=== PATIENT | female | born 1950 | race Caucasian/White ===

== ENCOUNTER 2024-01-05 06:33 | Outpatient (CLI) | payer MEDICARE, SELFPAY ==
--- NOTE | ~2024-01-05 | CT_ITS ---
EXAMINATION: CT wrist RT wo con DATE: 01/05/2024 07:00 INDICATION: Right wrist injury. TECHNIQUE: Computed tomography (CT) of the right wrist was performed without intravenous contrast. Au tomated exposure control and iterative reconstruction technique were employed. The dose-length produc t was 285.48 mGy-cm. COMPARISON: None FINDINGS: Bone alignment is normal. No fracture. There is severe osteoarthritis of lunate-capitate doc int, mild osteoarthritis of lunate-hamate joint, moderate osteoarthritis of triscaphe joint, and april re osteoarthritis of first carpometacarpal joint. There are loose bodies dorsal to the carpus. IMPRESSION: 1. Polyarticular osteoarthritis. 2. Loose bodies dorsal to the carpus. Reviewed, dictated and finalized at location A.
--- NOTE | ~2024-01-05 | CT_ITS ---
CT pelvis wo con Ordering provider: Zhou Garcia, DO History: . FALL INTITAL ENCOUNTER/ABN XR . Comparison: None. Technique: CT pelvis without oral and IV contrast. . Automated exposure control and iterative recons truction technique were employed. The dose-length product was 779.23 mGy-cm. Findings: BONES: No pelvic fracture or hip dislocation. Sclerotic lesion in the right iliac bone most likely be nign. Follow-up advised. Age appropriate degenerative changes of the visualized lower lumbar spine. T he hip joint spaces are well maintained. Bilateral sacroiliitis. SUPERFICIAL SOFT TISSUES: Normal. Linear density seen in the right buttock area may be foreign body. PELVIC ORGANS: The bladder is underfilled with thickened wall. VISUALIZED BOWEL AND MESENTERY: Normal. No free air or free fluid. No lymphadenopathy. Mild diverticu losis. Normal appendix RETROPERITONEUM: Moderate atheromatous disease. IMPRESSION: No acute osseous abnormalities. No acute pelvic abnormality. Reviewed, dictated and finalized at location A.
== END 2024-01-05 06:34 | disposition home or self-care (01) ==
PROVIDERS: PCP Student in an Organized Health Care Education/Training Program; Visit Provider Student in an Organized Health Care Education/Training Program
DX: R93.89 Abnormal findings on diagnostic imaging of other specified body structures (principal); W19.XXXA Unspecified fall, initial encounter; M24.031 Loose body in right wrist; M15.9 Polyosteoarthritis, unspecified
CPT/HCPCS: 72192; 73200

== ENCOUNTER 2024-03-01 16:38 | Outpatient (CLI) | payer MEDICARE, SELFPAY ==
--- NOTE | ~2024-03-01 | XR_ITS ---
XR knee RT 3V Ordering provider: Zhou Garcia, DO History: . acute knee pain . Comparison: None. FINDINGS: BONES: No acute fracture or dislocation. 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 Clinical evaluation for trauma advised. JOINT SPACES: Normal. Marginal osteophytes in the knee and patella. 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 SOFT TISSUES: Vascular atherosclerotic changes. Fluid seen in the suprapatellar bursa. IMPRESSION: No definite acute osseous abnormality right knee. Reviewed, dictated and finalized at location A.
== END 2024-03-01 16:39 | disposition home or self-care (01) ==
PROVIDERS: PCP Student in an Organized Health Care Education/Training Program; Visit Provider Student in an Organized Health Care Education/Training Program
DX: M25.561 Pain in right knee (principal)
CPT/HCPCS: 73562

== ENCOUNTER 2024-06-10 05:58 | Emergency (ER) | payer MEDICARE, SELFPAY ==
[2024-06-10] VITALS (17 sets, daily range): BP systolic 126–162; BP diastolic 70–83; PULSE 64–90; RESP 13–20; TEMP 36.8; O2SAT 92–98
--- NOTE | ~2024-06-10 | XR_ITS ---
Portable chest x-ray Comparison: None Clinical History: Chest pain, tachycardia Findings: Lungs are clear, without focal consolidation or pleural effusion. Cardiomediastinal silho uette is mildly prominent, status post aortic valve replacement with pacemaker device. Bones and soft tissues are unremarkable. Impression: Clear lungs. Status post aortic valve replacement with pacemaker device. Reviewed, dictated and finalized at location . NT COUNSEL Impression: Clear lungs. Status post aortic valve replacement with pacemaker device.
--- NOTE | 2024-06-10 06:08 | ECG_ITS ---
Test Date: 2024-06-10 06:11:19 Measurements Intervals [place] Rate: 81 P: 73 AR: 188 QRS: -64 QRSD: 194 T: 114 QT: 428 QTc: 499 Interpretive Statements ELECTRONIC VENTRICULAR PACEMAKER ABNORMAL RHYTHM ECG No previous ECG available for comparison Electronically Signed On 06-10-2024 18:06:06 [employer]EWABLE ENERGY ENGINEER by Leonardo Foster M.D.
[2024-06-10 06:27] LABS: Basophils Absolute Auto 0.1 K/mm3 (0.0-0.1); Basophils Percent Auto 0.6 % (0.2-1.2); Eosinophils Absolute Auto 0.2 K/mm3 (0-0.3); Eosinophils Percent Auto 2.3 % (0-4.4); Hematocrit 43.2 % (37.0-47.0); Hemoglobin 14.3 g/dL (12.0-15.0); Immature Granulocyte Absolute 0.04 K/mm3 (0.00-0.031); Immature Granulocyte Percent A 0.4 % (0-0.5); Lymphocytes Absolute Auto 3.42 K/mm3 (0.9-3.2); Lymphocytes Percent Auto 34.5 % (18.3-44.2); Mean Corpuscular HGB Conc 33.1 g/dl (32-36); Mean Corpuscular Hemoglobin 32.1 pg (26-34); Mean Corpuscular Volume 96.9 fl (80-100); Monocytes Absolute Auto 0.8 K/mm3 (0.1-0.6); Neutrophils Absolute Auto 5.4 K/mm3 (1.3-6.7); Neutrophils Percent Auto 54.2 % (45.5-73.1); Platelet Count Result 258 k/mm3 (150-375); Red Blood Count 4.46 M/mm3 (4.2-5.4); Red Cell Distribution Width 13.4 % (11.5-14.5); White Blood Count 9.9 K/mm3 (4.5-10.0)
[2024-06-10 06:35] LABS: Alanine Aminotransferase 25 U/L (6-35); Albumin Level 4.4 g/dL (3.5-5.1); Alkaline Phosphatase 117 U/L (38-126); Anion Gap 9 mmol/L (4-12); Aspartate Amino Transferase 30 U/L (14-36); Blood Urea Nitrogen 18 mg/dL (7-17); Calcium 10.8 mg/dL (8.4-10.2); Carbon Dioxide 27 mmol/L (22-30); Chloride 104 mmol/L (98-107); Estimated Glomerular Filt Rate 51; Glucose 127 mg/dL (65-110); Lipase 273 U/L (23-300); Potassium 3.8 mmol/L (3.4-5.0); Sodium 140 mmol/L (137-145)
[2024-06-10 06:44] LABS: INR 0.8
[2024-06-10 06:45] LABS: Partial Thromboplastin Time 26.4 Seconds (22.3-36.8)
[2024-06-10 06:47] LABS: Troponin I 0.017 ng/mL (0.000-0.034)
[2024-06-10 06:49] LABS: Magnesium 2.3 mg/dL (1.6-2.3)
--- NOTE | 2024-06-10 06:52 | ED_ITS ---
HPI - General Adult General Chief complaint: Recheck/Abnormal Lab/Rx <Tone Oconnor MD - Last Filed: 06/10/24 07:05> Stated complaint: feels like heart is racing <Tone Oconnor MD - Last Filed: 06/10/24 07:05> Time Seen by Provider: 06/10/24 06:13 <Tone Oconnor MD - Last Filed: 06/10/24 07:05> History of Present Illness HPI narrative: Patient is a 73-year-old female who presents to the emergency department this morning concerned that her blood pressure was low. Patient states that her blood pressure is normally 130s to 140 systolic and today it was reading around 113-114 mmHg. Patient also states that shortly prior to arrival she had an episode where she felt dizzy and felt as though her heart was racing. Patient states that this episode has subsided and she now has no symptoms. Currently denying any chest pain, any shortness of breath, denies any nausea vomiting or abdominal pain. Admits that she has a mild headache and states that she does have a history of COPD. No additional symptoms or concerns at this time. <Tone Oconnor MD - Last Filed: 06/10/24 07:05> Related Data Allergies/adverse reactions: Allergies Allergy/AdvReac Type Severity Reaction Status Date / Time Penicillins Allergy Intermediate Unknown Verified 06/10/24 06:02 venom-wasp Allergy Intermediate Unknown Verified 06/10/24 06:02 bee venom protein (honey Allergy Mild Unknown Verified 06/10/24 06:02 bee) (bees) latex Allergy Unknown Verified 06/10/24 06:02 <Tone Oconnor MD - Last Filed: 06/10/24 07:05> Review of Systems 2 Review of Systems: All systems are reviewed and are negative unless stated otherwise in the HPI. <Tone Oconnor MD - Last Filed: 06/10/24 07:05> Exam 2 Narrative: General: Alert, awake, afebrile, in no acute distress. HEENT: PERRL, no rhinorrhea, no post nasal drip, oropharynx clear. Neck: Trachea midline, no JVD, no lymphadenopathy. Cardiovascular: Regular rate and rhythm, no murmurs, rubs or gallops, no peripheral edema. Respiratory: Clear to auscultation bilaterally, no tachypnea, no wheezing, no rhonchi, no rubs, no respiratory distress. Abdomen: Soft, nontender, nondistended, no rebound, no guarding, no peritoneal signs. Musculoskeletal: No joint swelling or deformity, normal muscle tone. Skin: No rashes or petechia, no signs of infection. Psychiatric: Alert and oriented, normal behavior and judgment for situation. Neurological: Alert and oriented to person, place, and time. Follows all commands. No focal deficits, speech is clear and fluent. <Tone Oconnor MD - Last Filed: 06/10/24 07:05> Course Reevaluation(s) Reevaluation #1: 73 old female presents to the emergency department for evaluation for heart palpitations. Patient care was signed out to me by the overnight physician with anticipated disposition being discharged to home pending a does troponin. Re-evaluation patient continues to deny any heart palpitations or chest pain. Patient's repeat troponin was negative. Patient was comfortable plan for discharge home. <Addi Mclaughlin MD - Last Filed: 06/10/24 17:52> Vital Signs Vital signs: Vital Signs Temperature 98.2 F 06/10/24 06:06 Pulse Rate 90 06/10/24 06:06 Respiratory Rate 20 06/10/24 06:06 Blood Pressure 162/83 H 06/10/24 06:06 Pulse Oximetry 98 06/10/24 06:06 Oxygen Delivery Room Air 06/10/24 06:06 Temperature 98.2 F 06/10/24 06:06 Pulse Rate 68 06/10/24 10:31 Respiratory Rate 16 06/10/24 10:31 Blood Pressure 154/75 H 06/10/24 10:31 Pulse Oximetry 96 06/10/24 08:31 Oxygen Delivery Room Air 06/10/24 06:06 <Tone Oconnor MD - Last Filed: 06/10/24 07:05> Vital Signs Temperature 98.2 F 06/10/24 06:06 Pulse Rate 90 06/10/24 06:06 Respiratory Rate 20 06/10/24 06:06 Blood Pressure 162/83 H 06/10/24 06:06 Pulse Oximetry 98 06/10/24 06:06 Oxygen Delivery Room Air 06/10/24 06:06 Temperature 98.2 F 06/10/24 06:06 Pulse Rate 68 06/10/24 10:31 Respiratory Rate 16 06/10/24 10:31 Blood Pressure 154/75 H 06/10/24 10:31 Pulse Oximetry 96 06/10/24 08:31 Oxygen Delivery Room Air 06/10/24 06:06 <Addi Mclaughlin MD - Last Filed: 06/10/24 17:52> Medical Decision Making MDM Narrative Medical decision making narrative: The patient was evaluated by myself in the emergency department. History is obtained from patient who is an independent historian and physical exam was performed. External medical records were reviewed at this time. IV was established and pertinent tests were ordered. Patient was administered a g of Tylenol for headache. EKG was obtained which revealed a paced rhythm at a rate of 81 beats per minute, good capture, negative Sgarbossa. EKG was independently interpreted by me and is currently pending official cardiology read. Laboratory results obtained revealing no acute process. Imaging studies obtained included CXR which was independently interpreted by me revealing no acute cardiopulmonary process, which is pending final radiology interpretation. Differential diagnosis considerations include dehydration, electrolyte derangements, acute coronary syndrome, infectious process such as pneumonia. Comorbidities impacting this visit include none. I have evaluated and discussed social determinants of health with the patient that could potentially impact subsequent diagnosis and treatment plans. On repeat assessment of the patient, reevaluation revealed that the patient is doing well and is in no acute distress. Patient symptoms have improved since she arrived to our emergency department. Repeat vital signs were all reviewed and noted to be stable. Differential diagnosis and treatment plan were discussed with the patient at bedside. Patient agrees with discussion and after shared medical decision making agrees with discharge. All questions were answered to the patient's satisfaction. Patient will follow up with her PCP in 3-5 days. Patient was provided with strict return precautions and instructed to return to the emergency department if any new or worsening symptoms develop. The patient was discharged in stable condition. <Tone Oconnor MD - Last Filed: 06/10/24 07:05> Vital Signs Vital Signs: Vital Signs Temperature 98.2 F 06/10/24 06:06 Pulse Rate 90 06/10/24 06:06 Respiratory Rate 20 06/10/24 06:06 Blood Pressure 162/83 H 06/10/24 06:06 Pulse Oximetry 98 06/10/24 06:06 Oxygen Delivery Room Air 06/10/24 06:06 Temperature 98.2 F 06/10/24 06:06 Pulse Rate 68 06/10/24 10:31 Respiratory Rate 16 06/10/24 10:31 Blood Pressure 154/75 H 06/10/24 10:31 Pulse Oximetry 96 06/10/24 08:31 Oxygen Delivery Room Air 06/10/24 06:06 <Tone Oconnor MD - Last Filed: 06/10/24 07:05> Vital Signs Temperature 98.2 F 06/10/24 06:06 Pulse Rate 90 06/10/24 06:06 Respiratory Rate 20 06/10/24 06:06 Blood Pressure 162/83 H 06/10/24 06:06 Pulse Oximetry 98 06/10/24 06:06 Oxygen Delivery Room Air 06/10/24 06:06 Temperature 98.2 F 06/10/24 06:06 Pulse Rate 68 06/10/24 10:31 Respiratory Rate 16 06/10/24 10:31 Blood Pressure 154/75 H 06/10/24 10:31 Pulse Oximetry 96 06/10/24 08:31 Oxygen Delivery Room Air 06/10/24 06:06 <Addi Mclaughlin MD - Last Filed: 06/10/24 17:52> Lab Data Result diagrams: 06/10/24 06:17 06/10/24 06:18 <Tone Oconnor MD - Last Filed: 06/10/24 07:05> Labs: Lab Results 06/10/24 06/10/24 06/10/24 Range/Units 06:17 06:18 09:46 WBC 9.9 (4.5-10.0) K/mm3 RBC 4.46 (4.2-5.4) M/mm3 Hgb 14.3 (12.0-15.0) g/dL Hct 43.2 (37.0-47.0) % MCV 96.9 (80-100) fl MCH 32.1 (26-34) pg MCHC 33.1 (32-36) g/dl RDW 13.4 (11.5-14.5) % Plt Count 258 (150-375) k/mm3 MPV 9.0 (7.4-10.4) fl Immature Gran % (Auto) 0.4 (0-0.5) % Neut % (Auto) 54.2 (45.5-73.1) % Lymph % (Auto) 34.5 (18.3-44.2) % Beadle % (Auto) 8.0 (2.6-8.5) % Eos % (Auto) 2.3 (0-4.4) % Baso % (Auto) 0.6 (0.2-1.2) % Lymph # (Auto) 3.42 H (0.9-3.2) K/mm3 Beadle # (Auto) 0.8 H (0.1-0.6) K/mm3 Eos # (Auto) 0.2 (0-0.3) K/mm3 Baso # (Auto) 0.1 (0.0-0.1) K/mm3 Abs Immat Gran (auto) 0.04 H (0.00-0.031) K/mm3 Absolute Neuts (auto) 5.4 (1.3-6.7) K/mm3 Absolute Nucleated RBC 0.000 (0.0-0.012) K/mm3 Nucleated RBC % 0.0 (0.0-0.2) % PT 12.0 (11.1-14.7) Seconds INR 0.8 APTT 26.4 (22.3-36.8) Seconds Sodium 140 (137-145) mmol/L Potassium 3.8 (3.4-5.0) mmol/L Chloride 104 (98-107) mmol/L Carbon Dioxide 27 (22-30) mmol/L Anion Gap 9 (4-12) mmol/L BUN 18 H (7-17) mg/dL Creatinine 1.05 H (0.7-1.0) mg/dL Estim Creat Clear Calc Not Reportable Estimated GFR 51 L (59 - ) Glucose 127 H (65-110) mg/dL Calcium 10.8 H (8.4-10.2) mg/dL Magnesium 2.3 (1.6-2.3) mg/dL Total Bilirubin 1.0 (0.2-1.3) mg/dL AST 30 (14-36) U/L ALT 25 (6-35) U/L Alkaline Phosphatase 117 (38-126) U/L Troponin I 0.017 0.016 (0.000-0.034) ng/mL Total Protein 8.0 (6.3-8.2) g/dL Albumin 4.4 (3.5-5.1) g/dL Lipase 273 (23-300) U/L Influenza A (RT-PCR) Negative (Negative) Influenza B (RT-PCR) Negative (Negative) RSV (RT-PCR) Negative (Negative) SARS-CoV-2 RNA (RT-PCR) Negative (Negative) <Tone Oconnor MD - Last Filed: 06/10/24 07:05> Lab Results 06/10/24 06/10/24 06/10/24 Range/Units 06:17 06:18 09:46 WBC 9.9 (4.5-10.0) K/mm3 RBC 4.46 (4.2-5.4) M/mm3 Hgb 14.3 (12.0-15.0) g/dL Hct 43.2 (37.0-47.0) % MCV 96.9 (80-100) fl MCH 32.1 (26-34) pg MCHC 33.1 (32-36) g/dl RDW 13.4 (11.5-14.5) % Plt Count 258 (150-375) k/mm3 MPV 9.0 (7.4-10.4) fl Immature Gran % (Auto) 0.4 (0-0.5) % Neut % (Auto) 54.2 (45.5-73.1) % Lymph % (Auto) 34.5 (18.3-44.2) % Beadle % (Auto) 8.0 (2.6-8.5) % Eos % (Auto) 2.3 (0-4.4) % Baso % (Auto) 0.6 (0.2-1.2) % Lymph # (Auto) 3.42 H (0.9-3.2) K/mm3 B[place]le # (Auto) 0.8 H (0.1-0.6) K/mm3 Eos # (Auto) 0.2 (0-0.3) K/mm3 Baso # (Auto) 0.1 (0.0-0.1) K/mm3 Abs Immat Gran (auto) 0.04 H (0.00-0.031) K/mm3 Absolute Neuts (auto) 5.4 (1.3-6.7) K/mm3 Absolute Nucleated RBC 0.000 (0.0-0.012) K/mm3 Nucleated RBC % 0.0 (0.0-0.2) % PT 12.0 (11.1-14.7) Seconds INR 0.8 APTT 26.4 (22.3-36.8) Seconds Sodium 140 (137-145) mmol/L Potassium 3.8 (3.4-5.0) mmol/L Chloride 104 (98-107) mmol/L Carbon Dioxide 27 (22-30) mmol/L Anion Gap 9 (4-12) mmol/L BUN 18 H (7-17) mg/dL Creatinine 1.05 H (0.7-1.0) mg/dL Estim Creat Clear Calc Not Reportable Estimated GFR 51 L (59 - ) Glucose 127 H (65-110) mg/dL Calcium 10.8 H (8.4-10.2) mg/dL Magnesium 2.3 (1.6-2.3) mg/dL Total Bilirubin 1.0 (0.2-1.3) mg/dL AST 30 (14-36) U/L ALT 25 (6-35) U/L Alkaline Phosphatase 117 (38-126) U/L Troponin I 0.017 0.016 (0.000-0.034) ng/mL Total Protein 8.0 (6.3-8.2) g/dL Albumin 4.4 (3.5-5.1) g/dL Lipase 273 (23-300) U/L Influenza A (RT-PCR) Negative (Negative) Influenza B (RT-PCR) Negative (Negative) RSV (RT-PCR) Negative (Negative) SARS-CoV-2 RNA (RT-PCR) Negative (Negative) <Addi Mclaughlin MD - Last Filed: 06/10/24 17:52> Discharge Plan Discharge Clinical Impression: Near syncope <Tone Oconnor MD - Last Filed: 06/10/24 07:05> Patient Disposition: Home, Self-Care <Tone Oconnor MD - Last Filed: 06/10/24 07:05> Condition: Improved <Tone Oconnor MD - Last Filed: 06/10/24 07:05> Instructions: Antibiotic Form, Near Syncope (ED) <Tone Oconnor MD - Last Filed: 06/10/24 07:05> Additional Instructions: Please follow-up with your family doctor within the next 3-5 days. Return to the emergency department if any new or worsening symptoms develop. <Tone Oconnor MD - Last Filed: 06/10/24 07:05> Patient Language: Estonian <Tone Oconnor MD - Last Filed: 06/10/24 07:05> Follow-up/Referrals: Radha,DO Zhou [Primary Care Provider] - 3 Days <Tone Oconnor MD - Last Filed: 06/10/24 07:05>
[2024-06-10 07:04] LABS: Influenza A QL RT-PCR Negative (Negative); Influenza B QL RT-PCR Negative (Negative); RSV RNA, RT-PCR Negative (Negative); SARS-CoV-2 RNA PCR Negative (Negative)
[2024-06-10] MEDS: ACETAMINOPHEN 500 MG TABLET 1000 MG PO (07:20)
[2024-06-10 10:15] LABS: Troponin I 0.016 ng/mL (0.000-0.034)
--- OUTSIDE RECORDS SUMMARY | 2024-06-13 11:23 | XMS_ITS | Encounter Summary ---
Author Organization [facility] Address [facility] [facility] [place] [address] [place] [address] Care Team Providers Care Employee Benefits Specialist Name Role Phone Radha Zhou Lopez DO Primary Care Provider + Shiela Reyes RN Unavailable [phone] Encounter Details Date Type Department Care Team (Late st Contact Info) Description 12/06/2019 Prep for Procedure [facility] [place], [place] [id number] Eliseo Shi MD 3 [facility] [address] [place] [phone] Social History Tobacco Use Types Packs/Day Years Used Date Smoking Tobacco: Every Day Cigarettes Smokeless Tobacco: Never Alcohol Use Standard Drinks/Week Comments No 0 (1 standard drink = 0.6 oz pur e alcohol) AUDIT-C Answer Date Recorded Frequency of Alcohol Consumption Never 04/19/2018 Average Number of Drinks Not on file 018 Frequency of Binge Drinking Not on file 03/23 PHQ-2 Answer Date Recorded PHQ-2 Score 4 05/30/2019 Comments No Sex and Gender Information Value Date Recorded Sex Assigned at Not on file Legal Sex Female 5:03 PM DOLL WIG HACKLER Gender Identity Not on file Sexual Orientation Not on file documented as of this encounter Plan of Treatment Upcoming Encounters Date Type Department Care Team (Late st Contact Info) Description 07/18/2024 9:20 AM DOLL WIG HACKLER Office Visit [facility] [address] [phone] Zhou Garcia DO [address] [place] [address] documented as of this encounter Visit Diagnoses Diagnosis Vomiting- Primary Vomiting alone documented in this encounter Additional Health Concerns Infection Onset Date Last Indicated Resolved Time COVID-19 Rule Out 12/21/2021 12/21/2021 12/21/2021 2:46 PM CDT COVID-19 Rule Out 12/21/2021 12/21/2021 12/22/2021 1:34 PM CDT COVID-19 Rule Out 02/06/2023 02/06/2023 02/06/2023 9:22 AM CDT COVID-19 Rule Out 02/06/2023 01/17/2023 02/06/2023 9:25 AM CDT COVID-19 Rule Out 07/04/2023 07/04/2023 07/04/2023 9:34 AM DOLL WIG HACKLER COVID-19 Rule Out 07/04/2023 07/04/2023 07/06/2023 12:49 AM DOLL WIG HACKLER COVID-19 Rule Out 10/04/2023 10/04/2023 10/04/2023 9:56 AM CDT documented as of this encounter Care Teams Employee Benefits Specialist Relationship Specialty Start Date End Date Zhou Garcia DO [address] [place] [address] PCP - General FAMILY PRACTICE 04/18/18 Shiela Reyes, RN [facility] [place] [address] Motor Vehicle Assembler (Ambulatory) REGISTERED NURSE 05/11/20 documented as of this encounter
--- OUTSIDE RECORDS SUMMARY | 2024-06-13 11:23 | XMS_ITS | Clinical Summary ---
Author Organization [facility] [address] Address [address] [place] [address] Care Team Providers Care Naturopathic Oncology Provider Name Role Phone Zhou Garcia DO Primary Care Provide r Allergies Active Allergy Reactions Criticality Noted Date Comments Latex Unknown 04/19/2018 Sores Penicillins Hives,Rash Medium 04/19/2018 Penicillin allergy history form completed. Moderate risk Potassium Chloride Rash Medium 04/19/2018 [place] and rash with IV. Thinks she had a problem with oral but can't recall Venom-Wasp Swelling Medium 05/08/2020 Medications metFORMIN XR (GLUCOPHAGE XR) 500 mg 24 hr tablet Take 2 tablets (1,000 mg total) by mouth nightly 05/29/19 20 Active albuterol HFA (PROVENTIL HFA,VENTOLIN HFA,PROAIR HFA) 90 mcg/actuation inhalerIndications :Chronic Obstructive Pulmonary Disease Inhale 2 puffs every 6 (six) hours as needed 08/18/19 21 Active ascorbic acid-vitamin E-biotin 7.5-7.5-1,250 mg-unit-mcg tablet,chewable Take 1 tablet/chew tab by mouth nightly Crush medications for 2 weeks after surgery 10/09/19 22 Active benazepriL (LOTENSIN) 40 mg tabletIndications: hypertension Take 1 tablet (40 mg total) by mouth nightly Crush medications for 2 weeks after surgery 10/09/19 22 Active multivitamin tabletIndications: Vitamin Deficiency Prevention Take 1 tablet by mouth nightly Crush medications for 2 weeks after surgery 10/09/19 22 Active simvastatin (ZOCOR) 20 mg tablet Take 1 tablet (20 mg total) by mouth nightly Crush medications for 2 weeks after surgery 10/09/19 Active amLODIPine (NORVASC) 5 mg tabletIndications: hypertension Take 2 tablets (10 mg total) by mouth nightly Crush medications for 2 weeks after surgery 2 10/09/19 Active promethazine (PHENERGAN) 25 mg suppository Insert 1 suppository (25 mg total) into the rectum every 6 (six) hours as needed for nausea or vomiting 12 each 2 10/09/19 Active Additional Information Patient not taking.Reported on 05/16/2023 ondansetron ODT (ZOFRAN-ODT) 4 mg disintegrating tabletIndications: Prevention of Post-Operative Nausea and Vomiting Take 1 tablet (4 mg total) by mouth every 6 (six) hours as needed for nausea or vomiting (1st line) 20 tablet 10/09/19 Active Additional Information Patient not taking.Reported on 05/16/2023 acetaminophen (TYLENOL) 500 mg tabletIndications: Pain Take 1 tablet (500 mg total) by mouth every 6 (six) hours as needed for pain Crush medications for 2 weeks after surgery 30 tablet 10/09/19 Active Additional Information Patient not taking.Reported on 05/16/2023 polyethylene glycol (MIRALAX) 17 gram packetIndications: constipation Take 1 packet (17 g total) by mouth daily 10 packet 10/09/19 Active triamterene-hydroC HLOROthiazide (triamterene-hydro CHLOROthiazide) 37.5-25 mg per tablet/capsule Take 1 tablet/capsule by mouth nightly Crush medications for 2 weeks after surgery 10/09/19 Active vitamin E (AQUASOL E) 200 unit capsule Take 1 capsule (200 Units total) by mouth nightly Restart in 2 weeks after surgery 10/23/19 Active oxyCODONE (ROXICODONE) 5 mg immediate release tabletIndications: Pain Take 1 tablet (5 mg total) by mouth every 4 (four) hours as needed for pain 10 tablet 10/09/19 Active Additional Information Patient not taking.Reported on 05/16/2023 aspirin 81 mg enteric coated tablet Take 1 tablet (81 mg total) by mouth daily Active furosemide (LASIX) 20 mg tabletIndications: Edema,hypertension Take 1 tablet (20 mg total) by mouth nightly Crush medications for 2 weeks after surgery 10/09/19 22 022 Discontin ued(Stop Taking at Discharge ) Active Problems Problem Noted Date Diagnosed Date H/O prosthetic aortic valve replacement 01/28/20 22 Achalasia 08/03/2021 Overview (08/03/2021): Added automatically from request for surgery [id number] Tobacco dependence syndrome 08/07/2020 Pacemaker lead malfunction 06/26/2020 Overview (07/19/2021): Added automatically from request for surgery [id number] Added automatically from request for surgery [id number] Esophageal dysphagia 06/26/2020 Overview (07/03/2020): Added automatically from request for surgery [id number] Heart block 06/17/2020 S/P placement of cardiac pacemaker 05/25/2020 Atrioventricular block, complete (CMS/HCC) 05/08 Acute congestive heart failure (CMS/HCC) 020 Chronic obstructive pulmonary disease (CMS/HCC) 05/08/2020 Hypercalcemia 05/08/2020 Presence of cardiac pacemaker 05/08/2020 Overview (03/30/2022): Biotronik Edora Dual Pacemaker. Dx; AV Block complete. DOI 05/08/2020-Dr. Silvestre/Judy. Biotronik remote monitoring. 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 09/2019 Nonrheumatic aortic valve stenosis 06/20/2019 Rosacea 06/09/2019 Type 2 diabetes mellitus wit hout complication, without long-term current use of insulin (CMS/HCC) 04/23/2019 Chronic renal failure syndrome 04/23/2019 Hyperlipidemia 04/23/2019 Esophageal dysphagia 01/06/2019 Overview (07/19/2021): Added automatically from request for surgery [id number] Heart murmur 01/06/2019 Tobacco use disorder 01/06/2019 Medical non-compliance 11/27/2018 Hypertension 05/03/2018 Transient ischemic attack 05/03/2018 Encounter for other preprocedural examination Encounters Date Type Department Care Team Description 05/14/2024 Orders Only [facility] [address] [place] [phone] Murphy Kim MD Atrioventricular block, complete (CMS/HCC) (HCC) (Primary Dx); Presence of cardiac pacemaker 04/30/2024 7:30 AM BUSINESS UNIT MANAGER Ancillary Procedure [facility] [address] [place] [phone] Atrioventricular block, complete (CMS/HCC) (HCC) from Last 3 Months Immunizations Name Administration Dates Next Due Influenza, Unspecified 04/21/2020 Surgical History Surgery Date Site/Laterality Comments CARDIAC CATHETERIZATION SKIN CANCER EXCISION Right cheek BREAST LUMPECTOMY Left X 2 ORAL SURGERY TOE SURGERY CARDIAC PACEMAKER PLACEMENT Left UPPER GASTROINTESTINAL ENDOSCOPY 08/03/2020 HEART SURGERY 06/22/2020 - 07/19/2020 valve Medical History Medical History Date Comments TIA (transient ischemic attack) COPD (chronic obstructive pulmonary disease) (HC C) Cirrhosis (HCC) Dysphagia Aortic stenosis GERD (gastroesophageal reflux disease) Type 2 diabetes mellitus (HCC) Hypertension Hyperlipidemia Diverticulosis AV block CKD (chronic kidney disease) Arthritis Sleep apnea 2019 does not use cpa p Skin cancer of face cheek Motion sickness Family History Medical History Relation Name Comments Heart disease Brother Heart disease Father Heart disease Mother Anesthesia problems Neg Hx Relation Name Status Comments Brother Father Mother Social History Tobacco Use Types Packs/Day Years Used Date Smoking Tobacco: Every Day Cigarettes 1 57.1 Started: 1968 Smokeless Tobacco: Never Tobacco Cessation:Ready to Q uit: Not Asked; Counseling Given: Not Answered Alcohol Use Standard Drinks/Week Comments Not Currently 0 (1 standard drink = 0.6 oz pur e alcohol) Social Connection and Isolat ion Panel [NHANES] Answer Date Recorded In a typical week, how many times do you talk on the phone with family, friends, or neighbors? More than three times a week 07/02/2020 How often do you get togethe r with friends or relatives? More than three times a week 07/02/2020 How often do you attend chur ch or yarsanism services? Never 07/02/2020 Do you belong to any clubs o r organizations such as denominational groups, unions, fraternal or athletic groups, or school groups? No 07/02/2020 How often do you attend meet ings of the clubs or organizations you belong to? Never 07/02/2020 Are you , , di vorced, , never , or living with a partner? 07/02/2020 AUDIT-C Answer Date Recorded Q1: How often do you have a drink containing alc ohol? Never 10/07/2021 Average Number of Drinks Not on file 022 Q3: How often do you have si x or more drinks on one occasion? Never 10/07/2021 Overall Financial Resource Strain (CARDIA) Answe r Date Recorded How hard is it for you to pa y for the very basics like food, housing, medical care, and heating? Not very hard 07/02/2020 PHQ-2 Answer Date Recorded PHQ-2 Total Score (If total score is 3 or more points, staff should administer the PHQ-9) 2 07/28/2020 Hunger Vital Sign Answer Date Recorded Within the past 12 months, y ou worried that your food would run out before you got the money to buy more. Never true 07/02/19 21 Within the past 12 months, t he food you bought just didn't last and you didn't have money to get more. Never true 07/02/2020 PRAPARE - Transportation Answer Date Re corded In the past 12 months, has l ack of transportation kept you from medical appointments or from getting medications? No 06/22 In the past 12 months, has l ack of transportation kept you from meetings, work, or from getting things needed for daily living? No 07/02/2020 Housing Stability Vital Sign Answer Jacoby e Recorded In the last 12 months, was t here a time when you were not able to pay the mortgage or rent on time? No 07/02/2020 In the last 12 months, how many places have you lived? 1 07/02/2020 In the last 12 months, was t here a time when you did not have a steady place to sleep or slept in a halfway (including now)? No 07/02/2020 Comments No Sex and Gender Information Value Date Recorded Sex Assigned at Not on file Legal Sex Female 4:15 AM BUSINESS UNIT MANAGER Gender Identity Not on file Sexual Orientation Not on file Obstetrics History Last Filed Vital Signs Vital Sign Reading Time Taken Comments Blood Pressure 130/80 05/16/2023 1:46 PM BUSINESS UNIT MANAGER Pulse 66 05/16/2023 1:46 PM BUSINESS UNIT MANAGER Temperature 36.5 ??C (97.7 ??F) 10/08/2021 12:05 PM C DT Respiratory Rate 18 10/08/2021 12:05 PM CDT Oxygen Saturation 97% 05/16/2023 1:46 PM BUSINESS UNIT MANAGER Inhaled Oxygen Concentration - - Weight 97.5 kg (215 lb) 05/16/2023 1:46 PM BUSINESS UNIT MANAGER Height 167.6 cm (5' 6 ) 05/16/2023 1:46 PM BUSINESS UNIT MANAGER Body Mass Index 34.7 05/16/2023 1:46 PM BUSINESS UNIT MANAGER Plan of Treatment Health Maintenance Due Date Last Done Comments Albumin Creatinine Ratio, Urine 1950 Colon Cancer Screening-Colonoscopy 1950 Hepatitis C Screening 1950 Dilated Eye Exam 1949 Foot Exam 1950 Hepatitis B Screening 09/24/1968 Well Visit 65+ 2014 Depression Screening 07/28/2021 07/28/2020 Hemoglobin A1C 03/23/2022 09/20/2021 eGFR 09/20/2022 09/20/2021, 06/22, 07/06/2020, Additional history exists Fall Risk Assessment 10/08/2022 10/08/2021 Breast Cancer Screening-Mammogram 07/05/2023 023, 07/05/2022 Covid-19 Vaccine (2023-06 5 season) 2024 05/27/2021, 09/09/2020, 08/12/2020 Influenza Vaccine (#1) 2024 , 03/25/2021, 04/21/2020, Additional history exists Osteoporosis Screening-Bone Density Scan 07/05/2024 07/05/2022 Lipid Panel 03/19/2025 03/19/2024, 02/0 10/2023, 05/16/2023, Additional history exists DTaP/Tdap/Td Vaccine (3 - Td or Tdap) 05/08/2029 05/08/2019, 06/25/2015, 07/07/2004 Pneumococcal vaccine 65+ Completed 022, 06/25/2015, 04/19/2012 Zoster Vaccine Completed 04/25/2022, 01/04/2022 Medical Devices Implanted Type Area Public Relations Intern Device Identifier Shelf Expiration Date Model / Serial / Lot Pacemaker- [id number] Implanted:2020 (Quantity not on file) Pacemaker N/A: Heart [employer] Biotronik Inc [id number] Promri Solia S 60cm Lead Pacing Steroid Eluting - [id number] - [id number] Implanted:Qty: 1 on 05/08/2020 by Jase Silvestre MD at [facility] Left: Chest Biotronik Inc 02/18/2022 [id number] / [id number] / Biotronik Inc [id number] Solia S 53cm Steroid Elute Bipolar Active Fixation Endocardial - [id number] - [id number] Implanted:Qty: 1 on 05/08/2020 by Jase Silvestre MD at [facility] Left: Chest Biotronik Inc 03/21/2022 [id number] / [id number] / Bi[employer]ronik Inc [id number] Edora Promri 31m62r4.5mm Dual Chamber Rate Adaptive Unipolar Bipolar - [id number] - [id number] Implanted:Qty: 1 on 05/08/2020 by Jase Silvestre MD at [facility] Left: Chest Biotronik Inc 07/19/2021 [id number] / [id number] / [employer] [id number] Inspiris Resilia Leaflet Sewing Ring 23mm Valve Aortic Bovine - [id number] - [id number] Implanted:Qty: 1 on 07/01/2020 by Jesse Segura MD at [facility] N/A: Heart [employer] 01/15/2024 [id number] / [id number] / Procedures Procedure Name Priority Date/Time Associated Diagnosis Comments POCT LIPID PANEL Routine 05/16/2023 2:41 PM BUSINESS UNIT MANAGER Lipid screening EGFR Routine 09/20/2021 4:52 PM CDT Preoperative testing POCT HEMOGLOBIN A1C Routine 09/20/2021 4 :23 PM CDT from Last 3 Months or Most Recently Relevant to Health Maintenance Results * POCT lipid panel (05/16/2023 2:41 PM BUSINESS UNIT MANAGER) Cholesterol, POC 158 mg/dL HDL, POC 49 mg/dL Triglycerides, POC 262 mg/dL LDL Cholesterol POC 57 mg/dL Chol/HDL Ratio, POC 1.2 Non-HDL Cholesterol, POC 109 mg/dL Cholesterol Total, POC 158 mg/dL Capillary blood 05/16/2023 2 :41 PM BUSINESS UNIT MANAGER us Murphy Kim MD POINT OF CARE TEST ORDER YESENIA Final Result * (ABNORMAL) eGFR (09/20/2021 4:52 PM CDT) eGFR 31(L) 90 - 130 mL/min/1. 73 m2 [facility] Comment: Interpretive Data Reference Interval Normal ?>/= 90 mL/min/1.73m2 Mildly decreased* ? 60 - 89 mL/min/1.73m2 Mildly to moderately decreased ?45 - 59 mL/min/1.73m2 Moderately to severely decreased ??30 - 44 mL/min/1.73m2 Severely decreased ?15 - 29 mL/min/1.73m2 Kidney Failure ?< 15 ??mL/min/1.73m2 *Relative to young adult level Estimated glomerular filtration rate is determined by the 2020 CKD-EPI equation recommended by the National Kidney Foundation (A Unifying Approach to GFR Estimation: Recommendations of the NKF-ASK Task Force on Reassessing the Inclusion of Race in Diagnosing Kidney Disease, JASN 202). The CKD-EPI equation should not be used for patients with unstable renal function and has not been validated in children and those over 70. Current interpretive data was last reviewed 2021. Blood 09/20/2021 4:52 PM CDT 09/20/2021 5:36 PM CDT Odalys Thomas NP LAB BLOOD ORDERABLES F inal Result Performing Organization Address [facility] de Phone Number [facility] [employer] [place] [address] * (ABNORMAL) POCT hemoglobin A1c (09/20/2021 4:23 PM CDT) Hgb A1C, POC 6.7(H) 4.0 - 5.6 % [facility] Est Average Gluc POC 146 mg/dL [facility] Comment: The ADA recommends reporting an estimated Average Glucose (eAG) with all Hemoglobin A1c results using the equation derived from a study of 507 normal and diabetic adults. ??Minority populations were underrepresented and children were not included. ?? (Diabetes Care 31:4010-1667, 2008). ??The eAG is not equivalent to a fasting glucose. Blood 09/20/2021 4:23 PM CDT 09/20/2021 4:23 PM CDT Murphy Ellsworth MD PhD POINT OF CARE TEST ORD ERABLES Final Result Performing Organization Address [facility] de Phone Number [facility] [place] [place] [address] from Last 3 Months or Most Recently Relevant to Health Maintenance Insurance [employer] [facility] Address: [address] [address] [place] [address] [employer] [facility] MDCR HMO REF [facility] Address: [address] [address] [place] [address] [facility] Address: [address] [address] [place] [address] MEDICARE [employer] [facility] MED[facility] Address: [address] [address] [place] [address] Advance Directives For more information, please contact: [phone] * Full Code (Latest Code Status on File) Date Activated Date Inactivated Comments 10/07/2021 5:50 PM 10/08/2021 6:47 PM * Full Code Date Activated Date Inactivated Comments 07/01/2020 2:59 PM 07/07/2020 9:55 PM * Full Code Date Activated Date Inactivated Comments 05/08/2020 3:55 AM 05/09/2020 8:05 PM Care Teams Naturopathic Oncology Provider Relationship Specialty Start Date End Date Zhou Garcia DO [address] [place] [id number] PCP - General Family Medicine 07/12/18
--- OUTSIDE RECORDS SUMMARY | 2024-06-13 11:23 | XMS_ITS | Patient Health Summary ---
Author Organization [facility] Address [address] [place] [address] Care Team Providers Care Foundry Process Engineer Name Role Phone Zhou Garcia DO Primary Care Provider + Note from [facility],non-owned Affiliates and Associated Physician Practices is amultiple site organization consisting of ambulatory clinics and hospital sitesin [place], [place], [place] and [place]. This disclosure is being madepursuant to the Care Everywhere program and may not contain all information available regarding this patient. Last updated 18.[facility] Allergies * Latex(Itching,Unknown) * Penicillins(Urticaria,Rash) -Medium Criticality * Wasp Venom Protein(Swelling) -Medium Criticality Medications * Be aware that medications may not be up to date on this document. Alwaysverify current medications with the patient. * albuterol HFA (Proventil; Ventolin; Proair) 108 (90 Base) MCG/ACT inhaler (Started 08/13/2022) * amLODIPine (Norvasc) 10 MG tablet(Started 06/03/2022) Take 1 (one) tablet by mouth once daily * aspirin EC (Ecotrin) 81 MG tablet Take 1 (one) tablet by mouth once daily * benazepril (Lotensin) 40 MG tablet(Started 07/18/2022) 1 tablet Orally Once a day for 30 day(s) * Biotin w/ Vitamins C & E (Hair Skin & Nails Gummies) 1250-7.5-7.5 MCG-MG-UNT CHEW(Started 10/08/2021) Take by mouth at bedtime * Blood Glucose Monitoring Suppl (ONE TOUCH ULTRA 2) w/Device KIT(Started 11/05/2021) Use to check blood glucose daily for Diabetes. * furosemide (Lasix) 40 MG tablet(Started 07/18/2022) Take 1 (one) tablet by mouth once daily * Lancets (ONETOUCH DELICA PLUS 33G EXTRA FINE LANCET)(Started 11/05/2021) USE 1 TO CHECK GLUCOSE ONCE DAILY * metFORMIN ER 24hr (Glucophage XR) 500 MG tablet(Started 08/01/2022) TAKE 2 TABLETS BY MOUTH ONCE DAILY WITH BREAKFAST * simvastatin (Zocor) 40 MG tablet(Started 01/20/2022) TAKE 1 TABLET BY MOUTH NIGHTLY AT BEDTIME * vitamin E (Tocopheryl) 200 UNIT capsule(Started 10/22/2021) Take 1 (one) capsule by mouth at bedtime * Multiple Vitamins-Minerals (CENTRUM SILVER 50+WOMEN PO) Take by mouth once daily * Probiotic Product (PROBIOTIC GUMMIES PO) Take by mouth once daily * Specialty Vitamins Products (BRAIN PO) Take 300 mg by mouth once daily * ibuprofen (Motrin) 600 MG tablet(Started 09/21/2022) Take 1 (one) tablet by mouth every 6 hours as needed for Pain * oxyCODONE, immediate release, (Roxicodone) 5 MG tablet(Started 09/21/2022) Take 1 (one) tablet by mouth every 4 hours as needed for Pain * ondansetron, disintegrating, (Zofran ODT) 4 MG tablet(Started 09/21/2022) Take 1 (one) tablet by mouth every 6 hours as needed for Nausea/Vomiting Allow tablet to dissolve on the tongue * senna (Senokot) 8.6 MG tablet(Started 09/21/2022) Take 2 (two) tablets by mouth once daily * nystatin (Mycostatin) 392133 UNIT/GM powder(Started 10/06/2022) Apply to affected area 2 times daily * fluconazole (Diflucan) 150 MG tablet(Started 10/06/2022) Take 1 tablet now and repeat in 72 hours 1 refill by 10/06/2023 Active Problems Problem Noted Date Diagnosed Date Osteoporosis 08/25/2022 Osteoporosis 08/25/2022 Morbid (severe) obesity due to excess calories 0 08/03/2022 Endometrial carcinoma 08/01/2022 Benign hypertension with stage 3b chronic kidney disease 12/22/2021 Stage 3 chronic kidney disease 12/14/2021 GERD (gastroesophageal reflux disease) Presbyesophagus 04/20/2021 Alcoholic cirrhosis of liver without ascites Type 2 diabetes mellitus with diabetic polyneuro terry 04/20/2021 Atrioventricular block, complete 08/07/2020 Tobacco dependence syndrome 05/25/2020 Acute congestive heart failure 05/08/2020 Atrioventricular block, complete 05/08/2020 Chronic obstructive pulmonary disease 05/08/2020 Adenoma of colon 02/23/2020 Chronic renal failure syndrome 04/23/2019 Hyperlipidemia 04/23/2019 Dysphagia 01/06/2019 Essential (primary) hypertension 05/03/2018 Social History Tobacco Use Types Packs/Day Years Used Date Smoking Tobacco: Every Day Cigarettes Alcohol Use Standard Drinks/Week Comments Not Currently 0 (1 standard drink = 0.6 oz pur e alcohol) Sex and Gender Information Value Date Recorded Sex Assigned at Not on file Gender Identity Not on file Sexual Orientation Not on file Last Filed Vital Signs Vital Sign Reading Time Taken Comments Blood Pressure 152/90 09/21/2022 3:49 PM CDT Pulse 77 09/21/2022 3:49 PM CDT Temperature 36.3 ??C (97.4 ??F) 09/21/2022 12:20 PM C DT Respiratory Rate 16 09/21/2022 3:49 PM CDT Oxygen Saturation 95% 09/21/2022 3:49 PM CDT Inhaled Oxygen Concentration - - Weight 98.4 kg (217 lb) 09/21/2022 6:03 AM CDT Height 165.1 cm (5' 5 ) 09/21/2022 6:03 AM CDT Body Mass Index 36.11 09/21/2022 6:03 AM CDT Procedures * CARDIAC RHYTHM STRIP ORDER(Performed 2022) * GLUCOSE - POINT OF CARE(Performed 09/21/2022) * PATHOLOGY TISSUE EXAM (STL)(Performed 09/21/2022) Performed for Diagnosis unknown * ENDOTRACHEAL TUBE NOTE(Performed 09/21/2022) * CYTOLOGY NON-RATE AND COST ANALYST PANEL (STL)(Performed 09/21/2022) Performed for Diagnosis unknown * ROBOTIC ASSISTED HYSTERECTOMY TOTAL(Performed 09/21/2022) Performed for Diagnosis unknown * BLOOD TYPE VERIFICATION(Performed 09/21/2022) * TYPE + SCREEN PANEL(Performed 09/21/2022) * COMPREHENSIVE METABOLIC PANEL(Performed 09/21/2022) Performed for Preop examination * GLUCOSE - POINT OF CARE(Performed 09/21/2022) * LAB RESULTS ORDER(Performed 09/14/2022) Results * CARDIAC RHYTHM STRIP ORDER (2022 4:17 PM CDT) Narrative 2022 4:17 PM CDT Ordered by an unspecified provider. Scanned Document CARDIAC SERVICES ORD ERABLES * (ABNORMAL) GLUCOSE - POINT OF CARE (09/21/2022 9:54 AM CDT) Only the most recent of2 resultswithin the time period is included. Pathologist [facility] Glucose WB/POC 235(H) 70 - 106 mg/dL 09/21/2022 10:01 AM CDT [facility] Specimen Type Cap Fingerstick 2022 10:01 AM CDT [facility] Blood BLOOD SPECIMEN / Unknown 09/21/2022 9:54 AM CDT 09/21/2022 10:00 AM CDT Joni Fair MD LAB - POINT OF CARE ORDERABLES Performing Organization Address City/State/[facility] Co de Phone Number [facility] [address] [place] [address] * PATHOLOGY TISSUE EXAM (STL) (09/21/2022 8:27 AM CDT) Pathologist [facility] Case Report Surgical Pathology Report ? Case: [id number] ? Authorizing Provider: ??Joni Fair MD ? Collected: ? 09/21/2022 08:27 AM ? Ordering Location: ? [facility] ? Received: ?09/21/2022 10:33 AM ? Pathologist: ? Anabelle Fajardo MD ? Specimens: ?? A) - Bath Lymph Node, LEFT External Iliac Bath lymph node ? B) - Bath Lymph Node, RIGHT external ILIAC Bath lymph node ? C) - Uterus w BSO, UTERUS, CERVIX, BOTH TUBES, BOTH OVARIES ? 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 Operative procedure: hysterectomy, bilateral salpingo-oophorectomy , sentinel lymph node dissection. 09/26/2022 10:10 AM T [facility] Gross Description The specimen A is received in formalin in one container labeled with the patient's name, date of and sentinel lymph node left external iliac+ . It consists of two fragments of fibrofatty tissue measuring 2.3 x 1.5 x 0.6 cm and 2.5 x 1.0 x 0.8 cm. This is dissected to show three lymph nodes measuring 0.7 x 0.5 x 0.4 cm, 1.0 x 0.4 x 0.4 cm and 1.6 x 0.6 x 0.4 cm. The lymph node is sectioned and entirely submitted in cassette A1- A2 as follows: A1-2 lymph nodes, bisected (1 lymph node inked green), A2-1 lymph node, bisected. The specimen B is received in formalin in one container labeled with the patient's name, date of and sentinel lymph node, right external iliac+ . It consists of one fragment of fibrofatty tissue measuring 4.7 x 1.5 x 0.7 cm. This is dissected to show one large lymph node 4.3 x 0.5 x 0.3. The specimen is sectioned and entirely submitted in cassettes B1-B3. The specimen is received in formalin in one container labeled with the patient's name, date of and uterus with BSO (uterus, cervix, both+ bilateral) . It consists of a uterus with cervix, bilateral fallopian tubes and ovaries. The uterus with cervix measures 7.2 x 3.5 x 3.5 cm and weighs 93.69 g. The serosa of the uterus is purple-baird with minimal adhesions. The cervix measures 2.8 cm in diameter with the external os measuring 0.5 cm in diameter and pale-baird herringbone cervical mucosa. The endometrial cavity measures 3.5 x 3.5 cm with a pedunculated 3.6 x 3.0 x 2.0 cm pale-baird variegated mass with focal hemorrhagic and cystic areas arising from the fundus/anterior uterine wall. In addition, there is a 1.6 x 0.6 cm white-baird lesion at the anterior endometrium extending to the fundus. The uterine wall shows two firm yellow-baird mass measuring 1.8 x 2.0 x 1.5 cm (anterior wall. subserosal) and 0.4 x 0.2 x 0.4 (posterior wall) cm. The cervix is sectioned to show pale-baird cut surface with no distinctive lesions. The left fallopian tube with fimbria measures 5.3 cm in length x 0.4 to 1.2 cm in diameter with a few paratubal cysts. The left ovary measures 4.0 x 1.2 x 1.0 cm with multiple cysts measuring 0.2 to 1.0 cm in greatest dimension. The left adnexal tissue is hemorrhagic with a pale-baird cyst measuring 0.9 x 0.8 x 0.6 cm. The right fallopian tube with fimbria measures 4.0 cm in length x 0.5 to 0.7 cm in diameter. The ovary is yellow-baird and cerebriform and measures 2.3 x 2.0 x 0.6 cm. Weaver Hand sections are submitted as follows: C1, C2-anterior cervix, anterior CONCEPCIÓN, C3, C4-posterior cervix, posterior CONCEPCIÓN, V8-B80-dhfnwp pedunculated mass (C8, C9-mass to include the endometrium, bisected: C 12-mass to include the endometrium, bisected), J58-nfurjlwy endometrium (with white baird lesion), J20-yrdnphuz wall, subserosal mass, A75-xnktmcsyn wall myometrial mass, W11-Ughxzwybx tube, left, Q49-tlajq, left, Y15-pxjytw, left, T43-ythqpxwmk tube, right, W83-kwicd, right. After initial microscopic examination, the remaining endometrium is submitted as follows: C24-27- anterior endometrium entirely submitted, C28-C29 - posterior endometrium entirely submitted (5/5\ ML). AJ 09/26/2022 10:10 AM [facility] Microscopic Description Microscopic examination substantiates the above diagnosis. Multiple H&E levels and a pankeratin immunostain (controls adequate) were evaluated on parts A and B, per sentinel lymph node protocol, showing no evidence of metastatic carcinoma. 09/26/2022 10:10 AM [facility] Disclaimer All histochemical and/or immunohistochemical results are interpreted with controls that demonstrate appropriate staining reactions before reporting results. Note on use of immunocytochemistry reagents: This test was developed and its performance characteristic determined by [facility], Department of Laboratory Medicine. It has not been cleared or approved by the U.S. Food and Drug Administration (FDA). The FDA has determined that such clearance or approval is not necessary. The test is used for clinical purpose. It should not be regarded as investigational or for research. This laboratory is certified to perform high complexity testing. The performance characteristics of the IHC/PATRICIO assays have been validated on formalin-fixed paraffin embedded tissues only. The assays have not been validated on decalcified tissues. Results should be interpreted with caution. 09/26/2022 10:10 AM CDT [facility] Embedded Images 09/26/2022 10:10 AM CDT [facility] Pathology/Cytology SPECIMEN FROM SENTINEL LYMPH NODE / Unknown 09/21/2022 8:27 AM CDT 09/21/2022 10:33 AM CDT Comment:Pre-op diagnosis: Diagnosis unknown [R69] Miscellaneous samples (specimen) SPECIMEN FROM SENTINEL LYMPH NODE / Unknown 09/21/2022 8:46 AM CDT 09/21/2022 10:33 AM CDT Comment:Pre-op diagnosis: Diagnosis unknown [R69] Miscellaneous samples (specimen) HYSTERECTOMY AND BILATERAL SALPINGO-OOPHORECTO MY SPECIMEN / Unknown 09/21/2022 8:50 AM CDT 09/21/2022 10:33 AM CDT Comment:Pre-op diagnosis: Diagnosis unknown [R69] Joni Fair MD LAB - PATHOLOGY/CYTO LOGY ORDERABLES Performing Organization Address [facility]/State/[facility] Co de Phone Number [facility] [address] [place], [place] [id number] * ETT LINE PERFORMABLE (09/21/2022 8:17 AM CDT) Narrative Flaca Rice APRN-CRNA - 09/21/2022 8:17 AM CDT Flaca Rice APRN-CRNA ? 09/21/2022 ??8:19 AM Endotracheal Tube Placement: ? Patient Location: OR. Intubation Event Date/Time: ??09/21/2022 7:41 AM Procedure: intubation (21221). Procedure Section: ?? Sedation: under general anesthesia. Indications for Airway Management: ??anesthesia Procedure pretreatments used? ??No Induction: modified rapid sequence Patient Position: ??sniffing Mask Ventilation: not attempted. Blade Type: Video Blade Size: 3 Laryngoscopy View: grade 1 (full cords) Intubation Adjuncts: video laryngoscope and stylet Placement: oral Tube type: cuff - inflated Tube Size (MM): 7 Depth of Insertion (CM): 22 Measured From: teeth Cuff volume (mL): ??6 Cuff Inflated With: air Number of Attempts: 1. Placement Verified By: direct visualization, bilateral breath sounds, chest auscultation and CO2 monitor Dentition unchanged? ??Yes Difficult Airway? ??No (pt verbalized concern about neck pain with extension after intubation due to osteoarthritis . Glidescope used for patient concern and not airway difficulty.). Procedure Start Time: 09/21/2022 7:41 AM. Staff Section ? Anesthesia Provider: Flaca Rice APRN-MARYANNE, Performed the procedure Murphy Potts MD GENERAL ANESTHESIA ORDERABLES * CYTOLOGY NON-RATE AND COST ANALYST PANEL (STL) (09/21/2022 8:15 AM CDT) Case Report Cytology Non Sash Clamp Operator Report ? Case: [id number] ? Authorizing Provider: ??Joni Fair MD ? Collected: ? 09/21/2022 08:15 AM ? Ordering Location: ? [facility] ? Received: ?09/21/2022 10:37 AM ? Pathologist: ? Murphy Ruiz MD ? Specimen: ?Pelvic Washings ? 09/22/2022 10:15 AM CDT [facility] Final Diagnosis Pelvic wash - Reactive mesothelial cells and blood. - No evidence of malignancy. 09/22/2022 10:15 AM T [facility] Microscopic Description Microscopic confirms the diagnosis. 09/22/2022 10:15 AM T [facility] Disclaimer All histochemical and/or immunohistochemical results are interpreted with controls that demonstrate appropriate staining reactions before reporting results. Note on use of immunocytochemistry reagents: This test was developed and its performance characteristic determined by [facility], Department of Laboratory Medicine. It has not been cleared or approved by the U.S. Food and Drug Administration (FDA). The FDA has determined that such clearance or approval is not necessary. The test is used for clinical purpose. It should not be regarded as investigational or for research. This laboratory is certified to perform high complexity testing. The performance characteristics of the IHC/PATRICIO assays have been validated on formalin-fixed paraffin embedded tissues only. The assays have not been validated on decalcified tissues. Results should be interpreted with caution. 09/22/2022 10:15 AM CDT [facility] Embedded Images 09/22/2022 10:15 AM CDT [facility] Pathology/Cytolo gy SPECIMEN OBTAINED BY PERITONEAL LAVAGE / Unknown 09/21/2022 8:15 AM CDT 09/21/2022 10:37 AM CDT Comment:Pre-op diagnosis: Diagnosis unknown [R69] Joni Fair MD LAB - PATHOLOGY/CYTO LOGY ORDERABLES [facility] [address] [place], [place] [id number] * BLOOD TYPE VERIFICATION (09/21/2022 6:15 AM CDT) ABO Rh A POS 09/21/2022 6:5 4 AM CDT [facility] Blood Bank BLOOD SPECIMEN / Unknown Venipuncture / Unknown 09/21/2022 6:15 AM CDT 09/21/2022 6:26 AM CDT Murphy Potts MD LAB - BLOOD BANK O OMAR Performing Organization Address [facility] de Phone Number [facility] [address] [place] [address] * TYPE + SCREEN PANEL (09/21/2022 6:11 AM CDT) ABO Rh A POS 09/21/2022 6:44 AM CDT [facility] Comment:No history; collect retype. Antibody Screen NEG 6:44 AM CDT [facility] Blood Bank BLOOD SPECIMEN / Unknown Venipuncture / Unknown 09/21/2022 6:11 AM CDT 09/21/2022 6:13 AM CDT Murphy Potts MD LAB - BLOOD BANK O OMAR Performing Organization Address [facility] de Phone Number [facility] [address] [place] [place] [address] * (ABNORMAL) COMPREHENSIVE METABOLIC PANEL (09/21/2022 6:11 AM CDT) Pathologist [facility] Glucose 135(H) 70 - 105 mg/dL 09/21/2022 6:55 AM CDT [facility] Sodium 142 136 - 145 mmol/L 09/21/2022 6:55 AM CDT [facility] Potassium 3.8 3.5 - 5.1 mmol/L 09/21/2022 6:55 AM CDT [facility] Chloride 108(H) 98 - 107 mmol/L 09/21/2022 6:55 AM CDT [facility] CO2 23 23 - 31 mmol/L 09/21/2022 6:55 AM CDT [facility] Calcium 10.5(H) 8.4 - 10.4 mg/dL 09/21/2022 6:55 AM T [facility] Anion Gap 11 8 - 18 mmol/L 09/21/2022 6:55 AM CDT [facility] BUN 22(H) 9.8 - 20.1 mg/dL 09/21/2022 6:55 AM CDT [facility] Creatinine 1.34(H) 0.57 - 1.11 mg/dL 09/21/2022 6:55 AM T [facility] Alkaline Phosphatase 111 40 - 150 U/L 09/21/2022 6:55 AM CDT [facility] ALT 21 0 - 61 U/L 09/21/2022 6:55 AM CDT [facility] AST 20 5 - 34 U/L 09/21/2022 6:55 AM T [facility] Protein Total 7.3 6.4 - 8.3 gm/dL 09/21/2022 6:55 AM CDT [facility] Albumin 4.3 3.2 - 4.6 gm/dL 09/21/2022 6:55 AM T [facility] Bilirubin Total 0.7 0.2 - 1.2 mg/dL 09/21/2022 6:55 AM [facility] eGFR by CKD-EPI 42(L) >=90 mL/min/1.7 3 m2 09/21/2022 6:55 AM [facility] Blood BLOOD SPECIMEN / Unknown Venipuncture / Unknown 09/21/2022 6:11 AM CDT 09/21/2022 6:28 AM CDT Joni Fair MD LAB - CHEMISTRY [facility]ASMEEN [facility] Organization Address City/State/ZIP Co de Phone Number [facility] [address] [place] [address] * LAB RESULTS ORDER (09/14/2022) 09/14/2022 Narrative 09/14/2022 Ordered by an unspecified provider. Scanned Document LAB - THERAPEUTIC DR TREVIÑO MONITORING ORDERABLES Care Teams Foundry Process Engineer Relationship Specialty Start Date End Date Zhou Garcia DO [address] [place] [id number] PCP - General 08/05/22
--- OUTSIDE RECORDS SUMMARY | 2024-06-13 11:23 | XMS_ITS | Referral Summary ---
Author Organization [facility] Address [address] [place] [address] Care Team Providers Care Hat Steamer Name Role Phone Zhou Garcia Primary Care Provider + Source Comments [facility],non-owned Affiliates and Associated Physician Practices is amultiple site organization consisting of ambulatory clinics and hospital sitesin [place], [place], [place] and [place]. This disclosure is being madepursuant to the Care Everywhere program and may not contain all information available regarding this patient. Last updated 18.[facility] Vascular Therapies Allergies Active Allergy Reactions Criticality Noted Date Comments Latex Itching,Unknown 04/19/2018 Sores Sores Penicillins Urticaria,Rash Medium 04/19/2018 Penicillin allergy history form completed. Moderate risk Wasp Venom Protein Swelling Medium 05/08/2020 Medications * Be aware that medications may not be up to date on this document. Alwaysverify current medications with the patient. Medication Sig Dispensed Refills Start Date End Date Status albuterol HFA (Proventil; Ventolin; Proair) 108 (90 Base) MCG/ACT inhaler 08/13/2022 Active amLODIPine (Norvasc) 10 MG tablet Take 1 (one) tablet by mouth once daily 06/03/2022 Active aspirin EC (Ecotrin) 81 MG tablet Take 1 (one) tablet by mouth once daily Active benazepril (Lotensin) 40 MG tablet 1 tablet Orally Once a day for 30 day(s) 07/18/2022 Active Biotin w/ Vitamins C & E (Hair Skin & Nails Gummies) 1250-7.5-7.5 MCG-MG-UNT CHEW Take by mouth at bedtime 10/08/2021 Active Blood Glucose Monitoring Suppl (ONE TOUCH ULTRA 2) w/Device KIT Use to check blood glucose daily for Diabetes. 11/05/2021 Active furosemide (Lasix) 40 MG tablet Take 1 (one) tablet by mouth once daily 07/18/2022 Active Lancets (ONETOUCH DELICA PLUS 33G EXTRA FINE LANCET) USE 1 TO CHECK GLUCOSE ONCE DAILY 11/05/2021 Active metFORMIN ER 24hr (Glucophage XR) 500 MG tablet TAKE 2 TABLETS BY MOUTH ONCE DAILY WITH BREAKFAST 08/01/2022 Active simvastatin (Zocor) 40 MG tablet TAKE 1 TABLET BY MOUTH NIGHTLY AT BEDTIME 01/20/2022 Active vitamin E (Tocopheryl) 200 UNIT capsule Take 1 (one) capsule by mouth at bedtime 10/22/2021 Active Multiple Vitamins-Minerals (CENTRUM SILVER 50+WOMEN PO) Take by mouth once daily Active Probiotic Product (PROBIOTIC GUMMIES PO) Take by mouth once daily Active Specialty Vitamins Products (BRAIN PO) Take 300 mg by mouth once daily Active ibuprofen (Motrin) 600 MG tablet Take 1 (one) tablet by mouth every 6 hours as needed for Pain 40 tablet 09/21/2022 Active oxyCODONE, immediate release, (Roxicodone) 5 MG tabletIndications:En dometrial carcinoma (HCC) Take 1 (one) tablet by mouth every 4 hours as needed for Pain 15 tablet 09/21/2022 Active ondansetron, disintegrating, (Zofran ODT) 4 MG tablet Take 1 (one) tablet by mouth every 6 hours as needed for Nausea/Vomiting Allow tablet to dissolve on the tongue 10 tablet 09/21/2022 Active senna (Senokot) 8.6 MG tablet Take 2 (two) tablets by mouth once daily 30 tablet 09/21/2022 Active nystatin (Mycostatin) 557982 UNIT/GM powder Apply to affected area 2 times daily 60 g 10/06/2022 Active fluconazole (Diflucan) 150 MG tablet Take 1 tablet now and repeat in 72 hours 2 tablet 1 10/06/2022 Active Active Problems Problem Noted Date Diagnosed Date [...] failure syndrome 04/23/2019 Hyperlipidemia 04/23/2019 Dysphagia 01/06/2019 Overview (08/25/2022): Added automatically from request for surgery [id number] Added automatically from request for surgery [id number] Added automatically from request for surgery [id number] Essential (primary) hypertension 05/03/2018 Social History Tobacco [...] Mass Index 36.11 09/21/2022 6:03 AM CDT Plan of Treatment Not on file Procedures Procedure Name Priority Date/Time Associated Diagnosis Comments COMPREHENSIVE METABOLIC PANEL Pre-Op 09/21/2022 6:11 AM CDT Preop examination from Last 3 Months or Most Recently Relevant to Health Maintenance Results * (ABNORMAL) COMPREHENSIVE METABOLIC PANEL (09/21/2022 6:11 AM CDT) Glucose 135(H) 70 - 105 mg/dL 09/21/2022 6:55 AM CDT [facility] Sodium 142 136 - 145 mmol/L 09/21/2022 6:55 AM CDT [facility] Potassium 3.8 3.5 - 5.1 mmol/L 09/21/2022 6:55 AM CDT [facility] Chloride 108(H) 98 - 107 mmol/L 09/21/2022 6:55 AM CDT [facility] CO2 23 23 - 31 mmol/L 09/21/2022 6:55 AM CDT [facility] Calcium 10.5(H) 8.4 - 10.4 mg/dL 09/21/2022 6:55 AM CDT [facility] Anion Gap 11 8 - 18 mmol/L 09/21/2022 6:55 AM CDT [facility] BUN 22(H) 9.8 - 20.1 mg/dL 09/21/2022 6:55 AM CDT [facility] Creatinine 1.34(H) 0.57 - 1.11 mg/dL 09/21/2022 6:55 AM CDT [facility] Alkaline Phosphatase 111 40 - 150 U/L 09/21/2022 6:55 AM CDT [facility] ALT 21 0 - 61 U/L 09/21/2022 6:55 AM CDT [facility] AST 20 5 - 34 U/L 09/21/2022 6:55 AM CDT [facility] Protein Total 7.3 6.4 - 8.3 gm/dL 09/21/2022 6:55 AM CDT [facility] Albumin 4.3 3.2 - 4.6 gm/dL 09/21/2022 6:55 AM CDT [facility] Bilirubin Total 0.7 0.2 - 1.2 mg/dL 09/21/2022 6:55 AM CDT [facility] eGFR by CKD-EPI 42(L) >=90 mL/min/1.7 3 m2 09/21/2022 6:55 AM CDT [facility] Blood BLOOD SPECIMEN / Unknown Venipuncture / Unknown 09/21/2022 6:11 AM CDT 09/21/2022 6:28 AM CDT Joni Fair MD LAB - CHEMISTRY [facility] Performing Organization Address City/State/[facility] Co de Phone Number [facility] [address] [place] [address] from Last 3 Months or Most Recently Relevant to Health Maintenance Care Teams Hat Steamer Relationship Specialty Start Date End Date Zhou Garcia DO [facility] [place] [address] PCP - General 08/05/22
--- OUTSIDE RECORDS SUMMARY | 2024-06-13 11:23 | XMS_ITS | Encounter Summary ---
Author Organization [facility] Address [address] [facility] 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 Hard 08/10/2022 PHQ-2 Answer Date Recorded Patient Health Questionnaire-2 Score 2 05/23/2023 Hunger Vital Sign Answer Date Recorded Within the past 12 months, y ou worried that your food would run out before you got the money to buy more. Never true 08/11/19 23 Within the past 12 months, t he food you bought just didn't last and you didn't have money to get more. Never true 08/10/2022 PRAPARE - Transportation Answer Date Re corded In the past 12 months, has l ack of transportation kept you from medical appointments or from getting medications? No 07/21 In the past 12 months, has l ack of transportation kept you from meetings, work, or from getting things needed for daily living? No 08/10/2022 Housing Stability Vital Sign Answer Jacoby e Recorded In the last 12 months, was t here a time when you were not able to pay the mortgage or rent on time? No 08/10/2022 In the last 12 months, how many places have you lived? 1 08/10/2022 In the last 12 months, was t here a time when you did not have a steady place to sleep or slept in a snf (including now)? 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 Family & Internal Medicine [address] [phone] Zhou Garcia DO [address] [place] [address] documented as of this encounter Goals Goal Patient Goal Type Associated Problems Recent Progress Patient-Stated? Author Establish Regular Follow-Ups with PCP General On track(2024 2:46 PM NETWORK CABLE INSTALLER) Shiela Moser, JAREK Note: 04/24/24: Scheduled to see PCP on 05/20/24. Encouraged to call before that time if needed. 03/14/24: Confirmed appointment with PCP on 03/19/24 at 10:40 am. Reduce Blood Pressure General On track(2024 2:46 PM NETWORK CABLE INSTALLER) Shiela Moser, RN Note: Patient will monitor B/P several times per week if able and report to physician or CC if B/P consistently >140/90 Patient will maintain a low sodium diet . Patient will call provider with any CP, SOB, visual disturbances, headaches, lightheadedness, dizziness. Patient to take all medications as prescribed. Establish Plan for Symptom Monitoring- COPD General On track(2024 2:45 PM NETWORK CABLE INSTALLER) Shiela Moser RN Note: Patient will recognize symptoms of COPD exacerbation and report to the physician. If severe, patient will seek emergent treatment at [facility] or ER. Notify your provider if you have any of the following symptoms: More breathless than usual Using quick relief inhaler more often than usual Less energy than usual Increased coughing, thicker phlegm/mucus Increased swelling in ankles Poor sleep due to waking up at night with symptoms Medication is not helping Appetite is poor Follow up with your provider as scheduled Take your medications as prescribed Do not stop any of your medications without notifying provider. Establish Plan for Symptom Monitoring- DM General On track(2024 2:45 PM NETWORK CABLE INSTALLER) Shiela Moser RN Note: Patient will manage diabetes and report any symptoms of hypo/hyperglycemia to provider. Patient to follow diabetic medication regimen. Patient will maintain a carb consistent diet and avoid concentrated sweets. Patient will monitor blood sugar readings at least twice a day and call provider with consistent readings <80 and >200. If symptoms of excessive hunger, blurred vision, shakiness, light headedness, anxiety present, check blood sugar if able or treat the hypoglycemia. If glucose is less than 70, take 15 grams of glucose that is half a cup of juice or milk or regular soda or 3 glucose tablets and recheck in 15 minutes. Patient will take medications as prescribed. Patient will follow up with provider as scheduled. Establish Plan for Regular Lab Work Lifestyle On track(2024 2:46 PM NETWORK CABLE INSTALLER) Shiela Moser, JAREK Note: 04/24/24: Due for calcium urine 24 hour. She will have done at [facility]. Sent message to [place] to get lab ordered faxed to [facility] [place] out patient lab. Per patient's request. 04/09/24: Lab work completed on 03/19/24. documented as of this encounter Visit Diagnoses Not on filedocumented in this encounter Additional Health Concerns Assessment Noted Time PHQ-9 Depression Total Score: 16 023 11:55 AM CDT documented as of this encounter Care Teams Aquatic Habitat Biologist Relationship Specialty Start Date End Date Zhou Garcia DO [address] [place] [id number] PCP - General FAMILY PRACTICE 04/18/18 Shiela Reyes, RN [address] [place] [address] Disc Ruler Operator (Ambulatory) REGISTERED NURSE 05/11/20 documented as of this encounter
--- OUTSIDE RECORDS SUMMARY | 2024-06-13 11:23 | XMS_ITS | Clinical Summary ---
Author Organization [facility] Address [facility] [place] [address] [place] [address] Care Team Providers Care Controls Designer Name Role Phone Zhou Garcia Jessica JJ Primary Care Provider + Shiela Reyes RN Unavailable [phone] Allergies Active Allergy Reactions Criticality Noted Date Comments Amlodipine Other (see comment),Unknown 07/12/2022 Bee Venom Swelling 12/21/2020 Dapagliflozin Other (see comment) 09/29/2023 Fatigue, depression, GI upset Latex Other (see comment),Unknown 04/19/2018 Sores Milk (Cow) Vomiting Low 05/08/2020 Penicillins Rash Low 04/19/2018 Potassium Chloride Other (see comment),Unknown 04/19/2018 [place] and rash [place] and rash with IV. 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 Active Multiple Vitamins-Minerals (CENTRUM SILVER 50+WOMEN OR) Active Vitamin E 200 UNITS capsule Take 1 capsule (200 Units total) by mouth. 022 Active albuterol sulfate HFA 108 (90 Base) MCG/ACT inhalerIndication s:Pulmonary emphysema, unspecified emphysema type ([facility]) Inhale 2 puffs into the lungs every 6 (six) hours as needed for Wheezing or Shortness of breath. 18 g 2 023 Active Additional Information Patient not taking.Reported on 05/20/2024 COMPRESSION STOCKINGS Active clobetasol (TEMOVATE) 0.05 % creamIndications: Prurigo nodularis Apply topically nightly. Apply with adhesive bandage nightly. 45 g 024 Active Blood Glucose Monitoring Suppl (ONE TOUCH ULTRA 2) w/Device KitIndications:Ty pe 2 diabetes mellitus with stage 2 chronic kidney disease, without long-term current use of insulin ([facility]) Use to monitor blood 3 times per day 1 kit Active Additional Information Patient not taking.Reported on 05/20/2024 OneTouch Delica Lancets 33G MiscIndications:T ype 2 diabetes mellitus with stage 2 chronic kidney disease, without long-term current use of insulin ([facility]) Use to monitor blood sugar 3 times per day 100 each 3 024 Active Additional Information Patient not taking.Reported on 05/20/2024 Glucose Blood test stripIndications: Type 2 diabetes mellitus with stage 2 chronic kidney disease, without long-term current use of insulin ([facility]) Use 1 strip to test blood sugar 3 times per day 300 strip 3 Active Additional Information Patient not taking.Reported on 05/20/2024 umeclidinium-rohini nterol (ANORO ELLIPTA) 62.5-25 MCG/ACT inhalerIndication s:Chronic obstructive pulmonary disease, unspecified COPD type ([facility]) Inhale 1 puff into the lungs daily. 60 each 2 024 Active Additional Information Patient not taking.Reported on 05/20/2024 furosemide (LASIX) 20 MG tabletIndications :Essential (primary) hypertension Take 1 tablet (20 mg total) by mouth daily. 90 tablet 1 024 Active Additional Information Patient not taking.Reported on 05/20/2024 simvastatin (ZOCOR) 40 MG tabletIndications :Hyperlipidemia, unspecified hyperlipidemia type take 1 tablet by mouth nightly at bedtime 90 tablet 024 Active nystatin (MYCOSTATIN) powderIndications :Fungal rash of torso Apply topically 3 (three) times daily. 60 g 3 024 Active benazepril (LOTENSIN) 40 MG tabletIndications :Essential hypertension Take 1 tablet (40 mg total) by mouth daily. 30 tablet 2 024 Active metFORMIN ER (GLUCOPHAGE-XR) 500 MG 24 hr tabletIndications :Type 2 diabetes mellitus without complication, without long-term current use of insulin ([facility]) TAKE 2 TABLETS BY MOUTH ONCE DAILY WITH BREAKFAST 180 tablet Active doxycycline hyclate (VIBRA-TABS) 100 MG tablet 024 Active tacrolimus (PROTOPIC) 0.03 % ointmentIndicatio ns:Prurigo nodularis Apply topically 2 (two) times daily. Do not use for more than 4 weeks, apply to area on lower back 30 g 024 Active NIFEdipine ER (ADALAT CC) 60 MG 24 hr tabletIndications :Essential hypertension Take 1 tablet (60 mg total) by mouth daily. 30 tablet 2 024 Active desonide (DESOWEN) 0.05 % Ointment ointmentIndicatio ns:Prurigo nodularis Apply topically 2 (two) times daily. Apply for no more than 4 weeks continuously 60 g 025 Active ciprofloxacin-dex amethasone (CIPRODEX) otic suspensionIndicat ions:Otitis media INSTILL 4 DROPS INTO LEFT EAR TWICE DAILY FOR 10 DAYS 8 mL 024 2023 Discontinued(T herapy completed) HYDROcodone-aceta minophen (NORCO) 5-325 MG tabletIndications :Acute Pain < 7 Day Supply Take 1 tablet by mouth every 6 (six) hours as needed for Pain. Indications: Acute Pain < 7 Day Supply 28 tablet 024 2023 Discontinued(T herapy completed) metFORMIN ER (GLUCOPHAGE-XR) 500 MG 24 hr tabletIndications :Type 2 diabetes mellitus without complication, without long-term current use of insulin ([facility]) Take 2 tablets (1,000 mg total) by mouth daily with breakfast. 180 tablet 024 2023 Discontinued amLODIPine (NORVASC) 10 MG tabletIndications :Hypertension Take 1 tablet (10 mg total) by mouth daily. 90 tablet 024 2023 Discontinued(S elder effects) Active Problems Problem Noted Date Diagnosed Date Secondary hyperparathyroidism ([facility]) 05/20/2024 Closed fracture of right wri st with routine healing, subsequent encounter 01/05/2024 Fungal rash of torso 12/14/2023 Current moderate episode of major depressive disorder without prior episode ([facility]) 07/04/2023 Type 2 diabetes mellitus wit h diabetic peripheral angiopathy without gangrene, without long-term current use of insulin ([facility]) 07/04/2023 Chronic heart failure with p reserved ejection fraction ([facility]) 07/04/2023 Onychomycosis of toenail 04/24/2023 Endometrial hyperplasia with atypia 08/03/2022 H/O prosthetic aortic valve replacement 01/28/20 Stage 3 chronic kidney disea se, unspecified whether stage 3a or 3b CKD ([facility]) 12/14/2021 Care Management 11/03/2021 Achalasia 08/03/2021 Overview (10/14/2021): Added automatically from request for surgery [id number] Superficial foreign body of toe 04/22/2021 Alcoholic cirrhosis of liver without ascites ([facility]) 04/20/2021 Bradycardia 04/20/2021 Elevated LFTs 04/20/2021 Elevated troponin 04/20/2021 Hereditary and idiopathic neuropathy, unspecifie d 04/20/2021 Leukocytosis 04/20/2021 Noncompliance 04/20/2021 Presbyesophagus 04/20/2021 Primary hypersomnia 04/20/2021 Pulmonary hypertension ([facility]) 021 Sleep apnea 04/20/2021 Strain of cervical portion of trapezius muscle 1 06/20/2020 Strain, lumbosacral, chronic or old 04/20/2021 Suspected 2019 novel coronavirus infection 04/20 GERD (gastroesophageal reflux disease) Nonrheumatic aortic (valve) stenosis 04/20/2021 Type 2 diabetes mellitus wit h microalbuminuria, without long-term current use of insulin ([facility]) 04/20/2021 Nonrheumatic aortic (valve) stenosis 08/07/2020 Pacemaker lead malfunction 06/26/2020 Overview (07/15/2020): Added automatically from request for surgery [id number] Heart block 06/17/2020 Tobacco dependence syndrome 05/25/2020 S/P placement of cardiac pacemaker 05/25/2020 Atrioventricular block, complete ([facility] HHS/HC C) 05/08/2020 Chronic obstructive pulmonary disease ([facility] H HS/[facility]) 05/08/2020 Hypercalcemia 05/08/2020 Presence of cardiac pacemaker 05/08/2020 Gastro-esophageal reflux disease with esophagiti s 02/23/2020 Adenoma of colon 02/23/2020 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 09/2019 Severe aortic stenosis 09/24/2019 Overview (07/15/2020): Added automatically from request for surgery [id number] Added automatically from request for surgery [id number] Rosacea 06/09/2019 Type 2 diabetes mellitus wit hout complication, without long-term current use of insulin ([facility]) 04/23/2019 Hyperlipidemia 04/23/2019 Dysphagia 01/06/2019 Overview (04/20/2021): Added automatically from request for surgery [id number] Heart murmur 01/06/2019 Tobacco use disorder 01/06/2019 Esophageal dysphagia 01/06/2019 Overview (10/14/2021): Added automatically from request for surgery [id number] Medical non-compliance 11/27/2018 Essential (primary) hypertension 05/03/2018 TIA (transient ischemic attack) 05/03/2018 Resolved Problems Problem Noted Date Diagnosed Date Resolved Date Secondary hyperaldosteronism ([facility]) 07/04/2023 09/29/2023 Thrombocytopenia, unspecified 07/04/2023 07/04/2023 Osteoporosis 08/25/2022 01/05/2024 Morbid (severe) obesity due to excess calories ([facility]) 08/03/2022 07/04/2023 Endometrial carcinoma ([facility]) 08/01/2022 07/04/2023 Benign hypertension with sta ge 3b chronic kidney disease ([facility]) 12/22/2021 024 Colon cancer screening 04/20/202104/26 Irregular heart beat 01/06/2019 021 Encounters Date Type Department Care Team Description 06/05/2024 Patient Outreach [facility] Internal [address] [phone] Shiela Reyes RN Care Management 05/28/2024 Scan [employer] jobs SRVCS Scanned, [facility] 05/23/2024 Telephone [facility] [address] [phone] Zhou Garcia, Prior Authorization (Tacrolimus 0.03% ointment) 05/20/2024 3:00 PM DETACHER Office Visit [facility] [address] [phone] Zhou Garcia P, DO Lab Results (Follow-up on 24-hour urine test) 05/20/2024 Travel 05/09/2024 Scan [employer] jobs SRVCS Scanned, [facility] Lab (SCAN) 05/08/2024 Patient Outreach [facility] [address] [phone] Fernando Cesar CPhT Medication (Simvastatin Medication Adherence Review) 04/30/2024 Patient Outreach [facility] [address] [address] Arsenio, Fernando R, automotive brake technician Medication (Benazepril Medication Adherence review) 04/26/2024 Patient Outreach [facility] [id number] [place] [address] Gwen Palomino, HAM CLERK 04/24/[address] [phone] Zhou Garcia, DO Follow Up Call 04/24/2024 Patient Outreach [address] [phone] Shiela Reyes, RN Care Management 04/09/2024 Patient Outreach [address] [address] Shiela Reyes, RN Care Management 04/09/[address] [phone] Zhou Garcia, DO Results 04/04/2024 Patient Outreach [address] [address] Shiela Reyes, RN Care Management 03/30/2024 Scan [employer] INFO SRVCS Scanned, [facility] 03/19/2024 10:40 AM CDT Office Visit [address] [phone] Zhou Garcia, DO Osteoporosis (The patients to discuss osteoporosis.); Xray/ultrasound Order (The patient wants to discuss XR. ) 03/19/2024 - 03/19/2024 11:59 PM CDT [facility] [address] [place] [address] Zhou Garcia, DO Discharge Disposition: Home or Self Care (Routine Discharge) 03/19/[address] [phone] Zhou Garcia DO Radiology Results 03/19/2024 Travel 03/18/2024 Telephone [facility] Family & Internal Medicine - [address] [phone] Zhou Garcia DO Referral from Last 3 Months Immunizations Name Administration Dates Next Due Fluad influenza vaccine, Rinku drivalent (aIIV4), Inactivated, adjuvanted, preservative free, 0.5 mL,IM use 01/03/2024 Fluzone 6 Months+ Quad (0.5 mL Prefilled Syringe) 04/05/2019 Fluzone High Dose - >Age 65 (Prefilled Syringe) 03/24/2022,03/25/2021,01/31/2020,2016 Influenza (Generic) 04/21/2020, 7,01/18/2016,2011 Influenza Adult (Generic) 02/15/2023,08/2020,03/08/2018,2016 MODERNA COVID-19 (12+) MRNA, LNP-S, PF, 100 MCG/ 0.5 ML DOSE 09/09/2020,08/12/2020 MODERNA COVID-19 (SPEECH THERAPY ASSISTANT RANDAL JOSSELYN), MRNA, LNP-S, PF, 50 MCG/ 0.25 ML DOSE 05/27/2021 PFIZER COVID-19 (12+) MRNA, LNP-S, PF, PALLAVI-SUCROSE, 30 MCG/0.3 ML (COMIRNATY) 03/19/2024 Pneumococcal (Pneumovax 23) 10/14/2021, 2 Pneumococcal (Prevnar 13) 06/25/2015 RSV VACCINE, UNSPECIFIED 01/03/2024 Shingrix 04/25/2022,01/04/2022 Td 07/07/2004 Tdap (Boostrix) 05/08/2019 Tdap (Generic) 06/25/2015 Family History Medical History Relation Comments Heart Brother Hypertension Brother Lung Disease Brother Heart Father Hypertension Father Cancer Maternal Grandfather Dementia Maternal Grandmother Sickle Cell Trait Other Cancer Paternal Grandfather Dementia Paternal Grandmother Relation Status Comments Brother Father Maternal Grandfather Maternal Grandmother Other Alive Paternal Grandfather Paternal Grandmother Social History Tobacco Use Types Packs/Day Years Used Date Smoking Tobacco: Every Day Cigarettes 1 55 Passive Smoke Exposure: Current Smokeless Tobacco: Never Tobacco Cessation:Ready to Q uit: Yes; Counseling Given: Yes Comments:provider to personnel counselor Alcohol Use Standard Drinks/Week Comments No [...] place to sleep or slept in a [place] facility (including now)? No 08/10/2022 Comments No Sex and Gender Information Value Date Recorded Sex Assigned at Not on file Legal Sex Female 5:03 PM DETACHER Gender Identity Not on file Sexual Orientation Not on file Last Filed Vital Signs Vital Sign Reading Time Taken Comments Blood Pressure 136/78 05/20/2024 3:25 PM DETACHER Pulse 67 05/20/2024 3:25 PM DETACHER Temperature 36.7 ??C (98 ??F) 05/20/2024 3:25 PM DETACHER Respiratory Rate 16 05/20/2024 3:25 PM DETACHER Oxygen Saturation 97% 05/20/2024 3:25 PM DETACHER Inhaled Oxygen Concentration - - Weight 94.1 kg (207 lb 6.4 oz) 05/20/2024 3:25 P M DETACHER Height 166.4 cm (5' 5.5 ) 05/20/2024 3:25 PM DETACHER Body Mass Index 33.99 05/20/2024 3:25 PM DETACHER Plan of Treatment Upcoming Encounters Date Type Department Care Team (Late st Contact Info) Description 07/18/2024 9:20 AM DETACHER Office Visit [facility] Family & Internal Medicine [phone] [place] [address] Zhou Garcia, [address] [place] [address] Health Maintenance Due Date Last Done Comments Annual Medicare Wellness Visit 09/24/2021 2020 Diabetes: Retinopathy Eye Exam 03/28/2023 03/28/2022 Mammogram Screening 07/05/2023 07/05/2022 COVID-19 Vaccine ( season) 2024 03/19/2024, 05/18/2023, 05/27/2021, Additional history exists PHQ-2 (Physician [place]) 05/23/2024 05/23/2023 Kidney Health Evaluation 06/27/2024 06/27/2023 Hemoglobin A1C 09/17/2024 03/19/2024, 02/1 07/2023, 01/17/2023, Additional history exists Colorectal Cancer Screening Colonoscopy (10 Years) 01/27/2025 01/28/2020 Lipid Panel 03/19/2025 03/19/2024, 02/0 10/2023, 05/16/2023, Additional history exists DTaP, Tdap and Td Vaccines (3 - Td or Tdap) 05/08/2029 05/08/2019, 06/25/2015, 07/07/2004 Pneumococcal Vaccine: 65+ Years Completed 10/14/2021, 06/25/2015, 04/19/2012 Hepatitis C Completed 11/08/2021 Zoster Vaccines Completed 04/25/2022, 01/04/2022 Dexa Scan (General) Completed 07/05/2022 Influenza Adult Completed 01/03/2024, 01/21, 03/24/2022, Additional history exists RSV Immunization or 60+ Years Completed 01/03/2024 Meningococcal B Vaccine Aged Out No l onger eligible based on patient's age to complete this topic Meningococcal Vaccine Aged Out No navid darryl eligible based on patient's age to complete this topic RSV Immunizations Under 20 Months Aged Out No longer eligible based on patient's age to complete this topic Goals Goal Patient Goal Type Associated Problems Recent Progress Patient-Stated? Author Establish Regular Follow-Ups with PCP General On track(2024 2:46 PM DETACHER) Shiela Moser RN Note: 04/24/24: Scheduled to see PCP on 05/20/24. Encouraged to call before that time if needed. 03/14/24: Confirmed appointment with PCP on 03/19/24 at 10:40 am. Reduce Blood Pressure General On track(2024 2:46 PM DETACHER) Shiela Moser RN Note: Patient will monitor B/P several times per week if able and report to physician or CC if B/P consistently >140/90 Patient will maintain a low sodium diet . Patient will call provider with any CP, SOB, visual disturbances, headaches, lightheadedness, dizziness. Patient to take all medications as prescribed. Establish Plan for Symptom Monitoring- COPD General On track(2024 2:45 PM DETACHER) Shiela Moser RN Note: Patient will recognize [...] Monitoring- DM General On track(2024 2:45 PM DETACHER) Shiela Moser, RN Note: Patient will manage diabetes and [...] Lab Work Lifestyle On track(2024 2:46 PM DETACHER) Shiela Moser, JAREK Note: 04/24/24: Due for calcium urine 24 hour. She will have done at [facility]. [place] message to [place] to get lab ordered faxed to [facility] patient lab. Per patient's request. 04/09/24: Lab work completed on 03/19/24. Procedures Procedure Name Priority Date/Time Associated Diagnosis Comments OUTSIDE LAB (SCAN ORDER) 05/09/2024 CBC W/DIFF AUTOMATED Routine 03/19/2024 12:30 PM CDT Type 2 diabetes mellitus with other circulatory complication, without long-term current use of insulin ([facility] HHS/HCC) Hypertension associated with type 2 diabetes mellitus ([facility] HHS/HCC) Hyperlipidemia associated with type 2 diabetes mellitus ([facility]/HCC) COMPREHENSIVE METABOLIC PANEL Routine 03/19/2024 12:30 PM CDT Type 2 diabetes mellitus with other circulatory complication, without long-term current use of insulin ([facility] H[facility]/HCC) Hypertension associated with type 2 diabetes mellitus ([facility] H[facility]/HCC) Hyperlipidemia associated with type 2 diabetes mellitus ([facility]/HCC) TSH W/REFLEX Routine 03/19/2024 12:30 PM CDT Type 2 diabetes mellitus with other circulatory complication, without long-term current use of insulin ([facility] HHS/HCC) Hypertension associated with type 2 diabetes mellitus ([facility]/HCC) Hyperlipidemia associated with type 2 diabetes mellitus ([facility] HHS/HCC) LIPID PANEL Routine 03/19/2024 12:30 PM CDT Type 2 diabetes mellitus with other circulatory complication, without long-term current use of insulin ([facility] HHS/HCC) Hypertension associated with type 2 diabetes mellitus ([facility]/HCC) Hyperlipidemia associated with type 2 diabetes mellitus ([facility] HHS/HCC) PTH - INTACT Routine 03/19/2024 12:30 PM CDT Serum calcium elevated VITAMIN D, 25 OH Routine 03/19/2024 12:3 0 PM CDT Serum calcium elevated COLLECTION VENOUS BLOOD VENIPUNCTURE Routine 03/19/2024 11:35 AM CDT Type 2 diabetes mellitus with other circulatory complication, without long-term current use of insulin ([facility]HCC) Hypertension associated with type 2 diabetes mellitus ([facility] H[facility]/HCC) Hyperlipidemia associated with type 2 diabetes mellitus ([facility] HHS/HCC) URINE BACTERIA CULTURE Routine 03/19/2024 11:18 AM CDT Urinary incontinence, unspecified type COLLECT.CAPILLARY (FNGR,HEEL,EAR) Routine 03/19/2024 10:59 AM CDT Type 2 diabetes mellitus with other circulatory complication, without long-term current use of insulin ([facility] HHS/HCC) URINALYSIS AUTO DIP Routine 03/19/2024 Urinary incontinence, unspecified type HEMOGLOBIN, GLYCOSYLATED Routine 03/19/2024 Type 2 diabetes mellitus with other circulatory complication, without long-term current use of insulin ([facility] HHS/HCC) BONE DENSITY/DEXA Routine 07/05/2022 12: 00 AM DETACHER Tobacco use disorder Unspecified menopausal and perimenopausal disorder MG SCREENING W EMILY LARISSA DIGI Routine 07/05/2022 12:00 AM DETACHER Encounter for screening mammogram for malignant neoplasm of breast DIABETIC RETINOPATHY EXAM (NEGATIVE)(SCAN ORDER) Routine 03/28/2022 HEPATITIS C ANTIBODY Routine 11/08/2021 2:01 PM CDT Need for hepatitis C screening test COLONOSCOPY GENERIC (SCAN ORDER) 01/28/2020 from Last 3 Months or Most Recently Relevant to Health Maintenance Results * OUTSIDE LAB (SCAN ORDER) (05/09/2024) 05/09/2024 [facility] Scanned SCANNING Final Resu lt * TSH W/REFLEX (03/19/2024 12:30 PM CDT) TSH 1.243 0.358 - 3.740 uIU/ML 03/20/2024 11:22 AM CDT [facility] 03/19/2024 12:3 0 PM CDT Zhou Garcia DO LABORATORY Final Re sult [facility] [address] [place] [address], * (ABNORMAL) PTH - INTACT (03/19/2024 12:30 PM CDT) PTH 131.3(H) 18.4 - 80.1 PG/ML 03/19/2024 9:19 PM CDT [facility] Comment: ASSAY PERFORMED BY CHEMILUMINESCENCE METHODOLOGY USING [employer]EM[employer] CENTAUR XPT REAGENT. PATIENT RESULTS DETERMINED BY ASSAYS USING DIFFERENT MANUFACTURERS FOR METHODS MAY NOT BE COMPARABLE. 03/19/2024 12:3 0 PM CDT Zhou Garcia DO LABORATORY Final Re sult [facility] [address] [place] [address], [id number] * (ABNORMAL) COMPREHENSIVE METABOLIC PANEL (03/19/2024 12:30 PM CDT) [facility] SODIUM S/P/B 142 136 - 145 MMOL/L 03/20/2024 11:22 AM CDT [facility] POTASSIUM S/P/B 3.7 3.5 - 5.1 MMOL/L 03/20/2024 11:22 AM CDT [facility] CHLORIDE S/P/B 106 98 - 107 MMOL/L 03/20/2024 11:22 AM CDT [facility] CO2 29.3 21 - 32 MMOL/L 03/20/2024 11:31 AM CDT [facility] GLUCOSE 84 70 - 99 MG/DL 03/20/2024 11:22 AM CDT [facility] BUN 19(H) 7 - 18 MG/DL 03/20/2024 11:22 AM CDT [facility] CREATININE S/P/B 1.15(H) 0.55 - 1.02 MG/DL 03/20/2024 11:22 AM CDT [facility] CALCIUM S/P/B 10.4 8.4 - 10.5 MG/DL 03/20/2024 11:22 AM CDT [facility] BILIRUBIN TOTAL S/P/B 0.6 0.2 - 1.0 MG/DL 03/20/2024 11:22 AM CDT [facility] ALKALINE PHOSPHATASE S/P/B 107 55 - 142 U/L 03/20/2024 11:22 AM CDT [facility] AST 17 15 - 37 U/L 03/20/2024 11:22 AM CDT [facility] [place] [place] ALT 23 14 - 59 U/L 03/20/2024 11:22 AM CDT [facility] TOTAL PROTEIN S/P/B 7.3 6.4 - 8.2 G/DL 03/20/2024 11:22 AM CDT [facility] ALBUMIN S/P/B 4.1 3.4 - 5.0 G/DL 03/20/2024 11:22 AM CDT [facility] ANION GAP 6.7 5 - 15 MMOL/L 03/20/2024 11:31 AM CDT [facility] Comment:REFERENCE RANGE NOT ESTABLISHED OSMOLALITY (CALC) 295 MOSM/KG 024 11:22 AM T [facility] Comment:REFERENCE RANGE NOT ESTABLISHED GFR ESTIMATE 50(L) >90 ML/MIN/1. 73 M2 03/20/2024 11:22 AM T [facility] GFR NOTES GFR REFERENCE S: 03/20/2024 11:22 AM CDT [facility] Comment: THE ESTIMATED GFR IS CALCULATED USING THE 2020 CKD-EPI EQUATION. THE FOLLOWING CATEGORIES FOR GRADING RENAL FUNCTION ARE RECOMMENDED BY THE INTERNATIONAL SOCIETY OF NEPHROLOGY (KDIGO 2012 CLINICAL PRACTICE GUIDELINE). G1,NORMAL OR HIGH: >89 ml/min/1.73 m2 G2,MILDLY DECREASED: 60-89 ml/min/1.73 m2 G3A,MILDLY TO MODERATELY DECREASED: 45-59 ml/min/1.73 m2 G3B,MODERATELY TO SEVERELY DECREASED: 30-44 ml/min/1.73 m2 G4,SEVERELY DECREASED: 15-29 ml/min/1.73 m2 G5,KIDNEY FAILURE: <15 ml/min/1.73 m2 03/19/2024 12:3 0 PM CDT us Zhou Garcia DO LABORATORY Final Re sult [facility] [address] [place] [address], [place] [phone] * LIPID PANEL (03/19/2024 12:30 PM CDT) CHOLESTEROL 141 <200 MG/DL 03/20/2024 11:22 AM CDT [facility] TRIGLYCERIDES 140 <150 MG/DL 03/20/2024 11:22 AM CDT [facility] HDL 51 >40 MG/DL 03/20/2024 11:22 AM CDT [facility] LDL-C 62 <100 MG/DL 03/20/2024 11:22 AM CDT [facility] VLDL CALCULATION 28 5 - 28 MG/DL 03/20/2024 11:22 AM CDT [facility] CHOL/HDL RATIO 2.8 0.0 - 4.0 03/20/2024 11:22 AM CDT [facility] LDL/HDL 1.2 0.41 - 2.13 03/20/2024 11:22 AM CDT [facility] NON HDL CHOLESTEROL 90 <140 MG/DL 03/20/2024 11:22 AM CDT [facility] 03/19/2024 12:3 0 PM CDT Zhou Garcia DO LABORATORY Final Re sult [facility] [address] [place] [address], [place] [phone] * (ABNORMAL) CBC W/DIFF AUTOMATED (03/19/2024 12:30 PM CDT) Pathologist [facility] WBC 8.61 4.00 - 10.80 x10'3/uL 03/19/2024 7:26 PM CDT [facility] RBC 4.39 4.10 - 5.40 x10'6/uL 03/19/2024 7:26 [facility] HGB 13.9 12.0 - 16.0 G/DL 03/19/2024 7: PM CDT [facility] HCT 42.2 36.0 - 47.0 % 03/19/2024 7: PM CDT [facility] MCV 96.1 78.0 - 100.0 FL 03/19/2024 7: PM CDT [facility] MCH 31.7(H) 27.0 - 31.0 PG 03/19/2024 7: PM CDT [facility] MCHC 32.9(L) 33.0 - 36.0 G/DL 03/19/2024 7: PM CDT [facility] RDW 13.1 11.5 - 14.5 % 03/19/2024 7: PM CDT [facility] PLT 254 150 - 350 x10'3/uL 03/19/2024 7: PM CDT [facility] MPV 10.2 7.4 - 10.4 FL 03/19/2024 7: PM CDT [facility] DIFFERENTIAL TYPE AUTOMATED DIFFERENTIAL 03/19/2024 7: PM CDT [facility] NEUTROPHILS % 61.8 % 03/19/2024 7: PM T [facility] LYMPHOCYTES % 27.4 % 03/19/2024 7: PM CDT [facility] MONOCYTES % 7.8 % 03/19/2024 7: PM CDT [facility] EOSINOPHILS % 2.1 % 03/19/2024 7: PM CDT [facility] BASOPHILS % 0.6 % 03/19/2024 7: PM CDT [facility] IMMATURE GRANS % 0.3 % 03/19/2024 7: PM T [facility] ABS. NEUTROPHILS 5.32 1.60 - 8.30 x10'3/uL 03/19/2024 7:26 PM CDT [facility] ABS. LYMPHOCYTES 2.36 0.80 - 4.70 x10'3/uL 03/19/2024 7:26 PM CDT [facility] ABS. MONOCYTES 0.67 0.00 - 1.50 x10'3/uL 03/19/2024 7:26 PM CDT [facility] ABS. EOSINOPHILS 0.18 0.00 - 0.40 x10'3/uL 03/19/2024 7:26 PM CDT [facility] ABS. BASOPHILS 0.05 0.00 - 0.20 x10'3/uL 03/19/2024 7:26 PM CDT [facility] ABS. IMMATURE GRANULOCYTES 0.03 0.00 - 0.03 x10'3/uL 03/19/2024 7:26 PM CDT [facility] 03/19/2024 12:3 0 PM CDT Zhou Garcia DO LABORATORY Final Re sult [facility] [address] [place] [address], * VITAMIN D 25 OH ([facility] ONLY) (03/19/2024 12:30 PM CDT) Pathologist [facility] VITAMIN D 25 HYDROXY TOTAL S/P/B 36.4 30 - 100 NG/ML 03/20/2024 11:22 AM CDT [facility] Comment: ? DEFICIENT ??<20 ?INSUFFICIENT 20-30 ?SUFFICIENT 30-100 03/19/2024 12:3 0 PM CDT Zhou Garcia DO LABORATORY Final Re sult Performing Organization Address [facility] Co de Phone Number [facility] [address] [facility] [place] [address], * URINE BACTERIA CULTURE (03/19/2024 11:18 AM CDT) CULTURE RESULT [facility] [place] Comment: ??CULTURE, URINE, ROUTINE ?Micro Number: ?[id number] ??Test Status: ? Final ??Specimen Source: ?? Urine ??Specimen Quality: ??Adequate ??Result: ?No Growth URINE SPECIMEN OBTAINED BY CLEAN CATCH PROCEDURE / Unknown 03/19/2024 11:18 AM CDT 03/20/2024 12:44 AM CDT Narrative Resulting Agency Comment Performing Organization Information: ?Site ID: ?Name: [facility] ?Address: [address] [place] [id number] ?Director: Efren Barrera Zhou Garcia DO MICROBIOLOGY - GENERAL O RDERABLES Final Result Performing Organization Address [facility] de Phone Number [facility] [address], [place] * HEMOGLOBIN, GLYCOSYLATED (03/19/2024) HGB A1C 6.9 % [facility] 03/19/2024 Zhou Garcia DO LABORATORY Final Re sult Performing Organization Address [facility]/ZIP Co de Phone Number [facility] [address] [place] [address], [place] * (ABNORMAL) URINALYSIS AUTO DIP (03/19/2024) COLOR (U) YELLOW YELLOW [facility] TRANSPARENCY CLEAR CLEAR [facility] GLUCOSE (U) NEGATIVE NEGATIVE MG/DL [facility] BILIRUBIN (U) NEGATIVE NEGATIVE [facility] KETONES MG/DL (U) NEGATIVE NEGATIVE MG/DL [facility] SPECIFIC GRAVITY (U) 1.015 1.001 - 1.035 [facility] BLOOD (U) NEGATIVE NEGATIVE [facility] U PH 7.0 5.0 - 9.0 [facility] PROTEIN (U) NEGATIVE NEGATIVE mg/dL [facility] UROBILINOGEN 0.2 0.2 - 1.0 EU/dL = mg/dL [facility] NITRITES NEGATIVE NEGATIVE MG/DL [facility] LEUKOCYTES (U) 1+ (SMALL)(A) NEGATIVE [facility] URINE SPECIMEN OBTAINED BY CLEAN CATCH PROCEDURE / Unknown 03/19/2024 us Zhou Garcia DO URINE ORDERABLES Final R esult Performing Organization Address City/State/[facility] Co de Phone Number [facility] [address] [place] [address], [place] * MG SCREENING W EMILY LARISSA DIGI (07/05/2022 12:00 AM DETACHER) Anatomical Region Laterality Modality Breast Bilateral Mammography 07/05/2022 us Zhou P Lucokstaefeld DO MAMMO Final Re sult * BONE DENSITY/DEXA (07/05/2022 12:00 AM DETACHER) Anatomical Region Laterality Modality Bone Bone Density 07/05/2022 us Zhou P Luchtefeld DO DEXA Final Re sult * DIABETIC RETINOPATHY EXAM (NEGATIVE)(SCAN) (03/28/2022) us [facility] Scanned SCANNING Final Resu lt [facility] ONBASE * HEPATITIS C AB ([facility] ONLY) (11/08/2021 2:01 PM CDT) HEPATITIS C AB NON-REACTI VE NON-REACT CHARLES 11/09/2021 6:30 PM CDT [facility] Comment: ANTIBODIES TO HCV NOT DETECTED. DOES NOT EXCLUDE THE POSSIBILITY OF EXPOSURE TO HCV. 11/08/2021 2:01 PM CDT Zhou Garcia DO LABORATORY Final Re sult Performing Organization Address City/[facility]/ZIP Co de Phone Number [facility] [address] [place] [address], [phone] * COLONOSCOPY GENERIC (01/28/2020) 01/28/2020 [facility] Scanned SCANNING Final Resu lt from Last 3 Months or Most Recently Relevant to Health Maintenance Insurance Care Teams Controls Designer Relationship Specialty Start Date End Date Zhou Garcia DO [address] [place] [address] PCP - General FAMILY PRACTICE 04/18/18 Shiela Reyes, RN [address] [place] [address] Roving Carrier (Ambulatory) REGISTERED NURSE 05/11/20
--- OUTSIDE RECORDS SUMMARY | 2024-06-13 11:23 | XMS_ITS | Encounter Summary ---
Author Organization [facility] Address [facility] [place] [address] [place] [address] Care Team Providers Care Dairy Equipment Installer Name Role Phone Zhou Garcia DO Primary Care Provider + Shiela Reyes RN Unavailable [phone] Reason for Visit * Reason Onset Date Comments Referral 03/18/2024 Encounter Details Date Type Department Care Team (Late st Contact Info) Description 03/18/2024 Telephone [facility] Medical [facility] Family & Internal Medicine [facility] [address] [place] [address] Zhou Garcia DO [address] [place] [address] Referral Social History Tobacco Use Types Packs/Day Years Used Date Smoking Tobacco: Every Day Cigarettes 1 55 Passive Smoke Exposure: Current Smokeless Tobacco: Never 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 No 08/10/2022 Comments No Sex and Gender Information Value Date Recorded Sex Assigned at Not on file Legal Sex Female 5:03 PM CHUCK SPLITTER Gender Identity Not on file Sexual Orientation Not on file documented as of this encounter Progress Notes * Zhou Garcia DO - 03/18/2024 2:17 PM CDT That's fine. * Nikole Tomlin - 03/18/2024 1:15 PM CDT Johanna at [facility] called and said that pt only wants to continue with PT at this time, so she will need order for that. She has not been seen at [facility] and doesn't want to be seen at this time. Pt has appt with Dr. Crawford tomorrow and will discuss further. documented in this encounter Plan of Treatment Upcoming Encounters Date Type Department Care Team (Late st Contact Info) Description 07/18/2024 9:20 AM CHUCK SPLITTER Office Visit [facility] Medical Group Family & Internal Medicine - [address] [address] Zhou Garcia DO [address] [place] [address] documented as of this encounter Goals Goal Patient Goal Type Associated Problems Recent Progress Patient-Stated? Author Establish Regular Follow-Ups with PCP General On track(2024 2:46 PM CHUCK SPLITTER) Shiela Moser RN Note: 04/24/24: Scheduled to see PCP on 05/20/24. Encouraged to call before that time if needed. 03/14/24: Confirmed appointment with PCP on 03/19/24 at 10:40 am. Reduce Blood Pressure General On track(2024 2:46 PM CHUCK SPLITTER) Shiela Moser RN Note: Patient will monitor B/P several times per week if able and report to physician or CC if B/P consistently >140/90 Patient will maintain a low sodium diet . Patient will call provider with any CP, SOB, visual disturbances, headaches, lightheadedness, dizziness. Patient to take all medications as prescribed. Establish Plan for Symptom Monitoring- COPD General On track(2024 2:45 PM CHUCK SPLITTER) Shiela Moser RN Note: Patient will recognize [...] Monitoring- DM General On track(2024 2:45 PM CHUCK SPLITTER) Shiela Moser RN Note: Patient will manage [...] Lab Work Lifestyle On track(2024 2:46 PM CHUCK SPLITTER) No Shiela Reyes RN Note: 04/24/24: Due for calcium urine 24 hour. She will have done at [place]. Sent message to [place] to get lab ordered faxed to [place] out patient lab. Per patient's request. 04/09/24: Lab work completed on 03/19/24. documented as of this encounter Visit Diagnoses Not on filedocumented in this encounter Additional Health Concerns Assessment Noted Time PHQ-9 Depression Total Score: 16 023 11:55 AM CDT documented as of this encounter Care Teams Dairy Equipment Installer Relationship Specialty Start Date End Date Zhou Garcia DO [address] [place] [address] PCP - General FAMILY PRACTICE 04/18/18 [place] [address] [place] [address] Adventure Education Teacher (Ambulatory) REGISTERED NURSE 05/11/20 documented as of this encounter
--- OUTSIDE RECORDS SUMMARY | 2024-06-13 11:23 | XMS_ITS | Clinical Summary ---
Author Organization [facility] Address [address] [address] Phone Care Team Providers Care Pipefitter Helper Name Role Phone Radha Zhou Jessica JJ Primary Care Provider + Allergies Active Allergy Reactions Criticality Noted Date Comments Aminoglycosides Swelling 09/01/2022 Bacitracin Swelling 09/01/2022 Fish Allergy Other (see Comments) 09/01/2022 severe Medications tamsulosin (FLOMAX) 0.4 MG Capsule Take 0.4 mg by mouth daily. Active levothyroxine (SYNTHROID) 88 MCG Tablet Take 88 mcg by mouth daily. Active divalproex (DEPAKOTE) 500 MG Tablet Delayed Response Take 500 mg by mouth 3 times daily. Active cyclobenzaprine (FLEXERIL) 10 MG Tablet Take 10 mg by mouth 3 times daily as needed. Active venlafaxine (EFFEXOR-XR) 150 MG CAPSULE SR 24 HR Take 150 mg by mouth daily. Active aspirin EC 81 MG Tablet Delayed Response Take 81 mg by mouth daily. Active naproxen (NAPROSYN) 500 MG Tablet Take 500 mg by mouth 2 times daily (with meals). Active venlafaxine (EFFEXOR) 75 MG Tablet Take 75 mg by mouth 3 times daily. Active simvastatin (ZOCOR) 5 MG Tablet Take 5 mg by mouth every evening. Active busPIRone (BUSPAR) 5 MG Tablet Take 5 mg by mouth 3 times daily. Active Encounters Date Type Department Care Team Description 05/10/2024 Patient Outreach [facility] [address] [place] [phone] Navigator, [employer] [place] Social Concerns (Pt contacted [place] to discuss information previously provided to her ,.) from Last 3 Months Family History Medical History Relation Name Comments Heart Disease Father Breast Cancer Mother Heart Disease Mother Mental Disorder, Other Other Relation Name Status Comments Father Mother Other Social History Tobacco Use Types Packs/Day Years Used Date Smoking Tobacco: Former Cigarettes 1994 Passive Smoke Exposure: Past Smokeless Tobacco: Never Tobacco Cessation:Counseling Given: Not Answered Alcohol Use Standard Drinks/Week Comments Not Currently 0 (1 standard drink = 0.6 oz pur e alcohol) Comments Unknown Sex and Gender Information Value Date Recorded Sex Assigned at Not on file Legal Sex Female 2:32 PM DOCK OR PIER LABORER Gender Identity Not on file Sexual Orientation Not on file Plan of Treatment Health Maintenance Due Date Last Done Comments DEXA Bone Density 1950 Hepatitis C Virus (HCV) Screening 1950 TdaP Immunization 1950 Mammogram 1989 Colonoscopy 1994 Colorectal Cancer Screening 1994 Cologuard 09/24/1999 Immunochemical Fecal Occult Blood 09/24/1999 Pneumococcal Immunization (5 0+ years) (1 of 1 - PCV) 09/24/1999 Zoster Immunization (1 of 2) 09/24/1999 Influenza Immunization (#1) 2024 SARS-COV-2 Immunization ( - 2023- season) 2024 Respiratory Syncytial Virus (RSV) Immunization (Adult) (1 - 1-dose 75+ series) 2024 Hepatitis B Immunization Aged Out No longer eligible based on patient's age to complete this topic Meningococcal Immunization (ACWY) Aged Out No longer eligible based on patient's age to complete this topic Rotavirus Immunization Aged Out No lo nger eligible based on patient's age to complete this topic Insurance [facility]IC[email or web address] Care Teams Pipefitter Helper Relationship Specialty Start Date End Date Zhou Garcia DO [address] [place] [id number] PCP - General Family Medicine 07/06/20
--- OUTSIDE RECORDS SUMMARY | 2024-06-13 11:23 | XMS_ITS | Data Portability ---
Author Organization [facility], Main Office Address [address] [place] [address] Care Team Providers Care Measurement Department Chief Clerk Name Role Phone THOMPSON MATHEW Primary Care Provider PRIYANKATHOMPSON Referring Provider Assessment Encounter Date Assessment Date Assessment LastModified by Organization Details LastModified Time 07/27/2023 07/27/2023 This note is dictated and transcribed by [email or web address]. Manager [employer] variances may occur. Despite proofreading, typographical errors may occur. Occasional wrong-word or '[id number]' substitutions may have occurred due to the inherent limitations of voice recording. Read the chart carefully and recognize, using context, where substitutions have occurred. mahi Not available 07/31/2023 11:06:05 Plan of Treatment Reminders Order Date Submit Date Provider Last Modified By Organization Details Last Modified Time Details Appointments None recorded. Lab None recorded. Referral None recorded. Procedures None recorded. Surgeries None recorded. Imaging None recorded. Medication Orders ketoconazol e 2 % topical cream 2022 1205 023 [facility] [address] [place], [address], 3 13:31:42 Patient TargetsNo targets recorded. Patient Instructions Encounter Date Encounter Id Patient Instructions Last Modified By Organization Details Last Modified Time 07/27/2023 [id number] diabetic foot care education mahi Not available 07/31/2023 11:06:17 diabetic neuropathy: care instructions mahi Not available 07/31/2023 11:06:17 Reason for Referral None Reported. Problems Name Problem SNOMED Code Status Onset Date Resolution Date Notes Provider Name and Address Organization Details Recorded Time Superficial foreign body in toe Active 2020 Not Available [facility] 03/02/202 3 00:05:36 Onychomycosis of toenails 131512712 Active 2022 Artem Patel DPM [address], [address] [facility], [place], [address] , [facility] 13:31:16 Diabetes mellitus 82700840 Active 2022 Artem Patel DPM [address], [place] [address], [place], [address] , [facility] [employer] [facility] [employer] [facility] 3 15:37:44 Hammer toe 690165854 Active 2022 Artem Patel DPM [address], [address], [place], [place], [address] [place] [address] , [facility] [employer] [facility] [employer] [facility] 15:38:13 Problem Notes None recorded. Procedures Surgical History Date Name Laterality Status Provider Name and Address Organization Details Recorded Time 04/25/20 23 Nail Debridement completed Artem Patel DPM [address], [address], [place], [address], [facility] [employer] [employer] [facility] 04/25/2023 15:37:30 Pacemaker completed Not Available [facility] 0 07/21/2022 00:04:57 open heart surgery completed Not Available [facility] 07/21/2022 00:04:57 aortic valvotomy completed Not Available [facility] 07/21/2022 00:04:57 Imaging Results None recorded. Procedure Notes None recorded. Medical Equipment None Reported. Allergies Allergen ID Allergen Name Allergen Category Reaction Reaction Severity Criticality Documentation Date Start Date Code Code System Note Provider Name and Address Organization Details Recorded Time 02577 Product containin g penicilli n and antibioti c (product) medicatio n Not available Not available Not available 07/21/2022 99219 05 SNOMED Not Available [facility] 3 00:06:30 67771 latex environme nt,medica tion Not available Not available Not available 07/21/2022 19362 91 RxNorm Not Available [facility] 00:06:30 Medications Name Sig Start Date Stop Date Status Note LastModified by Organization Details LastModified Time furosemide 40 mg tablet TAKE 1 TABLET BY MOUTH ONCE DAILY 07/26 completed Not Available Not Available Not Available fluconazole 100 mg tablet 07/26 completed Not Available Not Available Not Available fluticasone 250 mcg-salmete rol 50 mcg/dose blistr powdr for inhalation INHALE 1 DOSE BY MOUTH TWICE DAILY 07/26 completed Not Available Not Available Not Available doxycycline hyclate 100 mg capsule TAKE ONE CAPSULE BY MOUTH 60 MINUTES PRIOR TO DENTAL PROCEDURE active Not Available Not Available No t Available clindamycin HCl 300 mg capsule 07/26 completed Not Available Not Available Not Available nystatin 100,000 unit/gram topical ointment APPLY OINTMENT TOPICALLY TO AFFECTED AREA TWICE DAILY FOR 7 DAYS active Not Available Not Available No t Available fluconazole 150 mg tablet TAKE ONE TABLET BY MOUTH NOW AND REPEAT IN 72 HOURS. 07/26 completed Not Available Not Available Not Available fluorouraci l 5 % topical cream APPLY A THIN LAYER TO FOREHEAD AND NOSE TWICE DAILY FOR 2 WEEKS. LAYER WITH AQUAPHOR OR VASELINE FOR DISCOMFOR T. active Not Available Not Available No t Available permethrin 5 % topical cream APPLY TOPICALLY HEAD TO TOE BEFORE BEDTIME FOR ONE DOSE. LEAVE ON FOR 8-14 HOURS, THEN RINSE OFF 07/26 completed Not Available Not Available Not Available metronidazo le 500 mg tablet 07/26 completed Not Available Not Available Not Available amlodipine 5 mg tablet 07/26 completed Not Available Not Available Not Available sulfamethox azole 800 mg-trimetho prim 160 mg tablet 07/26 completed Not Available Not Available Not Available omeprazole 40 mg capsule,del ayed release 07/26 completed Not Available Not Available Not Available simvastatin 40 mg tablet TAKE 1 TABLET BY MOUTH NIGHTLY AT BEDTIME active Not Available Not Available No t Available oxycodone-a cetaminophe n 5 mg-325 mg tablet 07/26 completed Not Available Not Available Not Available amoxicillin 875 mg tablet 07/26 completed Not Available Not Available Not Available amlodipine 10 mg tablet TAKE 1 TABLET BY MOUTH ONCE DAILY active Not Available Not Available No t Available pantoprazol e 40 mg tablet,joanne yed release 07/26 completed Not Available Not Available Not Available sertraline 25 mg tablet TAKE ONE-HALF TABLET BY MOUTH ONCE DAILY FOR ONE WEEK, THEN INCREASE TO ONE TABLET DAILY THEREAFTE R 07/26 completed Not Available Not Available Not Available triamterene 37.5 mg-hydrochl orothiazide 25 mg tablet 07/26 completed Not Available Not Available Not Available hydrochloro thiazide 25 mg tablet 07/26 completed Not Available Not Available Not Available mupirocin 2 % topical ointment APPLY A SMALL AMOUNT OF OINTMENT TOPICALLY TO THE AFFECTED AREA THREE TIMES DAILY FOR 7 DAYS active Not Available Not Available No t Available furosemide 20 mg tablet TAKE 1 TABLET BY MOUTH ONCE DAILY active Not Available Not Available No t Available ibuprofen 600 mg tablet TAKE 1 TABLET BY MOUTH EVERY 6 HOURS NEEDED FOR PAIN 07/26 completed Not Available Not Available Not Available benazepril 40 mg tablet TAKE 1 TABLET BY MOUTH ONCE DAILY active Not Available Not Available No t Available methylpredn isolone 4 mg tablets in a dose pack TAKE BY MOUTH DIRECTED ON INSIDE OF PACKAGE 07/26 completed Not Available Not Available Not Available albuterol sulfate HFA 90 mcg/actuati on aerosol inhaler INHALE 2 PUFFS BY MOUTH EVERY 6 HOURS NEEDED FOR WHEEZING FOR SHORTNESS OF BREATH active Not Available Not Available No t Available ketoconazol e 2 % topical cream APPLY CREAM TO THE AFFECTED AREA(S) OF TOENAILS TOPICALLY ONCE DAILY active Not Available Not Available No t Available ondansetron 4 mg disintegrat ing tablet DISSOLVE 1 TABLET IN MOUTH EVERY 6 HOURS NEEDED FOR NAUSEA OR VOMITING. ALLOW TABLET TO DISSOLVE ON THE TONGUE. 07/26 completed Not Available Not Available Not Available fluticasone propionate 50 mcg/actuati on nasal spray,suspe nsion USE 2 SPRAY(S) IN EACH NOSTRIL ONCE DAILY active Not Available Not Available No t Available metformin ER 500 mg tablet,exte nded release 24 hr TAKE 2 TABLETS BY MOUTH ONCE DAILY WITH BREAKFAST active Not Available Not Available No t Available oxycodone 5 mg tablet TAKE 1 TABLET BY MOUTH EVERY 4 HOURS NEEDED FOR PAIN 07/26 completed Not Available Not Available Not Available ciprofloxac in 0.3 %-dexametha sone 0.1 % ear drops,suspe nsion INSTILL 4 DROPS INTO EACH EAR TWICE DAILY FOR 10 DAYS active Not Available Not Available No t Available Nyamyc 100,000 unit/gram topical powder APPLY POWDER TOPICALLY TO AFFECTED AREA TWICE DAILY active Not Available Not Available No t Available Advair HFA 230 mcg-21 mcg/actuati on aerosol inhaler INHALE 2 PUFFS BY MOUTH TWICE DAILY active Not Available Not Available No t Available levocetiriz ine 5 mg tablet TAKE 1 TABLET BY MOUTH ONCE DAILY 07/26 completed Not Available Not Available Not Available Farxiga 5 mg tablet TAKE 1 TABLET BY MOUTH ONCE DAILY active Not Available Not Available No t Available Anoro Ellipta 62.5 mcg-25 mcg/actuati on powder for inhalation 07/26 completed Not Available Not Available Not Available Vitals Date Recorded Body height Heart rate Systolic blood pressure Diastolic blood pressure Provider Name and Address Organization Details Last Updated DateTime 04/22/2021 167.64 cm 101 /min 158 mm[Hg] 103 mm[Hg] Not Available [facility] 07/21/2022 00:05:15 Date Recorded Heart rate Respiratory rate Oxygen saturation Oxygen saturation in Arterial blood by Pulse oximetry Systolic blood pressure Diastolic blood pressure Provider Name and Address Organization Details Last Updated DateTime 3 86 /min 14 /min 98 % 98 % 154 mm[Hg] 85 mm[Hg] Arielle Prado [employer] 3 12:47:25 Date Recorded Heart rate Respiratory rate Oxygen saturation Oxygen saturation in Arterial blood by Pulse oximetry Systolic blood pressure Diastolic blood pressure Provider Name and Address Organization Details Last Updated DateTime 4 69 /min 14 /min 98 % 98 % 168 mm[Hg] 87 mm[Hg] Arielle Johan [employer] 4 16:12:58 Social History Question Answer Notes LastModified by Organizat ion Details LastModified Time Tobacco Smoking Status Former Smoker Not Available [facility] 07/21/2022 00:04:47 What Is Your Level Of Alcohol Consumption? None [id number] Information not available 07/21/2022 What Is Your Level Of Caffeine Consumption? Occasional [id number] Information not available 07/21/2022 What Was The Date Of Your Most Recent Tobacco Screening? 04/22/2021 [id number] Information not available 07/21/2022 Do You Use Any Illicit Or Recreational Drugs? No [id number] Information not available 07/21/2022 Has Tobacco Cessation Counseling Been Provided? No [id number] Information not available 07/21/2022 Do You Or Have You Ever Used Any Other Forms Of Tobacco Or Nicotine? No [id number] Information not available 07/21/2022 Sex: Unknown Functional Status None recorded. Mental Status None recorded. Family History Relationship Description Onset Age of this Age Resolved Age Notes LastModified by Organization Details LastModified Time Sister Diabetes mellitus [id number] Not available 07/21/2022 00:04:58 Mother Arthritis [id number] Not available 07/21/2022 00:04:58 Mother Pulmonary embolism [id number] [id number] Not available 07/21/2022 00:04:58 Father Arthritis [id number] Not available 07/21/2022 00:04:58 Father Heart disease [id number] [id number] Not available 07/21/2022 00:04:58 Unspecified Relation Family history of malignant neoplasm [id number] Not available 07/21/2022 00:04:58 Maternal Grandfather Family history of malignant neoplasm MIGRATION.329 [id number] Not available 07/21/2022 00:04:58 Maternal Grandmother Osteoporosis MIGRATION.0 30 [id number] Not available 07/21/2022 00:04:58 Medical History Condition Response CANCER: SPECIFY Y ARTHRITIS Y HEADACHES/MIGRAINES Y OBESITY Y DIZZINESS Y DIABETES, TYPE Y OSTEOPOROSIS Y DEPRESSION (INCLUDING POST ) Y BACK / NECK PROBLEMS Y HIGH CHOLESTEROL / HYPERLIPIDEMIA Y Gynecological HistoryNo gynecological history recorded. Obstetrics History GPAL:G 0 P 0 0 0 0 Past Encounters Encounter ID Performer Location Encounter Start Date Encounter Closed Date Diagnosis/Indication Diagnosis SNOMED-CT Code Diagnosis ICD10 Code Diagnosis Note [id number] [facility] [place] [address] [address] 04/22/2021 00:00:00 04/26/2021 09:00:11 [id number] Artem Patel DPM [facility] [place] [address] [facility], [address] [address] 04/25/2023 12:40:40 04/26/2023 16:37:21 Onychomycosis of toenails 687310274 B35.1 Nails debrided without incidentRx ketoconazo lefollow-u p 3 months Diabetes mellitus 742341 09 E11.9 Patient educated on neuropathy , diabetes, diabetic diet, and daily foot exams. Patient is to check feet daily for new wounds, blisters, redness to prevent infection and ulceration s to the feet. Patient will return to clinic in 3 months for diabetic foot workup. Hammer toe 191470651 M20 .41 educated on conditionT reatment options reviewedPa tient defers surgery will continue conservati ve therapy with offloading to prevent wounds infectionE ducated on shoe gearFollow -up as needed [id number] Artem Patel DPM [facility] [place] [address] [facility], [address] [place] [address] 07/27/2023 16:01:10 07/31/2023 17:35:17 Diabetes mellitus 96951015 E11.9 Patient educated on neuropathy , diabetes, diabetic diet, and daily foot exams. Patient is to check feet daily for new wounds, blisters, redness to prevent infection and ulceration s to the feet. Patient will return to clinic in 3 months for diabetic foot workup. Onychomyco sis of toenails 111654819 B35.1 Nails debrided without incidentRx ketoconazo le Continue at homefollow -up 3 months Health Concerns Section Related Observation LastModified by Organization Detai ls LastModified Time None Recorded Concern Status LastModified by Organization Details LastModified Time None Recorded Advance Directives Directive None Recorded Payers Encounter Date Sequence Insurance Name Policy Number Policy Shen Covered Member ID Shen Member ID Guarantor Name 04/25/2023 1 [facility] (MEDICARE REPLACEMENT/AD VANTAGE - HMO) [id number] Lissy Hernández [id number] Lissy Hernández 04/25/2023 2 [facility] (MEDICAID REPLACEMENT - HMO) [id number] Lissy Hernández [id number] Lissy Hernández 07/27/2023 1 [facility] (MEDICARE REPLACEMENT/AD VANTAGE - HMO) [id number] Lissy Hernández [id number] Lissy Hernández 07/27/2023 2 [facility] (MEDICAID REPLACEMENT - HMO) [id number] Lissy Hernández [id number] Lissy Hernández Notes Date Note Type Note Provider Name and Address Organization Details Recorded Time 04/25/2023 text/html . Patient is a 72-year-old female who presents the office with complaints of thickened painful toenails. Patient denies any treatment for this condition. Patient states she has had previous toenail removal of the right great toenail and still has some scarring of the nail plate secondary to that procedure. Patient denies any other complaints. [facility]el DPM [address] [facility] [address], [place], [address], [employer] 04/25/2023 15:38:43 07/27/2023 text/html . Patient is a 72-year-old female who returns the office for follow-up on diabetic foot care. Patient denies any new complaints. Patient denies any open wounds or infection. Patient denies any pain with walking. Artem Patel DPM [address], [facility] [address], [place], [address], [employer] 07/31/2023 11:06:42 OBGyn Episode No OBEpisode recorded.
--- OUTSIDE RECORDS SUMMARY | 2024-06-13 11:23 | XMS_ITS | Clinical Summary ---
Author Organization [facility] Address [address] [facility] [place] [address] Care Team Providers Care Baker Pie Name Role Phone Zhou Garcia Primary Care Provider + Source Comments [facility],non-owned Affiliates and Associated Physician Practices is amultiple site organization consisting of ambulatory clinics and hospital sitesin [place], [place], [place] and [place]. This disclosure is being madepursuant to the Care Everywhere program and may not contain all information available regarding this patient. Last updated 18.[facility] Allergies Active Allergy Reactions Criticality Noted Date [...] daily 30 tablet 09/21/2022 Active nystatin (Mycostatin) 579543 UNIT/GM powder Apply to affected area 2 [...] (08/25/2022): Added automatically from request for surgery [id number] Added automatically from request for surgery [id number] Added automatically from request for surgery [id number] Essential (primary) hypertension 05/03/2018 Family History Medical History Relation Name Comments Cancer - Breast Cousin Cancer - Prostate Maternal Grandfather DVT - Deep Vein Thrombosis Mother Relation Name Status Comments Cousin Alive Maternal Grandfather Mother Social History Tobacco Use Types Packs/Day [...] 09/21/2022 6:03 AM CDT Plan of Treatment Health Maintenance Due Date Last Done Comments COLOGUARD (AGES 45-75) - COLON CA SCREENING 1949 COLON MONITORING 1949 COLONOSCOPY - COLON CA SCREENING 1949 CT COLONOGRAPHY - COLON CA SCREENING 1950 Colorectal Cancer Screening 1949 FIT - COLON CA SCREENING 1949 FLEX SIG - COLON CA SCREENING 1949 HEPATITIS C SCREENING 09/19/1967 DTAP/TDAP/TD VACCINES (1 - Tdap) 1968 PNEUMOCOCCAL VACCINE 50+ (1 of 2 - PCV) 1968 ZOSTER VACCINE (1 of 2) 09/24/1999 HEPATITIS B VACCINE (1 of 3 - Risk 3-dose series) 2009 Respiratory Syncytial Virus (RSV) Vaccine Pt: or over 60 yrs (1 - Risk 60-74 years 1-dose series) 2009 DIABETES RETINOPATHY SCREENING 08/25/2022 DIABETES-FOOT EXAM WITH MONOFILAMENT 08/25/2022 DIABETES-HGB A1C 01/02/2024 07/04/2023, 03/2023, 09/20/2021 COVID-19 VACCINE ( season) 2024 05/27/2021, 09/09/2020, 08/12/2020 INFLUENZA VACCINE (#1) 2024 , 03/24/2022, 03/25/2021, Additional history exists DEPRESSION SCREENING 05/22/2024 DIABETES - URINE PROTEIN SCREENING 05/22/2024 MEDICARE AWV ? CALENDAR YEAR 2024 MAMMOGRAM 07/05/2024 07/05/2022 DIABETES-SERUM CREATININE 08/16/20242023, 09/21/2022, 09/14/2022, Additional history exists BONE DENSITY TESTING Completed 07/05/2022 HIB VACCINE Aged Out No longer eligi ble based on patient's age to complete this topic HPV VACCINE Aged Out No longer eligi ble based on patient's age to complete this topic MENINGOCOCCAL (Group B) VACCINE Aged Out No longer eligible based on patient's age to complete this topic MENINGOCOCCAL VACCINE Aged Out No navid darryl eligible based on patient's age to complete this topic Procedures Procedure Name Priority Date/Time Associated Diagnosis Comments COMPREHENSIVE METABOLIC PANEL Pre-Op 09/21/2022 6:11 AM CDT Preop examination from Last 3 Months or Most Recently Relevant to Health Maintenance Results * (ABNORMAL) COMPREHENSIVE METABOLIC PANEL (09/21/2022 6:11 AM CDT) Glucose 135(H) 70 - 105 mg/dL 09/21/2022 6:55 AM CDT [facility] Sodium 142 136 - 145 mmol/L 09/21/2022 6:55 AM CDT [facility] Potassium 3.8 3.5 - 5.1 mmol/L 09/21/2022 6:55 AM CDT [facility] Chloride 108(H) 98 - 107 mmol/L 09/21/2022 6:55 AM CDT [facility] CO2 23 23 - 31 mmol/L 09/21/2022 6:55 AM CDT [facility] Calcium 10.5(H) 8.4 - 10.4 mg/dL 09/21/2022 6:55 AM CDT [facility] Anion Gap 11 8 - 18 mmol/L 09/21/2022 6:55 AM CDT [facility] BUN 22(H) 9.8 - 20.1 mg/dL 09/21/2022 6:55 AM CDT [facility] Creatinine 1.34(H) 0.57 - 1.11 mg/dL 09/21/2022 6:55 AM CDT [facility] Alkaline Phosphatase 111 40 - 150 U/L 09/21/2022 6:55 AM CDT [facility] ALT 21 0 - 61 U/L 09/21/2022 6:55 AM CDT [facility] AST 20 5 - 34 U/L 09/21/2022 6:55 AM CDT [facility] Protein Total 7.3 6.4 - 8.3 gm/dL 09/21/2022 6:55 AM CDT [facility] Albumin 4.3 3.2 - 4.6 gm/dL 09/21/2022 6:55 AM CDT [facility] Bilirubin Total 0.7 0.2 - 1.2 mg/dL 09/21/2022 6:55 AM CDT [facility] eGFR by CKD-EPI 42(L) >=90 mL/min/1.7 3 m2 09/21/2022 6:55 AM CDT [facility] Blood BLOOD SPECIMEN / Unknown Venipuncture / Unknown 09/21/2022 6:11 AM CDT 09/21/2022 6:28 AM CDT Joni Fair MD LAB - CHEMISTRY YASMEEN [place] [facility] [address] [place] [address] from Last 3 Months or Most Recently Relevant to Health Maintenance Care Teams Baker Pie Relationship Specialty Start Date End Date Zhou Garcia DO [address] [place] [id number] PCP - General 08/05/22
--- OUTSIDE RECORDS SUMMARY | 2024-06-13 11:23 | XMS_ITS | Data Portability ---
Author Organization [facility] Address [address] [place] [address] Care Team Providers Care Chess Instructor Name Role Phone THOMPSON MATHEW Referring Provider Assessment Encounter Date Assessment Date Assessment LastModified by Organization Details LastModified Time 07/06/2022 07/06/2022 Discussed US results in depth and ddx EMB attempted, cervix stenotic and atrophic. pt uncomfortable, will attempt HSC D and C in OR instead consented, discussed RBA, will schedule she is aware of risk of cancer and need for endometrial sampling. we discussed her risks of anesthesia with her multiple medical problems nystop for intertrigo. [email or web address] Not available 07/06/2022 17:48:24 07/19/2022 07/19/2022 discussed no bleeding is reassuring, but with cervical stenosis, bleeding could be blocked ddx from benign to malignant discussed surgery and risks including those of anesthesia given her medical problems. consented, questions answered. [email or web address] Not available 07/22/2022 09:49:24 08/01/2022 08/01/2022 Discussed pathology and diagnosis of suspected endometrial carcinoma with at least complex atypical hyperplasia. questions answered, support given. discussed referral to wash test checker onc, treatment likely to be hyst with staging. pt prefers not [facility] as she is nervous trying to get around their campus. would prefer [facility] if possible with her insurance. [email or web address] Not available 08/01/2022 18:47:29 Plan of Treatment Reminders Order Date Submit Date Provider Last Modified By Organization Details Last Modified Time Details Appointments None recorded. Lab None recorded. Referral dermatologi st referral 2022 023 [place] [address] [facility], [address] [place], [address], 4 14:14:45 Procedures None recorded. Surgeries dilation and curettage with hysteroscop y (SURG) 2022 023 [facility], [address], [place], [address], 3 09:07:16 Imaging None recorded. Medication Orders nystatin 100,000 unit/gram topical powder 2022 023 [facility] [place], [address], 3 16:48:13 nystatin 100,000 unit/gram topical ointment 2022 023 [facility], [address] [place], [address], 3 16:15:10 nystatin 100,000 unit/gram topical powder 2022 023 [facility] [place], [address], 3 09:12:44 mupirocin 2 % topical ointment 2022 023 [facility] [address] [place], [address], 3 16:15:05 Patient TargetsNo targets recorded. Patient InstructionsNo instructions recorded. 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 detection, direct probe Negati ve negati ve Not Available [facility] (Lab) [address], [place], [address], 04/13/2023 08:41:58 04/10/20 23 04/10/2023 VAGIN ITIS/ VAGIN OSIS, DNA PROBE gardnerella vag. detection, direct probe Negati ve negati ve Not Available [facility] (Lab) [address] [facility], [place], [address], 04/13/2023 08:41:58 04/10/2004/10/2023 VAGIN ITIS/ VAGIN OSIS, DNA PROBE trichomonas vag. detection, direct probe Negati ve negati ve Not Available [facility] (Lab) [address] [facility], [place], [address], 04/13/2023 08:41:58 04/10/2004/10/2023 CULTU RE: AEROB IC/AN AEROB IC result report SEE RESULT S BELOW Test: Cultu re: Aerob ic/An aerob ic Speci men Sourc e: Other Speci men Type: Micro biolo gy Speci men Speci men Date: 04/10 5:17 PM Resul t Date: 04/13 7:38 AM Resul t Statu s: Final resul t Yareli bernstein Lab: [facility] [address] [facility] [address] Tel: CULTU RE ----- ----- ----- --- Light Growt h Hetal l skin sheryl Cultu re sampl es colle cted from sites that are proxi mal to hetal l anaer obic sheryl , do not provi de usefu l infor matio n. The anaer obic porti on of this cultu re has been credi mimi. STAIN ----- ----- ----- --- No organ isms seen Not Available [facility] (Lab) [address] [facility], [place], [address], 04/13/2023 08:41:58 06/13/19 23 05/22/2022 CT, abdom en + pelvi s, w/o contr ast No observ ation record ed. [email or web address] [facility] [address], [place], [address], 09/29/2022 15:46:20 06/28/19 23 06/28/2022 US, trans vagin al No observ ation record ed. [email or web address] [facility] [address], [place], [address], 10/03/2022 11:13:35 06/28/19 23 06/28/2022 US, trans vagin al No observ ation record ed. [email or web address] [facility] [address], [place], [address], 07/06/2022 16:25:16 Result Notes None recorded. Problems Name Problem SNOMED Code Status Onset Date Resolution Date Notes Provider Name and Address Organization Details Recorded Time Type 2 diabetes mellitus 50058971 Active 2022 Gwen Conteh MD [address], [place], [address], [facility] 3 17:03:29 Essential hypertensi on 91771111 Active 2022 Gwen Conteh MD [address], [place], [address], [facility] 3 17:03:47 Hyperlipid emia 97038398 Active 2022 Gwen Conteh MD [address], [place], [address], [facility] 3 17:03:55 Coronary arterioscl erosis 94661305 Active 2022 Gwen Conteh MD [address], [place], [address], [facility] 3 17:04:04 Chronic obstructiv e pulmonary disease 43580094 Active 2022 Gwen Conteh MD [address], [place], [address], [facility] 3 17:04:21 Heavy tobacco smoker 927956771132 103 Active 2022 Gwen Conteh MD [address], [place], [address], [facility] 3 17:05:02 Endometria l carcinoma 052704850 Active 2022 Gwen Conteh MD [address], [place], [address], [facility] 18:46:14 Problem Notes None recorded. Procedures Surgical History Date Name Laterality Status Provider Name and Address Organization Details Recorded Time 01/21/20 23 biopsy of lesion of cheek completed Andressa Simon [facility] 04/10/2023 16:08:00 09/20/19 23 Total Hysterectomy completed Andressa Simon [facility] 04/11/2023 14:09:48 07/26/19 23 DILATION AND CURETTAGE WITH HYSTEROSCOPY (SURG) completed Nickie Wilder [facility] 07/26/2022 10:16:01 07/06/19 23 Endometrial Biopsy completed Gwen Conteh MD [address], [place], [address], [facility] 07/06/2022 17:46:51 05/22/19 22 balloon dilation of achalasia of esophagus completed Andressa Simon [facility] 04/11/2023 14:19:09 06/25/19 21 open heart surgery completed Andressa Simon [facility] 04/10/2023 15:28:01 05/22/19 20 cardiac pacemaker procedure completed Sophia Montesinos [facility] 06/13/2022 16:40:04 05/22/19 13 Colonoscopy completed Andressa Simon [facility] 04/10/2023 16:08:05 Imaging Results Imaging Date Name Status LastModified by Organization Details LastModified Time 05/22/2022 CT, abdomen + pelvis, w/o contrast completed [address], [place], [address], 09/29/2022 15:46:20 06/28/2022 US, transvaginal completed [address] [place], [address], 10/03/2022 11:13:35 06/28/2022 US, transvaginal completed [email or web address] [facility] [address], [place], [address], 07/06/2022 16:25:16 Procedure Notes None recorded. Medical Equipment None Reported. Allergies Allergen ID Allergen Name Allergen Category Reaction Reaction Severity Criticality Documentation Date Start Date Code Code System Note Provider Name and Address Organization Details Recorded Time 23035 latex environme nt,medica tion Not available Not available Not available 06/13/2022 97411 91 RxNorm Sophia mahan [facility] 16:38:23 73406 Product containin g penicilli n and antibioti c (product) medicatio n Not available Not available Not available 06/13/2022 73355 05 SNOMED Sophia mahan [facility] 16:38:34 23674 amlodipin e medicatio n Not available Not available Not available 06/13/2022 04255 RxNorm Sophia mahan [facility] 16:38:39 Medications Name Sig Start Date Stop Date Status Note LastModified by Organization Details LastModified Time furosemide 40 mg tablet TAKE 1 TABLET BY MOUTH ONCE DAILY 07/19 completed Not Available Not Available Not Available fluticasone 250 mcg-salmete rol 50 mcg/dose blistr powdr for inhalation INHALE 1 DOSE BY MOUTH TWICE DAILY 04/10 completed Not Available Not Available Not Available doxycycline hyclate 100 mg capsule TAKE 1 CAPSULE BY MOUTH TWICE DAILY FOR 10 DAYS 06/13 completed Not Available Not Available Not Available nystatin 100,000 unit/gram topical ointment APPLY OINTMENT TOPICALLY TO AFFECTED AREA TWICE DAILY FOR 7 DAYS active Not Available Not Available No t Available fluconazole 150 mg tablet TAKE ONE TABLET BY MOUTH NOW AND REPEAT IN 72 HOURS. 04/10 completed Not Available Not Available Not Available promethazin e 25 mg rectal suppository INSERT 1 SUPPOSITO RY RECTALLY EVERY 6 HOURS NEEDED FOR NAUSEA OR VOMITING 04/10 completed Not Available Not Available Not Available fluorouraci l 5 % topical cream APPLY CREAM TOPICALLY TWICE DAILY FOR 2 WEEKS TO AFFECTED SITES ON FACE 04/10 completed Not Available Not Available Not Available permethrin 5 % topical cream APPLY TOPICALLY HEAD TO TOE BEFORE BEDTIME FOR ONE DOSE. LEAVE ON FOR 8-14 HOURS, THEN RINSE OFF 04/10 completed Not Available Not Available Not Available omeprazole 40 mg capsule,del ayed release TAKE 1 CAPSULE BY MOUTH ONCE DAILY 04/10 completed Not Available Not Available Not Available simvastatin 40 mg tablet TAKE 1 TABLET BY MOUTH NIGHTLY AT BEDTIME active Not Available Not Available No t Available OneTouch Ultra Test strips USE TO CHECK BLOOD GLUCOSE DAILY FOR DIABETES active Not Available Not Available No t Available amlodipine 10 mg tablet TAKE 1 TABLET BY MOUTH ONCE DAILY active Not Available Not Available No t Available sertraline 25 mg tablet TAKE ONE-HALF TABLET BY MOUTH ONCE DAILY FOR ONE WEEK, THEN INCREASE TO ONE TABLET DAILY THEREAFTE R 04/10 completed Not Available Not Available Not Available triamterene 37.5 mg-hydrochl orothiazide 25 mg tablet TAKE 1 TABLET BY MOUTH ONCE DAILY active Not Available Not Available No t Available mupirocin 2 % topical ointment APPLY A SMALL AMOUNT OF OINTMENT TOPICALLY TO THE AFFECTED AREA THREE TIMES DAILY FOR 7 DAYS active Not Available Not Available No t Available furosemide 20 mg tablet TAKE 1 TABLET BY MOUTH ONCE DAILY active Not Available Not Available No t Available nystatin 100,000 unit/gram topical powder APPLY TO THE AFFECTED AREA(S) BY TOPICAL ROUTE 2 TIMES PER DAY 2022 active Not Available Not Available Not Avai lable ibuprofen 600 mg tablet TAKE 1 TABLET BY MOUTH EVERY 6 HOURS NEEDED FOR PAIN 04/10 completed Not Available Not Available Not Available benazepril 40 mg tablet TAKE 1 TABLET BY MOUTH ONCE DAILY active Not Available Not Available No t Available methylpredn isolone 4 mg tablets in a dose pack TAKE BY MOUTH DIRECTED ON INSIDE OF PACKAGE 04/10 completed Not Available Not Available Not Available [...] ALLOW TABLET TO DISSOLVE ON THE TONGUE. 04/10 completed Not Available Not Available Not Available fluticasone propionate 50 mcg/actuati on nasal spray,suspe nsion USE 1 SPRAY(S) IN EACH NOSTRIL ONCE DAILY 04/10 completed Not Available Not Available Not Available metformin ER 500 mg tablet,exte nded release 24 hr TAKE 2 TABLETS BY MOUTH ONCE DAILY WITH BREAKFAST active Not Available Not Available No t Available oxycodone 5 mg tablet TAKE 1 TABLET BY MOUTH EVERY 4 HOURS NEEDED FOR PAIN 04/10 completed Not Available Not Available Not Available nitrofurant oin monohydrate /macrocryst als 100 mg capsule TAKE 1 CAPSULE BY MOUTH EVERY 12 HOURS FOR 5 DAYS WITH FOOD 06/13 completed Not Available Not Available Not Available fluticasone propionate 230 mcg-salmete rol 21 mcg/actuati on HFA inhaler INHALE 2 PUFFS BY MOUTH TWICE DAILY 04/10 completed Not Available Not Available Not Available levocetiriz ine 5 mg tablet TAKE 1 TABLET BY MOUTH ONCE DAILY active Not Available Not Available No t Available OneTouch Ultra2 Meter USE TO CHECK BLOOD GLUCOSE DAILY FOR DIABETES active Not Available Not Available No t Available OneTouch Delica Plus Lancet 33 gauge USE 1 TO CHECK GLUCOSE ONCE DAILY active Not Available Not Available No t Available Vitals Date Recorded Body height Body mass index (BMI) Body weight Systolic blood pressure Diastolic blood pressure Provider Name and Address Organization Details Last Updated DateTime 07/06/2022 165.1 cm 34.9 kg/m2 20437.4 g 128 mm[Hg] 78 mm[Hg] Sophia [facility] 3 15:55:55 Date Recorded Body height Body mass index (BMI) Body weight Systolic blood pressure Diastolic blood pressure Provider Name and Address Organization Details Last Updated DateTime 07/19/2022 165.1 cm 34.8 kg/m2 16006.81 g 129 mm[Hg] 74 mm[Hg] [facility] 3 15:52:10 Date Recorded Body height Body mass index (BMI) Body weight Systolic blood pressure Diastolic blood pressure Provider Name and Address Organization Details Last Updated DateTime 08/01/2022 165.1 cm 35.4 kg/m2 16245.17 g 149 mm[Hg] 80 mm[Hg] [facility] 3 16:41:05 Date Recorded Body height Body mass index (BMI) Body weight Systolic blood pressure Diastolic blood pressure Provider Name and Address Organization Details Last Updated DateTime 04/10/2023 165.1 cm 35.6 kg/m2 90253.77 g 160 mm[Hg] 78 mm[Hg] Andressa Simon [facility] 3 16:04:06 Social History Question Answer Notes LastModified by Organizat ion Details LastModified Time Tobacco Smoking Status [facility] 06/13/2022 16:39:41 Are You Blind Or Do You Have Difficulty Seeing? No [email or web address] Information n ot available 04/10/2023 In The 14 Days Before Symptom Onset, Have You Had Close Contact With A Laboratory-confirm ed COVID-19 While That Case Was Ill? No [email or web address] Information n ot available 04/10/2023 In The 14 Days Before Symptom Onset, Have You Had Close Contact With A Person Who Is Under Investigation For COVID-19 While That Person Was Ill? No [email or web address] Information not available 04/10/2023 Have You Been To An Area Known To Be High Risk For COVID-19? No [email or web address] Information not available 04/10/2023 Are You Deaf Or Do You Have Serious Difficulty Hearing? No [email or web address] Information not available 04/10/2023 What Type Of Diet Are You Following? DIABETIC [email or web address] Information n ot available 04/10/2023 Do You Use Your Seat Belt Or Car Seat Routinely? Yes [email or web address] Information not available 04/10/2023 Do You Have Smoke And Carbon Monoxide Detectors In Your Home? Yes [email or web address] Information not available 04/10/2023 How Much Tobacco Do You Smoke? No Information not available 06/13/2022 Do You Feel Stressed (tense, Restless, Nervous, Or Anxious, Or Unable To Sleep At Night)? [id number] [email or web address] Information not available 04/10/2023 Do You Use Any Illicit Or Recreational Drugs? No Information not available 06/13/2022 Do You Use Sunscreen Routinely? Yes [email or web address] Information not available 04/10/2023 Has Tobacco Cessation Counseling Been Provided? No Information not available 06/13/2022 Do You Or Have You Ever Used Any Other Forms Of Tobacco Or Nicotine? No Information not available 06/13/2022 Sex: Unknown Functional Status Question Answer Note LastModified by Organizat ion Details LastModified Time Do you have difficulty walking or climbing stairs? No [email or web address] Information not available 04/10/2023 Are you able to walk? YESWOREST [email or web address] Information not available 04/10/2023 Are you able to care for yourself? Yes [email or web address] Information not available 04/10/2023 Do you have difficulty dressing or bathing? No [email or web address] Information not available 04/10/2023 What is your exercise level? Occasional Information not available 04/10/2023 Mental Status None recorded. Family History Relationship Description Onset Age of this Age Resolved Age Notes LastModified by Organization Details LastModified Time Father Asthma [email or web address] Not available 16:49:04 Father Heart disease [email or web address] Not available 2022 16:49:15 Father Hypertensive disorder [email or web address] Not available 04/10 15:21:44 Sister Diabetes mellitus [email or web address] Not available 2022 16:49:23 Sister Genetic disease [email or web address] Not available 2022 16:49:44 Sister Hypercholest erolemia [email or web address] Not available 2022 16:49:58 Mother Hypercholest erolemia [email or web address] Not available 2022 16:49:58 Mother Cyst of ovary [email or web address] Not available 2022 16:50:14 Brother Hypertensive disorder [email or web address] Not available 04/10 15:21:44 Brother Disorder of lung Not available 04/10 15:22:11 Maternal Grandmother Dementia [email or web address] Not available 15:22:37 Paternal Grandmother Dementia [email or web address] Not available 15:22:37 Unspecified Relation Sickle cell-hemoglo bin SS disease niece [email or web address] Not available 04/10 15:23:03 Medical History Condition Response Allergies (Food, seasonal, environmental ) Y Other N Breast Cancer N Drug/Latex Allergies/Reactions Y Blood Transfusion N Dermatologic Disorders N Lung Disease Y Defects or Inherited Disease N Breast Problem N Gestational Diabetes N Hematologic disorders N Anesthesia Complications N History of STI N Deep Vein Thrombosis N Polycystic ovary syndrome N Anxiety Disorder Y Autoimmune disease N Arthritis Y Infertility Y Polyps N Acid Reflux (GERD) Y History of abnormal pap N Cancer Y Stroke Y Varicosities N Neurologic/Epilepsy Y Endometriosis N High Cholesterol Y Headaches N Fibromyalgia N Kidney Disease N Heart Problems Y Kidney or Bladder Problems N Thyroid Problems N GI Problems Y Eating Disorder N Anemia N Art (IVF or FET) N Psychiatric Illness N Ovarian Cancer N Diabetes Y Pulmonary (TB, Asthma) Y Hepatitis/Liver Disease Y No Past Medical History N Eczema N Urinary Tract Infection N Abuse/Domestic Violence N Asthma Y Trauma/Violence N Depression/ depression Y Heart Disease Y Pre-Eclampsia N Hypertension Y Osteoporosis N Thrombophilias N Gynecological History Statement/Question Response Abnormal Pap N Date of Last Colonoscopy Date of Last Mammogram Date of LMP 05/22/1995 STIs/STDs N Date of DEXA bone scan Date of Last Pap Smear Current Control Method Menopause Desired Control Method Hysterectom y Obstetrics History GPAL:G 0 P 0 0 0 0 Past Encounters Encounter ID Performer Location Encounter Start Date Encounter Closed Date Diagnosis/Indication Diagnosis SNOMED-CT Code Diagnosis ICD10 Code Diagnosis Note [id number] Gwen Conteh MD [facility] [address],[place] [address] 06/13/2022 15:45:22 06/14/2022 15:15:35 Endometrium thickened 717457080 R93.89 Heavy tobacco smoker 114 4180593 35244 Z72.0 Uterine leiomyoma 001269 05 D25.9 [id number] Alanna Waters [facility] [address],[place] [address] 06/28/2022 15:25:12 07/05/2022 15:18:40 Endometrium thickened 076713375 R93.89 D25.9 [id number] Gwen Conteh MD [facility] [address],[place] [address] 07/06/2022 15:35:01 07/06/2022 17:56:24 Endometrium thickened 428037527 R93.89 D25.9 Candidal intertrigo 2661 95854 B37.2 [id number] Gwen Conteh MD [facility] [address],[place] [address] 07/19/2022 15:28:49 07/22/2022 11:14:14 Preoperative state 10382599 Z78.9 Endometrium thickened 44 0162730 R93.89 D25.9 [id number] Gwen Conteh MD [facility] [address],[place] [address] 08/01/2022 16:04:25 08/02/2022 10:27:20 Endometrium thickened 627399760 R93.89 D25.9 Endometrial carcinoma 25 3749196 C54.1 [id number] CAMERON Alva [facility] [address],[place] [address] 04/10/2023 15:35:44 04/11/2023 09:32:44 Vulval irritation 935687857 N90.89 vaginitis panel sent per pt requestrx sent, nystatin ointmentve g based moisturize r routine discussedv ulvar care guidelines reviewed Skin lesion 39398377 L98 .9 cx sentrecomm ended dermatolog ist consult for skin checkrefer ral placed, encouraged to check insurance for coverage and notify office with any questions/ concerns Candidiasis of skin 4988 3006 B37.2 rx sent, use under breast and pannusBP precaution s discussed, encouraged to f/u with PCP Time spent in visit is a total of 40 mins with at least 50% of visit consisting of counseling and review of plan of care. Health Concerns Section Related Observation LastModified by Organization Detai ls LastModified Time None Recorded Concern Status LastModified by Organization Details LastModified Time None Recorded Advance Directives Directive None Recorded Payers Encounter Date Sequence Insurance Name Policy Number Policy Shen Covered Member ID Shen Member ID Guarantor Name 07/06/2022 2 [place] [facility] Lissy Hernández [id number] Lissy Edgar 07/06/2022 1 [facility] (MEDICARE REPLACEMENT/A DVANTAGE - HMO) [id number] Lissy Hernández [id number] Lissy Edgar 07/19/2022 2 [place] [facility] Hern[facility]dez [id number] [facility]/2022 1 [facility] (MEDICARE REPLACEMENT/A DVANTAGE - HMO) [id number] Lissy Hernández [id number] Lissy Edgar 08/01/2022 2 [place] [facility] Lissy Hernández [id number] Lissy Edgar 08/01/2022 1 [facility] (MEDICARE REPLACEMENT/A DVANTAGE - HMO) [id number] Lissy Hernández [id number] Lissy Edgar 04/10/2023 2 [place] [facility] Lissy Hernández [id number] [facility] 04/10/2023 1 [facility] (MEDICARE REPLACEMENT/A DVANTAGE - HMO) [id number] Lissy Hernández [id number] Lissy Hernández Notes Date Note Type Note Provider Name and Address Organization Details Recorded Time 3 text/html here for follow up thickened endometrium on CT scan. Had US last week which showed 2.4cm cystic and vascular endometrium, along with multiple exophytic fibroids, normal adnexae. no bleeding or pain. she does complain of itchy red rash under pannus and breasts. [place] powder helps some but not enough. Gwen Conteh MD [address], [place], [address], [facility] 07/06/2022 17:48:54 3 text/html 71yo G0 with 2cm endometrial complex on US. Cervical stenosis and unable to do EMB in office. No bleeding. [facility] next week. Gwen Conteh MD [address], [place], [address], [facility] 07/22/2022 09:49:39 3 text/html post op D and C 07/25. Had diarrhea after, resolved. Started some vaginal bleeding this weekend, spotting or a little heavier, now stopped. no pain. path: at least atypical complex hyperplasia and highly likely to be endometriod carcinoma Gwen Conteh MD [address], [place], [address], [facility] 08/01/2022 18:47:45 3 text/html 72yopresents for evaluation of vulvar irritationnoticed a prickly feeling on and off on the vulva. Request testing for BV/yeastneg d/c, odors, or itchingitching/redness under breast and pannusprone to yeast infections with her diabetessore spot on buttock/ near tail bone area, sore when sitting (denies any exudate) neg n/v/fneg flu-like symptomsNot SA TLH, BSO w/ gyne onco 6 months ago for complex hyperplasia CAMERON Alva [address], [place], [place], [id number], [facility] 04/11/2023 09:13:38 OBGyn Episode No OBEpisode recorded.
--- OUTSIDE RECORDS SUMMARY | 2024-06-13 11:24 | XMS_ITS ---
Author Organization [facility] [address] Address [address] [place] [address] Care Team Providers Care Equipment Washer Name Role Phone Zhou Garcia DO Primary Care Provide r Active Problems Problem Noted Date Diagnosed Date H/O prosthetic aortic valve replacement 01/28/20 22 Achalasia 08/03/2021 Overview (08/03/2021): Added automatically from request for surgery [id number] Tobacco dependence syndrome 08/07/2020 Pacemaker lead malfunction 06/26/2020 Overview (07/19/2021): Added automatically from request for surgery [id number] Added automatically from request for surgery [id number] Esophageal dysphagia 06/26/2020 Overview (07/03/2020): Added automatically from request for surgery [id number] Heart block 06/17/2020 S/P placement of cardiac pacemaker 05/25/2020 Atrioventricular block, complete (CMS/HCC) 05/08 Acute congestive heart failure (CMS/HCC) Chronic obstructive pulmonary disease (CMS/HCC) 05/08/2020 Hypercalcemia 05/08/2020 Presence of cardiac pacemaker 05/08/2020 Overview (03/30/2022): Biotronik Edora Dual Pacemaker. Dx; AV Block complete. DOI 05/08/2020-Dr. Silvestre/Judy. Biotronik remote monitoring. 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 09/2019 Nonrheumatic aortic valve stenosis 06/20/2019 Rosacea 06/09/2019 Type 2 diabetes mellitus wit hout complication, without long-term current use of insulin ([facility]) 04/23/2019 Chronic renal failure syndrome 04/23/2019 Hyperlipidemia 04/23/2019 Esophageal dysphagia 01/06/2019 Overview (07/19/2021): Added automatically from request for surgery [id number] Heart murmur 01/06/2019 Tobacco use disorder 01/06/2019 Medical non-compliance 11/27/2018 Hypertension 05/03/2018 Transient ischemic attack 05/03/2018 Encounter for other preprocedural examination Current Oncology Plans No current plan information found. Past Plans No past plan information found. Radiation Treatments * No radiation treatments are documented for this patient in [facility]. Treatments may have been administered in another system. Lifetime Dose Tracking * Chemical Lifetime Dose Automatic Entry Manual Entr y Fluoro Time 20.9 minutes 20.9 minutes 0 minutes Air kerma at the reference point (Ka,r) 324.52 mGy 3 9.52 mGy 285 mGy
--- OUTSIDE RECORDS SUMMARY | 2024-06-13 11:24 | XMS_ITS | CONTINUITY OF CARE DOCUMENT ---
Author Name mini morse Address Unknown Organization [facility] Address [address] [address] [place] [address] Phone [phone] Care Team Providers Care Geothermal Electrical Engineer Name Role Phone Jase Silvestre MD Unavailable Thompson Mathew MD Unavailable Thompson Mathew MD Unavailable PROBLEMS Condition Status Date Provider Notes S/P Dual chamb PCM - Biotronik ( MRI safe) active 2019 Trina Beltran Achalasia active Jase Silvestre MD COPD active Sundar Kyte TIA active Sundar Kyte CKD active Sundar Kyte Diabetes mellitus active Sundar Kyte HTN essential active Sundar Kyte Tobacco abuse active Jase Silvestre MD Aortic stenosis, severe s/p bioprosthetic AV 07/12 active Sundar Kyte Complete heart block S/P Bio tronik dc (MRI Safe) pm active Jase Silvestre MD ENCOUNTERS Date Type Provider Location Encounter Diag nosis - In-person encounter Office Visit Jase Silvestre MD [facility] Achalasia - In-person encounter Office Visit Jase Silvestre MD [facility] Complete heart block S/P Biotronik dc (MRI Safe) pmAortic stenosis, severe s/p bioprosthetic AV 07/12Tobacco abuseHTN essentialDiabetes mellitusCKDTIACOPD VITAL SIGNS Date Observation Value Provider Body Mass Index (Ratio) 35.83 kg/m2 Natali Loyd blood pressure, diastolic 86 mm[Hg] Sa ra Chaney blood pressure, systolic 140 mm[Hg] Rex a Chaney oxygen saturation, oximetry 96 % Lalitha Chaney respiratory rate E&M 16 /min Lalitha Si ms pulse rate 99 /min Lalitha Chaney weight E&M 222 [lb_av] Lalitha Chaney blood pressure, cuff size regular Soheila Kelly height E&M 66 [in_i] Canelo lopez Body Mass Index (Ratio) 34.54 kg/m2 Francisco Javier Branch blood pressure, diastolic 86 mm[Hg] Rh onnguyen Siegel blood pressure, systolic 130 mm[Hg] Rho ndmanuel Siegel blood pressure, resting Yes Etelvinan nguyen Siegel blood pressure, cuff size regular Ibrahima Siegel oxygen saturation, oximetry 98 % Blossom Siegel pulse rate 93 /min Blossom Siegel respiratory rate E&M 18 /min Blossom Siegel height E&M 66 [in_i] Blossom Siegel weight E&M 214 [lb_av] Blossom Siegel ALLERGIES Allergy Name Onset Date Reaction Criticality Status PENICILLIN High Criticality active HISTORY OF MEDICATION USE Medication Status Instructions Dates Provider Indications Com faye HUFF M20 20 MEQ ORAL TABLET EXTENDED RELEASE active TAKE 1 TABLET BY MOUTH ONCE DAILY Blossom Siegel #90, 90 days supply, Prescribed by THOMPSON MATHEW, Filled 04/17/2020 PANTOPRAZOLE SODIUM 40 MG ORAL TABLET DELAYED RELEASE active TAKE 1 TABLET BY MOUTH ONCE DAILY Blossom Siegel #30, 30 days supply, Prescribed by THOMPSON MATHEW, Filled 05/25/2020 ONDANSETRON 4 MG ORAL TABLET DISINTEGRATING active DISSOLVE 1 TABLET IN MOUTH EVERY 8 HOURS NEEDED FOR NAUSEA Blossom Siegel #20, 7 days supply, Prescribed by THOMPSON MATHEW, Filled 05/25/2020 AMLODIPINE BESYLATE 5 MG ORAL TABLET active 1 tab daily Jase Silvestre MD #90, 90 days supply, Prescribed by THOMPSON MATHEW, Filled 06/16/2020 BENAZEPRIL HCL 40 MG ORAL TABLET active 1 tab daily Jase Silvestre MD #90, 90 days supply, Prescribed by THOMPSON MATHEW, Filled 06/17/2020 SIMVASTATIN 40 MG ORAL TABLET active TAKE 1 TABLET BY MOUTH NIGHTLY AT BEDTIME Blossom Siegel #90, 90 days supply, Prescribed by THOMPSON MATHEW, Filled 07/16/2020 FUROSEMIDE 20 MG ORAL TABLET active TAKE 1 TABLET BY MOUTH ONCE DAILY Blossom Siegel #30, 30 days supply, Prescribed by THOMPSON MATHEW, Filled 07/16/2020 OMEPRAZOLE 40 MG ORAL CAPSULE DELAYED RELEASE active TAKE 1 CAPSULE BY MOUTH ONCE DAILY Blossom Siegel #30, 30 days supply, Prescribed by KATHY CALDERON, Filled 07/21/2020 METFORMIN HCL ER 500 MG ORAL TABLET EXTENDED RELEASE 24 HOUR active TAKE 2 TABLETS BY MOUTH ONCE DAILY Blossom Siegel #180, 90 days supply, Prescribed by THOMPSON MATHEW, Filled 07/21/2020 SOCIAL HISTORY Date Observation Value Provider social history reviewed E&M revi ewed - no changes required Jsae Silvestre MD social history E&M S moking History: P atient currently smokes every day. P atient has been counseled to quit. Jase Silvestre MD social history reviewed E&M revi ewed - no changes required Jase Silvestre MD smoking/tobacco cess ation, patient education and counseling yes Jase Silvestre MD number of grandchildren Jase Silvestre MD cigarette use yes Blossom Siegel smoking status Current every day smoker R jimmie Siegel INSURANCE PROVIDERS Payer name Policy type / Coverage type Judi red constitution party ID UHC MEDICARE COMPLETE HMO Other [id number] ADVANCE DIRECTIVES Name Date DISCUSSED - NO DECISION MADE TREATMENT PLAN Date Name Performer [id number],S, S TRONGLY ENCOURAGED TO STOP SMOKING; SMOKING CESSATION TECHNIQUES DISCUSSED. Valentina Rach [id number],S, C ontinues on Metformin. Reduced intake of carbohydrates and sugars advised. Valentina Rach [id number],S, P er hospital records. Unclear why she is not on Aspirin. Valentina Rach [id number],C, D evice check today showed 0% AT/AF burden, 4 episodes of Afib. % pacing : RA:2%, RV: 99%. Valentina Rach [id number],S, s /p recent open aortic valve replacement. The incision is healing well. She continues to follow with CT surgery. Valentina Rach [id number],S, P er hospital records. Unclear why she is not on Aspirin. Jase Silvestre MD [id number],S, S CARMINALY ENCOURAGED TO STOP SMOKING; SMOKING CESSATION TECHNIQUES DISCUSSED. Jase Silvestre MD [id number],S, C ontinues on Metformin. Reduced intake of carbohydrates and sugars advised. Jase Silvestre MD Cardiology: S CARMINALY ENCOURAGED TO STOP SMOKING; SMOKING CESSATION TECHNIQUES DISCUSSED. Valentina Loyd Cardiology: C ontinues on Metformin. Reduced intake of carbohydrates and sugars advised. Valentina Loyd Cardiology: P er hospital records. Unclear why she is not on Aspirin. Valentina Loyd Cardiology: D evice check today showed 0% AT/AF burden, 4 episodes of Afib. % pacing : RA:2%, RV: 99%. Valentina Loyd Cardiology: s /p recent open aortic valve replacement. The incision is healing well. She continues to follow with CT surgery. Valentina Marshallfrandy Cardiology: P er hospital records. Unclear why she is not on Aspirin. Jase Silvestre MD Cardiology: S BECKY ENCOURAGED TO STOP SMOKING; SMOKING CESSATION TECHNIQUES DISCUSSED. Jase Silvestre MD Cardiology: C ontinues on Metformin. Reduced intake of carbohydrates and sugars advised. Jase Silvestre MD Cardiology:Per hospi marcia records. Unclear why she is not on Aspirin. Sundar Branch Cardiology:Continues on Metformin. Reduced intake of carbohydrates and sugars advised. Sundar Branch Cardiology:Blood pre ssure control is satisfactory. Advised reduced sodium intake and routine monitoring of the blood pressure. We aim for blood pressure less than 130/80. Sundar Branch Cardiology:STRONGLY ENCOURAGED TO STOP SMOKING; SMOKING CESSATION TECHNIQUES DISCUSSED. Sundar Branch Cardiology:Well heal ed left upper chest incision. Will have device interrogated today. Sundar Branch Cardiology:s/p recen t open aortic valve replacement. The incision is healing well. She continues to follow with CT surgery. Sundar Branch HISTORY OF PROCEDURES Procedure Date Procedure Name Provider Procedure Notes S tatus EKG Jase Silvestre MD complet ed EKG Jase Silvestre MD complet ed
--- OUTSIDE RECORDS SUMMARY | 2024-06-13 11:24 | XMS_ITS | Referral Summary ---
Author Organization [facility] [address] Address [address] [place] [address] Care Team Providers Care Skill Labor Name Role Phone Zhou Garcia DO Primary Care Provide r Encounters Date Type Department Care Team Description 05/14/2024 Orders Only [facility] Medical [facility] Cardiology [address] [place] [address] [place] [phone] Murphy Kim MD Atrioventricular block, complete (CMS/HCC) (HCC) (Primary Dx); Presence of cardiac pacemaker 04/30/2024 7:30 AM BORDEREAU CLERK Ancillary Procedure [facility] Cardiology [address] [place] [address] [place] [phone] Atrioventricular block, complete (CMS/HCC) (HCC) from Last 3 Months Allergies Active Allergy Reactions Criticality Noted Date [...] for 2 weeks after surgery 10/09/19 Active benazepriL (LOTENSIN) 40 mg tabletIndications: hypertension Take 1 tablet (40 mg total) by mouth nightly Crush medications for 2 weeks after surgery 10/09/19 Active multivitamin tabletIndications: Vitamin Deficiency Prevention Take 1 tablet by mouth nightly Crush medications for 2 weeks after surgery 10/09/19 Active simvastatin (ZOCOR) 20 mg tablet Take [...] medications for 2 weeks after surgery 10/09/19 022 Discontin ued(Stop Taking at Discharge ) Active Problems Problem Noted Date Diagnosed Date H/O prosthetic aortic valve replacement 01/28/20 Achalasia 08/03/2021 Overview (08/03/2021): Added automatically from request for surgery [id number] Tobacco dependence syndrome 08/07/2020 Pacemaker lead malfunction 06/26/2020 Overview (07/19/2021): Added automatically from request for surgery [id number] Added automatically from request for surgery [id number] Esophageal dysphagia 06/26/2020 Overview (07/03/2020): Added automatically from request for surgery [id number] Heart block 06/17/2020 S/P placement of cardiac [...] (07/19/2021): Added automatically from request for surgery [id number] Added automatically from request for surgery [id number] Added automatically from request for surgery [id number] 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 09/2019 Nonrheumatic aortic valve stenosis 06/20/2019 Rosacea 06/09/2019 Type 2 diabetes mellitus wit hout complication, without long-term current use of insulin ([facility]) 04/23/2019 Chronic renal failure syndrome 04/23/2019 Hyperlipidemia 04/23/2019 Esophageal dysphagia 01/06/2019 Overview (07/19/2021): Added automatically from request for surgery [id number] Heart murmur 01/06/2019 Tobacco use disorder 01/06/2019 Medical non-compliance 11/27/2018 Hypertension 05/03/2018 Transient ischemic attack 05/03/2018 Encounter for other preprocedural examination Immunizations Name Administration Dates Next Due Influenza, Unspecified 04/21/2020 Social History Tobacco Use Types Packs/Day Years [...] often do you attend chur ch or pentecostal services? Never 07/02/2020 Do you belong to any clubs o r organizations such as oriental orthodox groups, unions, fraternal or athletic groups, or [...] place to sleep or slept in a usp (including now)? No 07/02/2020 Comments No Sex and Gender Information Value Date Recorded Sex Assigned at Not on file Legal Sex Female 4:15 AM BORDEREAU CLERK Gender Identity Not on file Sexual Orientation Not on file Last Filed Vital Signs Vital Sign Reading Time Taken Comments Blood Pressure 130/80 05/16/2023 1:46 PM BORDEREAU CLERK Pulse 66 05/16/2023 1:46 PM BORDEREAU CLERK Temperature 36.5 ??C (97.7 ??F) 10/08/2021 12:05 PM C DT Respiratory Rate 18 10/08/2021 12:05 PM CDT Oxygen Saturation 97% 05/16/2023 1:46 PM BORDEREAU CLERK Inhaled Oxygen Concentration - - Weight 97.5 kg (215 lb) 05/16/2023 1:46 PM BORDEREAU CLERK Height 167.6 cm (5' 6 ) 05/16/2023 1:46 PM BORDEREAU CLERK Body Mass Index 34.7 05/16/2023 1:46 PM BORDEREAU CLERK Plan of Treatment Not on file Medical Devices Implanted Type Area Metalizer Device Identifier Shelf Expiration Date Model / Serial / Lot Pacemaker- [id number] Implanted:2020 (Quantity not on file) Pacemaker N/A: Heart [employer] Biotronik Inc [id number] Promri Solia S 60cm Lead Pacing Steroid Eluting - [id number] - [id number] Implanted:Qty: 1 on 05/08/2020 by Jase Silvestre MD at [facility] Left: Chest Biotronik Inc 02/18/2022 [id number] / [id number] / Biotronik Inc [id number] Solia S 53cm Steroid Elute Bipolar Active Fixation Endocardial - [id number] - [id number] Implanted:Qty: 1 on 05/08/2020 by Jase Silvestre MD at [facility] Left: Chest Biotronik Inc 03/21/2022 [id number] / [id number] / Biotronik Inc [id number] Edora Promri 90i43v5.5mm Dual Chamber Rate Adaptive Unipolar Bipolar - [id number] - [id number] Implanted:Qty: 1 on 05/08/2020 by Jase Silvestre MD at [facility] Left: Chest Biotronik Inc 07/19/2021 [id number] / [id number] / [employer] [id number] Inspiris Resilia Leaflet Sewing Ring 23mm Valve Aortic Bovine - [id number] - [id number] Implanted:Qty: 1 on 07/01/2020 by Jesse Segura MD at [facility] N/A: Heart [employer] 01/15/2024 [id number] / [id number] / Procedures Procedure Name Priority Date/Time Associated Diagnosis Comments POCT LIPID PANEL Routine 05/16/2023 2:41 PM BORDEREAU CLERK Lipid screening EGFR Routine 09/20/2021 4:52 PM CDT Preoperative testing POCT HEMOGLOBIN A1C Routine 09/20/2021 4 :23 PM CDT from Last 3 Months or Most Recently Relevant to Health Maintenance Results * POCT lipid panel (05/16/2023 2:41 PM BORDEREAU CLERK) Cholesterol, POC 158 mg/dL HDL, POC 49 mg/dL Triglycerides, POC 262 mg/dL LDL Cholesterol POC 57 mg/dL Chol/HDL Ratio, POC 1.2 Non-HDL Cholesterol, POC 109 mg/dL Cholesterol Total, POC 158 mg/dL Capillary blood 05/16/2023 2 :41 PM BORDEREAU CLERK us Murphy Kim MD POINT OF CARE TEST ORDER YESENIA Final Result * (ABNORMAL) eGFR (09/20/2021 4:52 PM CDT) eGFR 31(L) 90 - 130 mL/min/1. 73 m2 [facility] Comment: Interpretive Data Reference Interval Normal ?>/= [...] of Race in Diagnosing Kidney Disease, JASN 2020). The CKD-EPI equation should not be used for patients with unstable renal function and has not been validated in children and those over 70. Current interpretive data was last reviewed 2021. Blood 09/20/2021 4:52 PM CDT 09/20/2021 5:36 PM CDT Odalys Thomas NP LAB BLOOD ORDERABLES F inal Result Performing Organization Address [facility] de Phone Number [facility] Department [place] [place] [address] * (ABNORMAL) POCT hemoglobin A1c (09/20/2021 4:23 PM CDT) Pathologist [facility] Hgb A1C, POC 6.7(H) 4.0 - 5.6 % [facility] Est Average Gluc POC 146 mg/dL [facility] Comment: The ADA recommends reporting an estimated Average Glucose (eAG) with all Hemoglobin A1c results using the equation derived from a study of 507 normal and diabetic adults. ??Minority populations were underrepresented and children were not included. ?? (Diabetes Care 31:4529-5105, 2008). ??The eAG is not equivalent to a fasting glucose. Blood 09/20/2021 4:23 PM CDT 09/20/2021 4:23 PM CDT Murphy Ellsworth MD PhD POINT OF CARE TEST ORD ERABLES Final Result Performing Organization Address [facility] de Phone Number [facility] [place] [place] [address] from Last 3 Months or Most Recently Relevant to Health Maintenance Insurance [employer] MEDICARE SOLUTIONS IDPA [facility] HMO REF MEDICARE SOLUTIONS Advance Directives For more information, please contact: [phone] * Full Code (Latest Code Status on File) Date Activated Date Inactivated Comments 10/07/2021 5:50 PM 10/08/2021 6:47 PM * Full Code Date Activated Date Inactivated Comments 07/01/2020 2:59 PM 07/07/2020 9:55 PM * Full Code Date Activated Date Inactivated Comments 05/08/2020 3:55 AM 05/09/2020 8:05 PM Care Teams Skill Labor Relationship Specialty Start Date End Date Zhou Garcia DO [address] [place] [id number] PCP - General Family Medicine 07/12/18
--- OUTSIDE RECORDS SUMMARY | 2024-06-13 11:25 | XMS_ITS | CONTINUITY OF CARE DOCUMENT ---
Author Name mini morse Address Unknown Organization [facility] Address [address] [place] [address] Phone [phone] Care Team Providers Care Colored Liquid Plastic Applier Name Role Phone Jase Silvestre MD Unavailable [phone] Thompson Mathew MD Unavailable Thompson Mathew MD Unavailable PROBLEMS Condition Status Date Provider Notes S/P Dual chamb PCM - Biotronik ( MRI safe) active 2019 Trina Beltran Complete heart block S/P Bio tronik dc (MRI Safe) pm active Jase Silvestre MD Aortic stenosis, severe s/p bioprosthetic AV 07/12 active Sundar Kyte Tobacco abuse active Jase Silvestre MD HTN essential active Sundar Jose Carlos Diabetes mellitus active Sundar Kyte CKD active Sundar Kyte TIA active Sundar Kyte COPD active Sundar Kyte Achalasia active Jase Silvestre MD ENCOUNTERS Date Type Provider Location Encounter Diag nosis - In-person encounter Office Visit [facility] Ach[facility] - In-person encounter Office [facility] Complete heart block S/P Biotronik dc [...] - no changes required Jase Silvestre MD social history E&M S moking [...] Policy type / Coverage type Judi red republican ID UHC MEDICARE COMPLETE HMO Other [id number] ADVANCE DIRECTIVES Name Date DISCUSSED - NO DECISION MADE TREATMENT PLAN Date Name Performer [id number],S, S TRONGLY ENCOURAGED TO STOP SMOKING; SMOKING CESSATION TECHNIQUES DISCUSSED. Valentina Rach [id number],S, C ontinues on Metformin. Reduced intake of carbohydrates and sugars advised. Valentina Rach [id number],S, P er hospital records. Unclear why she is not on Aspirin. Valentina Rach [id number],C, D evice check today showed 0% AT/AF burden, 4 episodes of Afib. % pacing : RA:2%, RV: 99%. Valentina Rach [id number],S, s /p recent open aortic valve replacement. The incision is healing well. She continues to follow with CT surgery. Valentina Rach [id number],S, P er hospital records. Unclear why she is not on Aspirin. Jase Silvestre MD [id number],S, S CARMINALY ENCOURAGED TO STOP SMOKING; SMOKING CESSATION TECHNIQUES DISCUSSED. Jase Silvestre MD [id number],S, C ontinues on Metformin. Reduced intake of [...]
== END 2024-06-10 10:42 | disposition home or self-care (01) ==
PROVIDERS: Emergency Provider Emergency Medicine; PCP Student in an Organized Health Care Education/Training Program
DX: R55 Syncope and collapse (principal); Z20.822 Contact with and (suspected) exposure to COVID-19; Z95.0 Presence of cardiac pacemaker
CPT/HCPCS: 36415; 71045; 80053; 83690; 83735; 84484; 85025; 85610; 85730; 87637; 93005; 99284; A9270

== ENCOUNTER 2024-10-30 12:51 | Emergency (ER) | payer MEDICARE, SELFPAY ==
[2024-10-30] VITALS (7 sets, daily range): BP systolic 114–158; BP diastolic 60–79; PULSE 69–86; RESP 14–20; TEMP 36.6–36.7; O2SAT 94–97
--- NOTE | ~2024-10-30 | XR_ITS ---
XR chest 1V portable 10/30/2024 15:48 Indication: Shortness of breath Procedure: AP portable chest Comparison: 06/10/2024 Findings: Status post median sternotomy for CABG. Borderline heart size. Status post median sternotom y for CABG. Pacemaker leads stable. There is a prosthetic heart valve. There is atelectasis left midl adrian. No focal pneumonia, edema, pleural effusion or pneumothorax. Impression: 1: No acute cardiopulmonary disease. Reviewed, dictated and finalized at location B. Impression: 1: No acute cardiopulmonary disease.
--- NOTE | 2024-10-30 13:55 | ED_ITS ---
HPI - Allergic Reaction General Chief complaint: Allergic Reaction Stated complaint: TOOK NEW MED THIS AM RASH,EYE SWELLING Time Seen by Provider: 10/30/24 13:42 History of Present Illness HPI narrative: 74-year-old female presenting with potential allergic reaction to sulfa. Patient states that she was just prescribed multiple medications including Farxiga, fluconazole and Bactrim. She was being treated for an upper respiratory/ear infection. She took 1 dose of Bactrim about 30 minutes prior to arrival and started developing numbness and tingling in her lips, lip swelling, scratchy throat and generalized rash. Has no history of anaphylaxis and does not carry an EpiPen she has a history of allergy to penicillins but no other antibiotics to her knowledge. Denies any trouble breathing, difficulty swallowing, chest pain, nausea, vomiting, abdominal pain, diarrhea. Was otherwise in her normal state of health. Related Data Allergies Allergy/AdvReac Type Severity Reaction Status Date / Time Penicillins Allergy Intermediate Unknown Verified 10/30/24 13:53 venom-wasp Allergy Intermediate Unknown Verified 10/30/24 13:53 bee venom protein (honey Allergy Mild Unknown Verified 10/30/24 13:53 bee) (bees) Sulfa (Sulfonamide Allergy Mild Hives Verified 10/30/24 13:53 Antibiotics) latex Allergy Unknown Verified 10/30/24 13:53 Review of Systems 2 Review of Systems: As reviewed above in HPI Exam 2 Narrative: GENERAL: [Well-appearing, well-nourished, and in no acute distress.] HEAD: [Normocephalic, atraumatic.] EYES: [PERRLA and EOMI.] ENT: Posterior oropharynx without any erythema, uvula is midline, base of tongue without swelling, no phonation changes, anterior lip mildly swollen NECK: Supple. CHEST: [Clear to auscultation. No respiratory distress.] HEART: [Regular rate and rhythm]. No murmur heard. [Normal peripheral pulses.] ABDOMEN: [Soft, nondistended], [nontender], [No rigidity or guarding] EXTREMITIES: Normal range of motion. [No edema.] SKIN: Urticarial rash to the face and neck NEURO: [No focal deficits]. Alert and oriented [x3.] PSYCH: [Normal mood and affect.] Course Vital Signs Vital signs: Vital Signs Temperature 36.6 C 10/30/24 13:00 Pulse Rate 86 06/11/25 13:00 Respiratory Rate 20 10/30/24 13:00 Blood Pressure 114/69 10/30/24 13:00 Pulse Oximetry 94 10/30/24 13:00 Oxygen Delivery Room Air 10/30/24 13:00 Temperature 36.7 C 10/30/24 13:43 Pulse Rate 76 10/30/24 18:20 Respiratory Rate 18 10/30/24 18:20 Blood Pressure 158/79 H 10/30/24 18:20 Pulse Oximetry 96 10/30/24 18:20 Oxygen Delivery Room Air 10/30/24 13:29 MDM - Allergic Reaction MDM Narrative Medical decision making narrative: 74-year-old female presenting with allergic reaction symptoms. She took a single dose of Bactrim about 30 minutes prior to arrival. She was prescribed this for an upper respiratory/your infection recently. She has an urticarial rash, anterior lip swelling but no phonation changes, difficulty swallowing oral secretions, base of tongue swelling or uvular edema. She has normal vital signs with any fever tachycardia, hypoxia blood pressure concerns. Patient is undergoing minor list reaction likely from the soft component of the Bactrim. Further medications she did not start yet and were counted at bedside. She was given a combination of allergic reaction medications such as Solu-Medrol, Pepcid, diphenhydramine and a fluid bolus. Basic laboratory studies drawn. Patient will be observed for symptomatic improvement and likely discharge home with Bactrim added to her allergy list. Patient observed for numerous hours here and had symptomatic improvement and resolution. Patient is hemodynamically stable, resolution of symptoms noted on reassessments and Bactrim added to her allergy list. She is safe for discharge home at this time. Encouraged to call her doctor tomorrow for changing her antibiotics regimen as indicated and she is given return precautions. Medical Records Attestation: I reviewed the patient's medical records. Lab Data Attestation: I reviewed the patient's lab results. 10/30/24 14:04 10/30/24 14:04 Labs: Lab Results 10/30/24 Range/Units 14:04 WBC 7.2 (4.5-10.0) K/mm3 RBC 4.52 (4.2-5.4) M/mm3 Hgb 14.2 (12.0-15.0) g/dL Hct 43.1 (37.0-47.0) % MCV 95.4 (80-100) fl MCH 31.4 (26-34) pg MCHC 32.9 (32-36) g/dl RDW 13.9 (11.5-14.5) % Plt Count 254 (150-375) k/mm3 MPV 9.2 (7.4-10.4) fl Immature Gran % (Auto) 0.4 (0-0.5) % Neut % (Auto) 64.6 (45.5-73.1) % Lymph % (Auto) 26.2 (18.3-44.2) % [place] % (Auto) 6.9 (2.6-8.5) % Eos % (Auto) 1.2 (0-4.4) % Baso % (Auto) 0.7 (0.2-1.2) % Lymph # (Auto) 1.89 (0.9-3.2) K/mm3 [place] # (Auto) 0.5 (0.1-0.6) K/mm3 Eos # (Auto) 0.1 (0-0.3) K/mm3 Baso # (Auto) 0.1 (0.0-0.1) K/mm3 Abs Immat Gran (auto) 0.03 (0.00-0.031) K/mm3 Absolute Neuts (auto) 4.7 (1.3-6.7) K/mm3 Absolute Nucleated RBC 0.000 (0.0-0.012) K/mm3 Nucleated RBC % 0.0 (0.0-0.2) % Sodium 141 (137-145) mmol/L Potassium 4.1 (3.4-5.0) mmol/L Chloride 106 (98-107) mmol/L Carbon Dioxide 24 (22-30) mmol/L Anion Gap 11 (4-12) mmol/L BUN 17 (7-17) mg/dL Creatinine 1.22 H (0.7-1.0) mg/dL Estim Creat Clear Calc 39 ml/min Estimated GFR 43 L (59 - ) Glucose 122 H (65-110) mg/dL Calcium 10.8 H (8.4-10.2) mg/dL Imaging Data Attestation: I personally reviewed and interpreted this imaging study as follows: My impression: Impressions Chest X-Ray 10/30/24 15:50 Impression: 1: No acute cardiopulmonary disease. Discharge Plan Discharge Clinical Impression: Allergic reaction, Adverse reaction to drug Patient Disposition: Home Condition: Stable Instructions: Antibiotic Form, Acute Rash (ED), Allergies (ED) Additional Instructions: Your symptoms are consistent with allergic reaction to the sulfa component of Bactrim. We have added this to her allergy list and gave you medications to treat allergic reactions. Return with any new or worsening concerns at any time, take Benadryl and Pepcid [id number] if you have any recurrence of your rash or itchiness. If you start feeling like her throat is closing, shortness of breath, any other the emergent concerns call 911 and return to the emergency department. Patient Language: Algerian Follow-up/Referrals: Radha,DO Zhou [Primary Care Provider] - Time of Disposition: 17:59
[2024-10-30] MEDS: SODIUM CHLORIDE 0.9% IV 1,000 ML 999 ML IV CONT ×2 (13:59→15:28)
[2024-10-30] MEDS: methylPREDNISolone SOD SUCC 125 MG VIAL IV PUSH (14:01)
[2024-10-30] MEDS: FAMOTIDINE 20 MG/2 ML VIAL IV PUSH (14:01)
[2024-10-30] MEDS: diphenhydrAMINE HCl INJ 50 MG/ML VIAL IV PUSH (14:01)
[2024-10-30 14:09] LABS: Basophils Absolute Auto 0.1 K/mm3 (0.0-0.1); Basophils Percent Auto 0.7 % (0.2-1.2); Eosinophils Absolute Auto 0.1 K/mm3 (0-0.3); Eosinophils Percent Auto 1.2 % (0-4.4); Hematocrit 43.1 % (37.0-47.0); Hemoglobin 14.2 g/dL (12.0-15.0); Immature Granulocyte Absolute 0.03 K/mm3 (0.00-0.031); Immature Granulocyte Percent A 0.4 % (0-0.5); Lymphocytes Absolute Auto 1.89 K/mm3 (0.9-3.2); Lymphocytes Percent Auto 26.2 % (18.3-44.2); Mean Corpuscular HGB Conc 32.9 g/dl (32-36); Mean Corpuscular Hemoglobin 31.4 pg (26-34); Mean Corpuscular Volume 95.4 fl (80-100); Mean Platelet Volume 9.2 fl (7.4-10.4); Monocytes Absolute Auto 0.5 K/mm3 (0.1-0.6); Monocytes Percent Auto 6.9 % (2.6-8.5); Neutrophils Absolute Auto 4.7 K/mm3 (1.3-6.7); Neutrophils Percent Auto 64.6 % (45.5-73.1); Platelet Count Result 254 k/mm3 (150-375); Red Blood Count 4.52 M/mm3 (4.2-5.4); Red Cell Distribution Width 13.9 % (11.5-14.5); White Blood Count 7.2 K/mm3 (4.5-10.0)
[2024-10-30 14:46] LABS: Anion Gap 11 mmol/L (4-12); Blood Urea Nitrogen 17 mg/dL (7-17); Calcium 10.8 mg/dL (8.4-10.2); Carbon Dioxide 24 mmol/L (22-30); Chloride 106 mmol/L (98-107); Estimated CRCL calculation 39 ml/min; Estimated Glomerular Filt Rate 43; Glucose 122 mg/dL (65-110); Potassium 4.1 mmol/L (3.4-5.0); Sodium 141 mmol/L (137-145)
--- OUTSIDE RECORDS SUMMARY | 2024-10-30 14:53 | XMS_ITS ---
Author Organization [facility] [place] [address] Address [address] [place] [address] Care Team Providers Care Design Verification Engineer Name Role Phone Zhou Garcia Primary Care Provide r Active Problems Problem Noted Date Diagnosed Date H/O prosthetic aortic valve replacement 01/28/20 22 Achalasia 08/03/2021 Overview (08/03/2021): Added automatically from request for surgery [id number] Tobacco dependence syndrome 08/07/2020 Pacemaker lead malfunction 06/26/2020 Overview (07/19/2021): Added automatically from request for surgery [id number] Added automatically from request for surgery [id number] Esophageal dysphagia 06/26/2020 Overview (07/03/2020): Added automatically from request for surgery [id number] Heart block 06/17/2020 S/P placement of cardiac pacemaker 05/25/2020 Atrioventricular block, complete (CMS/HCC) 05/08 Acute congestive heart failure 05/08/2020 Chronic obstructive pulmonary disease (CMS/HCC) 05/08/2020 Hypercalcemia 05/08/2020 Presence of cardiac pacemaker 05/08/2020 Overview (03/30/2022): Biotronik Edora Dual Pacemaker. Dx; AV Block complete. DOI 05/08/2020-Dr. Silvestre/Judy. Biotronik remote monitoring. 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 09/2019 Nonrheumatic aortic valve stenosis 06/20/2019 Rosacea 06/09/2019 Type 2 diabetes mellitus wit hout complication, without long-term current use of insulin ([facility]) 04/23/2019 Chronic renal failure syndrome 04/23/2019 Hyperlipidemia 04/23/2019 Esophageal dysphagia 01/06/2019 Overview (07/19/2021): Added automatically from request for surgery [id number] Heart murmur 01/06/2019 Tobacco use disorder 01/06/2019 Medical non-compliance 11/27/2018 Hypertension 05/03/2018 Transient ischemic attack 05/03/2018 Encounter for other preprocedural examination Current Treatment and Therapy Plans No current plan information found. Past Treatment and Therapy Plans No past plan information found. Lifetime Dose Tracking * Chemical Lifetime Dose Automatic Entry Manual Entr y Fluoro Time 20.9 minutes 20.9 minutes 0 minutes Air kerma at the reference point (Ka,r) 324.52 mGy 3 9.52 mGy 285 mGy
--- OUTSIDE RECORDS SUMMARY | 2024-10-30 14:53 | XMS_ITS | Referral Summary ---
Author Organization [facility] [place] [address] [facility] [address] [place] [address] Care Team Providers Care Needle Polisher Name Role Phone Zhou Garcia Primary Care Provide r Encounters Date Type Department Care Team Description 08/28/2024 1:00 PM CDT Ancillary Procedure [facility] [address] [place] [address] [address] [place] [address] Atrioventricular block, complete (HCC); Presence of cardiac pacemaker from Last 3 Months Allergies Active Allergy [...] (08/03/2021): Added automatically from request for surgery [id number] Tobacco dependence syndrome 08/07/2020 Pacemaker lead malfunction 06/26/2020 Overview (07/19/2021): Added automatically from request for surgery [id number] Added automatically from request for surgery [id number] Esophageal dysphagia 06/26/2020 Overview (07/03/2020): Added automatically from request for surgery [id number] Heart block 06/17/2020 S/P placement of cardiac [...] (07/19/2021): Added automatically from request for surgery [id number] Added automatically from request for surgery [id number] Added automatically from request for surgery [id number] 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 09/2019 Nonrheumatic aortic valve stenosis 06/20/2019 Rosacea 06/09/2019 Type 2 diabetes mellitus wit hout complication, without long-term current use of insulin ([facility]) 04/23/2019 Chronic renal failure syndrome 04/23/2019 Hyperlipidemia 04/23/2019 Esophageal dysphagia 01/06/2019 Overview (07/19/2021): Added automatically from request for surgery [id number] Heart murmur 01/06/2019 Tobacco use disorder 01/06/2019 Medical non-compliance 11/27/2018 Hypertension 05/03/2018 Transient ischemic attack 05/03/2018 Encounter for other preprocedural examination Immunizations Immunization Administration Dates Next Due Influenza, Unspecified 04/21/2020 Social History Tobacco Use Types Packs/Day Years Used Date Smoking Tobacco: Every Day Cigarettes 1 57.4 Started: 1968 Smokeless Tobacco: Never Tobacco Cessation:Ready [...] often do you attend chur ch or adventist services? Never 07/02/2020 Do you belong to any clubs o r organizations such as worship groups, unions, fraternal or athletic groups, or [...] place to sleep or slept in a retirement (including now)? No 07/02/2020 Comments No Sex and Gender Information Value Date Recorded Sex Assigned at Not on file Legal Sex Female 4:15 AM EXAMINER RATING CLERK Gender Identity Not on file Sexual Orientation Not on file Last Filed Vital Signs Vital Sign Reading Time Taken Comments Blood Pressure 130/80 05/16/2023 1:46 PM EXAMINER RATING CLERK Pulse 66 05/16/2023 1:46 PM EXAMINER RATING CLERK Temperature 36.5 C (97.7 F) 10/08/2021 12:05 PM CDT Respiratory Rate 18 10/08/2021 12:05 PM CDT Oxygen Saturation 97% 05/16/2023 1:46 PM EXAMINER RATING CLERK Inhaled Oxygen Concentration - - Weight 97.5 kg (215 lb) 05/16/2023 1:46 PM EXAMINER RATING CLERK Height 167.6 cm (5' 6) 05/16/2023 1:46 PM EXAMINER RATING CLERK Body Mass Index 34.7 05/16/2023 1:46 PM EXAMINER RATING CLERK Plan of Treatment Not on file Medical Devices Implanted Type Area Manager Infrastructure Device Identifier Shelf Expiration Date Model / Serial / Lot Pacemaker- [id number] Implanted:2020 (Quantity not on file) Pacemaker N/A: Heart Medtr[employer] Biotronik Inc [id number] Promri Solia S 60cm Lead Pacing Steroid Eluting - [id number] - [id number] Implanted:Qty: 1 on 05/08/2020 by Jase Silvestre MD at [facility] Left: Chest Biotronik Inc 02/18/2022 [id number] / [id number] / Biotronik Inc [id number] Solia S 53cm Steroid Elute Bipolar Active Fixation Endocardial - [id number] - [id number] Implanted:Qty: 1 on 05/08/2020 by Jase Silvestre MD at [facility] Left: Chest Biotronik Inc 03/21/2022 [id number] / [id number] / Biotronik Inc [id number] Edora Promri 73e86h0.5mm Dual Chamber Rate Adaptive Unipolar Bipolar - [id number] - [id number] Implanted:Qty: 1 on 05/08/2020 by Jase Silvestre MD at [facility] Left: Chest Biotronik Inc 07/19/2021 [id number] / [id number] / [employer] [id number] Inspiris Resilia Leaflet Sewing Ring 23mm Valve Aortic Bovine - [id number] - [id number] Implanted:Qty: 1 on 07/01/2020 by Jesse Segura MD at [facility] N/A: Heart [employer] 01/15/2024 [id number] / [id number] / Procedures Procedure Name Priority Date/Time Associated Diagnosis Comments DEVICE CHECK - IN OFFICE Routine 08/28/2024 12:54 PM CDT Atrioventricular block, complete (HCC) Presence of cardiac pacemaker POCT LIPID PANEL Routine 05/16/2023 2:41 PM EXAMINER RATING CLERK Lipid screening EGFR Routine 09/20/2021 4:52 PM CDT Preoperative testing POCT HEMOGLOBIN A1C Routine 09/20/2021 4 :23 PM CDT from Last 3 Months or Most Recently Relevant to Health Maintenance Results * DEVICE CHECK - IN OFFICE (08/28/2024 12:54 PM CDT) Anatomical Region Laterality Modality Other Narrative 08/29/2024 8:26 AM CDT Biotronik Edora Dual Pacemaker. Dx; AV Block complete. DOI 05/08/2020-Dr. Silvestre/Judy. Biotronik remote monitoring. Supervising MD: Dr Gardiner. Office DDD Pacemaker evaluation demonstrated appropriate device function. Left pectoral incision well healed without signs of infection noted. Battery function-Ok, 6.0 years and 3 months remaining battery longevity to RAVEN. Appropriate lead measurements noted. Presenting rhythm: -SENIOR COMMUNICATIONS ENGINEER with PVC's. Underlying rhythm-CHB no v-escape @ DDI 30 bpm. Consider Pacemaker Dependent. AP-18%, SENIOR COMMUNICATIONS ENGINEER-96%. No Atrial high rate episodes noted. No Ventricular high rate episodes noted. Medications; ASA 81 mg, Triamterene-Hydrochlorothiazide, Norvasc, Lotensin. No programming changes made to device settings. See scanned report. Office pacemaker f/u 12/03/2025. Biotronik remote f/u 12/03/2024. Sienna Gutierrez RN Murphy Kim MD [facility] PROC EDURES Final Result * POCT lipid panel (05/16/2023 2:41 PM EXAMINER RATING CLERK) Cholesterol, POC 158 mg/dL HDL, POC 49 mg/dL Triglycerides, POC 262 mg/dL LDL Cholesterol POC 57 mg/dL Chol/HDL Ratio, POC 1.2 Non-HDL Cholesterol, POC 109 mg/dL Cholesterol Total, POC 158 mg/dL Capillary blood 05/16/2023 2 :41 PM EXAMINER RATING CLERK us Murphy Kim MD POINT OF CARE TEST ORDER YESENIA Final Result * (ABNORMAL) eGFR (09/20/2021 4:52 PM CDT) eGFR 31(L) 90 - 130 mL/min/1. 73 m2 [facility] Comment: Interpretive Data Reference Interval Normal >/= 90 mL/min/1.73m2 Mildly decreased* 60 - 89 mL/min/1.73m2 Mildly to moderately decreased 45 - 59 mL/min/1.73m2 Moderately to severely decreased 30 - 44 mL/min/1.73m2 Severely decreased 15 - 29 mL/min/1.73m2 Kidney Failure < 15 mL/min/1.73m2 *Relative to young adult level Estimated glomerular [...] NP LAB BLOOD ORDERABLES F inal Result [facility] Department [place] [address] * (ABNORMAL) POCT hemoglobin A1c (09/20/2021 4:23 PM CDT) Hgb A1C, POC 6.7(H) 4.0 - 5.6 % [facility] Est Average Gluc POC 146 mg/dL [facility] Comment: The ADA recommends reporting an estimated Average Glucose (eAG) with all Hemoglobin A1c results using the equation derived from a study of 507 normal and diabetic adults. Minority populations were underrepresented and children were not included. (Diabetes Care 31:4536-0261, 2008). The eAG is not equivalent to a fasting glucose. Blood 09/20/2021 4:23 PM CDT 09/20/2021 4:23 PM CDT Murphy Ellsworth MD PhD POINT OF CARE TEST ORD ERABLES Final Result Performing Organization Address City/State/[facility] Co de Phone Number [facility] Department [place] [address] from Last 3 Months or Most Recently Relevant to Health Maintenance Insurance [employer]PA [facility] [place] [address] Advance Directives For more information, please contact: [phone] * Full Code (Latest Code Status on File) Date Activated Date Inactivated Comments 10/07/2021 5:50 PM 10/08/2021 6:47 PM * Full Code Date Activated Date Inactivated Comments 07/01/2020 2:59 PM 07/07/2020 9:55 PM * Full Code Date Activated Date Inactivated Comments 05/08/2020 3:55 AM 05/09/2020 8:05 PM Care Teams Needle Polisher Relationship Specialty Start Date End Date Zhou Garcia DO [address] [place] [address] [phone] PCP - General Family Medicine 07/12/18
--- OUTSIDE RECORDS SUMMARY | 2024-10-30 14:53 | XMS_ITS | CONTINUITY OF CARE DOCUMENT ---
Author Name mini morse Address Unknown Organization [facility] Address [address] [place] [address] Phone [phone] Care Team Providers Care Machine Cutter Name Role Phone Jase Silvestre MD Unavailable [phone] Thompson Mathew MD Unavailable Thompson Mathew [...] In-person encounter Office Visit Jase Silvestre MD Muslim Office Achalasia - In-person encounter Office Visit Jase Silvestre MD Muslim Office Complete heart block S/P Biotronik dc [...] Policy type / Coverage type Judi red democrat ID UHC MEDICARE COMPLETE HMO Other [id number] ADVANCE DIRECTIVES Name Date DISCUSSED - NO DECISION MADE TREATMENT PLAN Date Name Performer [id number],S, S TRONGLY ENCOURAGED TO STOP SMOKING; SMOKING CESSATION TECHNIQUES DISCUSSED. Valentina Rach [id number],S, C ontinues on Metformin. Reduced intake of carbohydrates and sugars advised. Valentina Rach [id number],S, P er hospital records. Unclear why she is not on Aspirin. Valentina Rach [id number],C, D evice check today showed 0% AT/AF burden, 4 episodes of Afib. % pacing : RA:2%, RV: 99%. Valentina Rach [id number],S, s /p recent open aortic valve replacement. The incision is healing well. She continues to follow with CT surgery. Valentina Rach [id number],S, P er hospital records. Unclear why she is not on Aspirin. Jase Silvestre MD [id number],S, S CARMINALY ENCOURAGED TO STOP SMOKING; SMOKING CESSATION TECHNIQUES DISCUSSED. Jase Silvestre MD [id number],S, C ontinues on Metformin. Reduced intake of [...] % pacing : RA:2%, RV: 99%. Valentina oLyd Cardiology: s /p recent open aortic valve [...]
--- OUTSIDE RECORDS SUMMARY | 2024-10-30 14:53 | XMS_ITS | Patient Health Record ---
Author Organization [facility] Address [address] [place], [place] [address] Care Team Providers Care Client Delivery Manager Name Role Phone Vijay Christian Primary Care Provider U Prince Nicole Unavailable [phone] Reason For Referral No Information Medications Medication SIG (Take, Route, Frequency, Duration) Notes Start Date End Date Status Furosemide 20 MG 1 tablet Orally Once a day for 30 day(s) on hold Active hydrochlorot 25mg on hold No t-Taking metFORMIN HCl 500 MG 1 tablet with a johnny l Orally Once a day for 30 day(s) Active Omeprazole 40 MG 1 capsule 30 minutes before morning meal Orally Once a day for 30 day(s) Active Simvastatin 20 MG 1 tablet in the evening Orally Once a day for 30 day(s) Active Potassium Chloride 20 mEq 1 tablet orally TID for 30 days on hold Not-Taking Benazepril HCl 40 MG 1 tablet Orally Onc e a day for 30 day(s) on hold Not-Taking amLODIPine Besylate 5 MG 2 tablet Orally Once a day Active Social History Tobacco Use: Social History Observation Description Date Details (start date - stop date) Current Smoker NA - NA Alcohol: Question Answer Notes Did you have a drink containing alcohol in the p ast year? No Points 0 Interpretation Negative Smoking Question Answer Notes Are you a: Current smoker How many cigarettes do you smoke in a day? 6-10 Problems Problem Type SNOMED Code ICD Code Onset Dates Problem Status W/U Status Risk Notes Problem Hypercalcemia (61164595) Hypercalcemia (E83.52) Active confirmed Problem Hypertension (18407044) Hypertension (I10) Active confirmed Plan Of Treatment Pending Test Test Name Order Date Renal Panel (10) 06/09/2020 Magnesium 06/09/2020 Future Test Test Name Order Date Protein Elec + Interp, Serum 06/09/2020 Basic Metabolic Panel (8) 06/09/2020 FREE KAPPA & LAMBDA WITH K/L RATIO, SERU M 06/09/2020 Angiotensin converting enzyme 06/09/2020 Vitamin A 06/09/2020 PTH Related Peptide 06/09/2020 Immunofix Electropheresis Serum 06/09/19 21 TSH Reflex to FT4 06/09/2020 1,25 Vit D 06/09/2020 PTH Intact 06/09/2020 Insurance Providers Payer Name Payer Address Payer Phone Subscriber Number Group Number Insured Name Patient Relationship to Insured Coverage Start Date Coverage End Date [employer] [address] [address] [place] [address] [id number] Lissy Hernández Self - patient is the insured
--- OUTSIDE RECORDS SUMMARY | 2024-10-30 14:53 | XMS_ITS | Clinical Summary ---
Author Organization [facility] Address [address] [place] [address] Care Team Providers Care Tennis Court Attendant Name Role Phone Zhou Garcia Primary Care Provider + Source Comments [facility] [employer],non-owned Affiliates and Associated Physician Practices is amultiple site organization consisting of ambulatory clinics and hospital sitesin [place], [place], [place] and [place]. This disclosure is being madepursuant to the Care Everywhere program and may not contain all information available regarding this patient. Last updated 18.[facility] [employer] Allergies Active Allergy Reactions Criticality Noted Date Comments Latex Itching,Unknown 04/19/2018 Sores Sores Penicillins Urticaria,Rash Medium 04/19/2018 Penicillin allergy history form completed. Moderate risk Wasp Venom Protein Swelling Medium 05/08/2020 Medications * Be aware that medications may not be up to date on this document. Alwaysverify current medications with the patient. albuterol HFA (Proventil; Ventolin; Proair) 108 (90 Base) MCG/ACT inhaler 3 Active amLODIPine (Norvasc) 10 MG tablet Take 1 (one) tablet by mouth once daily 3 Active aspirin EC (Ecotrin) 81 MG tablet Take 1 (one) tablet by mouth once daily Active benazepril (Lotensin) 40 MG tablet 1 tablet Orally Once a day for 30 day(s) 3 Active Biotin w/ Vitamins C & E (Hair Skin & Nails Gummies) 1250-7.5-7.5 MCG-MG-UNT CHEW Take by mouth at bedtime 2 Active Blood Glucose Monitoring Suppl (ONE TOUCH ULTRA 2) w/Device KIT Use to check blood glucose daily for Diabetes. 2 Active furosemide (Lasix) 40 MG tablet Take 1 (one) tablet by mouth once daily 3 Active Lancets (ONETOUCH DELICA PLUS 33G EXTRA FINE LANCET) USE 1 TO CHECK GLUCOSE ONCE DAILY 2 Active metFORMIN ER 24hr (Glucophage XR) 500 MG tablet TAKE 2 TABLETS BY MOUTH ONCE DAILY WITH BREAKFAST 3 Active simvastatin (Zocor) 40 MG tablet TAKE 1 TABLET BY MOUTH NIGHTLY AT BEDTIME 2 Active vitamin E (Tocopheryl) 200 UNIT capsule Take 1 (one) capsule by mouth at bedtime 2 Active Multiple Vitamins-Minera ls (CENTRUM SILVER 50+WOMEN PO) Take by mouth once daily Active Probiotic Product (PROBIOTIC GUMMIES PO) Take by mouth once daily Active Specialty Vitamins Products (BRAIN PO) Take 300 mg by mouth once daily Active ibuprofen (Motrin) 600 MG tablet Take 1 (one) tablet by mouth every 6 hours as needed for Pain 40 tablet 3 Active oxyCODONE, immediate release, (Roxicodone) 5 MG tabletIndicatio ns:Endometrial carcinoma (HCC) Take 1 (one) tablet by mouth every 4 hours as needed for Pain 15 tablet 3 Active ondansetron, disintegrating, (Zofran ODT) 4 MG tablet Take 1 (one) tablet by mouth every 6 hours as needed for Nausea/Vomitin g Allow tablet to dissolve on the tongue 10 tablet 3 Active senna (Senokot) 8.6 MG tablet Take 2 (two) tablets by mouth once daily 30 tablet 3 Active nystatin (Mycostatin) 891539 UNIT/GM powder Apply to affected area 2 times daily 60 g 3 Active fluconazole (Diflucan) 150 MG tablet Take 1 tablet now and repeat in 72 hours 2 tablet 1 3 Active Active Problems Problem Noted Date Diagnosed [...] (08/25/2022): Added automatically from request for surgery [id number] Added automatically from request for surgery [id number] Added automatically from request for surgery [id number] Essential (primary) hypertension 05/03/2018 Family History Medical [...] = 0.6 oz pur e alcohol) Comments No Sex and Gender Information Value Date Recorded Sex Assigned at Not on file 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 Gender Identity Not on file Sexual Orientation Not on file Last Filed Vital Signs Vital Sign Reading Time Taken Comments Blood Pressure 152/90 09/21/2022 3:49 PM CDT Pulse 77 09/21/2022 3:49 PM CDT Temperature 36.3 C (97.4 F) 09/21/2022 12:20 PM CDT Respiratory Rate 16 09/21/2022 3:49 PM CDT Oxygen Saturation 95% 09/21/2022 3:49 PM CDT Inhaled Oxygen Concentration - - Weight 98.4 kg (217 lb) 09/21/2022 6:03 AM CDT Height 165.1 cm (5' 5) 09/21/2022 6:03 AM CDT Body Mass Index 36.11 09/21/2022 6:03 AM CDT Plan of Treatment Health Maintenance Due Date Last Done Comments COLOGUARD (AGES 45-75) - COLON CA SCREENING 1949 COLON MONITORING 1949 COLONOSCOPY - COLON CA SCREENING 1949 CT COLONOGRAPHY - COLON CA SCREENING 1950 Colorectal Cancer Screening 1949 FIT - COLON CA SCREENING 1949 FLEX SIG - COLON CA SCREENING 1949 DTAP/TDAP/TD VACCINES (1 - Tdap) 1968 PNEUMOCOCCAL VACCINE 50+ (1 of 2 - PCV) 1968 ZOSTER VACCINE (1 of 2) 09/24/1999 HEPATITIS B VACCINE (1 of 3 - Risk 3-dose series) 2009 DIABETES RETINOPATHY SCREENING 08/25/2022 DIABETES-FOOT EXAM WITH MONOFILAMENT 08/25/2022 DIABETES-HGB A1C 01/02/2024 07/04/2023, 03/2023, 09/20/2021 COVID-19 VACCINE ( season) 2024 05/27/2021, 09/09/2020, 08/12/2020 DEPRESSION SCREENING 05/22/2024 DIABETES - URINE PROTEIN SCREENING 05/22/2024 MEDICARE AWV CALENDAR YEAR 2024 MAMMOGRAM 07/05/2024 07/05/2022 DIABETES-SERUM CREATININE 08/16/20242023, 09/21/2022, 09/14/2022, Additional history exists Respiratory Syncytial Virus (RSV) Vaccine Pt: or over 60 yrs (1 - 1-dose 75+ series) 2024 INFLUENZA VACCINE (Season Ended) 2025 02/15/2023, 03/24/2022, 03/25/2021, Additional history exists HEPATITIS C SCREENING Completed 11/08/2021 BONE DENSITY TESTING Completed 07/05/2022 HIB VACCINE Aged Out No longer eligi ble based on patient's age to complete this topic HPV VACCINE Aged Out No longer eligi ble based on patient's age to complete this topic MENINGOCOCCAL (Group B) VACCINE SHARED DECISION-MAKING Aged Out No longer eligible based on patient's age to complete this topic MENINGOCOCCAL GROUPS A/C/Y/W VACCINE Aged Out No longer eligible based [...] - 5.1 mmol/L 09/21/2022 6:55 AM CDT [facility] Chloride 108(H) 98 - 107 mmol/L 09/21/2022 6:55 AM CDT [facility] CO2 23 23 - 31 mmol/L 09/21/2022 6:55 AM CDT [facility] Calcium 10.5(H) 8.4 - 10.4 mg/dL 09/21/2022 6:55 AM CDT [facility] Anion Gap 11 8 - 18 mmol/L 09/21/2022 6:55 AM CDT [facility] BUN 22(H) 9.8 - 20.1 mg/dL 09/21/2022 6:55 AM CDT [facility] Creatinine 1.34(H) 0.57 - 1.11 mg/dL 09/21/2022 6:55 AM CDT [facility] Alkaline Phosphatase 111 40 - 150 U/L 09/21/2022 6:55 AM CDT [facility] ALT 21 0 - 61 U/L 09/21/2022 6:55 AM CDT [facility] AST 20 5 - 34 U/L 09/21/2022 6:55 AM CDT [facility] Protein Total 7.3 6.4 - 8.3 gm/dL 09/21/2022 6:55 AM CDT [facility] Albumin 4.3 3.2 - 4.6 gm/dL 09/21/2022 6:55 AM CDT [facility] Bilirubin Total 0.7 0.2 - 1.2 mg/dL 09/21/2022 6:55 AM CDT [facility] eGFR by CKD-EPI 42(L) >=90 mL/min/1.7 3 m2 09/21/2022 6:55 AM CDT [facility] Blood BLOOD SPECIMEN / Unknown Venipuncture / Unknown 09/21/2022 6:11 AM CDT 09/21/2022 6:28 AM CDT Joni Fair MD LAB - CHEMISTRY ORDERABLES Final Result Performing Organization Address City/State/[facility] Co de Phone Number [facility] [address] [place] [address] from Last 3 Months or Most Recently Relevant to Health Maintenance Insurance MEDICAID - [place] Care Teams Tennis Court Attendant Relationship Specialty Start Date End Date Zhou Garcia DO [address] [place] [address] PCP - General 08/05/22
--- OUTSIDE RECORDS SUMMARY | 2024-10-30 14:53 | XMS_ITS | Data Portability ---
Author Organization [facility] [employer], Main Office Address [address] [place] [address] Care Team Providers Care Director Student Union Name Role Phone THOMPSON MATHEW Primary Care Provider PRIYANKATHOMPSON Referring Provider Assessment Encounter Date Assessment Date Assessment LastModified by Organization Details LastModified Time 07/27/2023 07/27/2023 This note is dictated and transcribed by [employer]. Occupational Therapist Assistants variances may occur. Despite proofreading, typographical errors may occur. Occasional wrong-word or '[id number]-[id number]' substitutions may have occurred due to the [...] topical cream 2022 1205 023 [facility] [address] [place], [address], 3 13:31:42 Patient TargetsNo targets recorded. Patient Instructions Encounter Date Encounter Id Patient Instructions Last Modified By Organization Details Last Modified Time 07/27/2023 [id number] diabetic foot care education mahi Not available 07/31/2023 11:06:17 diabetic neuropathy: care instructions mahi Not available 07/31/2023 11:06:17 Reason for Referral None Reported. Problems Name Problem SNOMED Code Status Onset Date Resolution Date Notes Provider Name and Address Organization Details Recorded Time Superficial foreign body in toe Active 2020 Not Available [facility] 03/02/202 3 00:05:36 Onychomycosis of toenails 773994368 Active 2022 Artem Patel DPM [address], [address] [facility], [place], [address] , [facility] [employer] [facility] 13:31:16 Diabetes mellitus 33866555 Active 2022 Artem Patel DPM [address], [address], [place], [address] , [facility] [employer] [facility] 3 15:37:44 Hammer toe 362196344 Active 2022 Artem Patel DPM [address], [address], [place], [place], [address] [place] [address] , [facility] [employer] [facility] 15:38:13 Problem Notes None recorded. Procedures Surgical History Date Name Laterality Status Provider Name and Address Organization Details Recorded Time 04/25/20 23 Nail Debridement completed Artem Patel DPM [address], [address], [place], [address], [facility] [employer] [facility] 04/25/2023 15:37:30 Pacemaker completed Not Available [facility] 0 07/21/2022 00:04:57 open heart surgery completed Not Available [facility] 07/21/2022 00:04:57 aortic valvotomy completed Not Available [facility] 07/21/2022 00:04:57 Imaging Results None recorded. Procedure Notes None recorded. Medical Equipment None Reported. Allergies Allergen ID Allergen Name Allergen Category Reaction Reaction Severity Criticality Documentation Date Start Date Code Code System Note Provider Name and Address Organization Details Recorded Time 47754 Product containin g penicilli n (product) medicatio n Not available Not available Not available 07/21/2022 43774 8001 SNOMED Not Available [facility] 3 00:06:30 39620 latex environme nt,medica tion Not available Not available Not available 07/21/2022 24047 91 RxNorm Not Available [facility] 00:06:30 Medications Name Sig Start Date [...] WEEK, THEN INCREASE TO ONE TABLET DAILY SARAH Torres 07/26 completed Not Available Not Available Not [...] Not Available Not Available Vitals Date Recorded Heart rate Respiratory rate Oxygen saturation Oxygen saturation in Arterial blood by Pulse oximetry Systolic blood pressure Diastolic blood pressure Provider Name and Address Organization Details Last Updated DateTime 4 69 /min 14 /min 98 % 98 % 168 mm[Hg] 87 mm[Hg] Arielle Prado [employer] 4 16:12:58 Date Recorded Body height Heart rate Systolic blood pressure Diastolic blood pressure Provider Name and Address Organization Details Last Updated DateTime 04/22/2021 167.64 cm 101 /min 158 mm[Hg] 103 mm[Hg] Not Available [facility] 07/21/2022 00:05:15 Date Recorded Heart rate Respiratory rate Oxygen saturation Oxygen saturation in Arterial blood by Pulse oximetry Systolic blood pressure Diastolic blood pressure Provider Name and Address Organization Details Last Updated DateTime 3 86 /min 14 /min 98 % 98 % 154 mm[Hg] 85 mm[Hg] Arielle Johan [employer] 3 12:47:25 Social History Question Answer Notes LastModified by [employer] Details LastModified Time Tobacco Smoking Status Former Smoker Not Available [facility] 07/21/2022 00:04:47 What Is Your Level Of Caffeine Consumption? Occasional [id number] Information not available 07/21/2022 What Was The Date Of Your Most Recent Tobacco Screening? 04/22/2021 [id number] Information not available 07/21/2022 Has Tobacco Cessation Counseling Been Provided? No [id number] Information not available 07/21/2022 Sex: Unknown Functional Status Question Answer Note LastModified by [employer] Details LastModified Time Do you use any illicit or recreational drugs? No [id number] Information not available 07/21/2022 Do you or have you ever used any other forms of tobacco or nicotine? No [id number] 26 Information not available 07/21/2022 What is your level of alcohol consumption? None [id number] 26 Information not available 07/21/2022 Mental Status None recorded. Family History Relationship Description Onset Age of this Age Resolved Age Notes LastModified by Organization Details LastModified Time Sister Diabetes mellitus [id number] Not available 07/21/2022 00:04:58 Mother Arthritis [id number].757 [id number] Not available 07/21/2022 00:04:58 Mother Pulmonary embolism [id number].379 [id number] Not available 07/21/2022 00:04:58 Father Arthritis MIGRATION.912 [id number] Not available 07/21/2022 00:04:58 Father Heart disease [id number].678 [id number] Not available 07/21/2022 00:04:58 Unspecified Relation Family history of malignant neoplasm [id number].145 [id number] Not available 07/21/2022 00:04:58 Maternal Grandfather Family history of malignant neoplasm MIGRATION.027 [id number] Not available 07/21/2022 00:04:58 Maternal Grandmother Osteoporosis MIGRATION.0 30 [id number] Not available 07/21/2022 00:04:58 Medical History Condition Response ARTHRITIS Y DIABETES, TYPE Y HIGH CHOLESTEROL / HYPERLIPIDEMIA Y DEPRESSION (INCLUDING POST ) Y BACK / NECK PROBLEMS Y HEADACHES/MIGRAINES Y DIZZINESS Y CANCER: SPECIFY Y OBESITY Y OSTEOPOROSIS Y Gynecological HistoryNo gynecological history recorded. Obstetrics History GPAL:G 0 P 0 0 0 0 Past Encounters Encounter ID Performer Location Encounter Start Date Encounter Closed Date Diagnosis/Indication Diagnosis SNOMED-CT Code Diagnosis ICD10 Code Diagnosis Note [id number] Artem Patel DPM [facility] [address] [address] 04/22/2021 00:00:00 04/26/2021 09:00:11 [id number] Artem Patel DPM [facility] [address] [address] 04/25/2023 12:40:40 04/26/2023 16:37:21 Onychomycosis of toenails 128283823 B35.1 Nails debrided without incidentRx ketoconazo lefollow-u p 3 months Diabetes mellitus 773972 09 E11.9 Patient educated on neuropathy , diabetes, diabetic diet, and daily foot exams. Patient is to check feet daily for new wounds, blisters, redness to prevent infection and ulceration s to the feet. Patient will return to clinic in 3 months for diabetic foot workup. Hammer toe 962358018 M20 .41 educated on conditionT reatment options reviewedPa tient defers surgery will continue conservati ve therapy with offloading to prevent wounds infectionE ducated on shoe gearFollow -up as needed [id number] Artem Patel DPM [facility] [place] [address] [facility] [address] [place] [address] 07/27/2023 16:01:10 07/31/2023 17:35:17 Diabetes mellitus 84920341 E11.9 Patient educated on neuropathy , diabetes, diabetic diet, and daily foot exams. Patient is to check feet daily for new wounds, blisters, redness to prevent infection and ulceration s to the feet. Patient will return to clinic in 3 months for diabetic foot workup. Onychomyco sis of toenails 171746182 B35.1 Nails debrided without incidentRx ketoconazo le Continue at homefollow -up 3 months Health Concerns Section Related Observation LastModified by Organization Detai ls LastModified Time None Recorded Concern Status LastModified by Organization Details LastModified Time None Recorded Advance Directives Directive None Recorded Payers Encounter Date Sequence Insurance Name Policy Number Policy Shen Covered Member ID Shen Member ID Guarantor Name 04/25/2023 1 [facility] (MEDICARE REPLACEMENT/AD VANTAGE - HMO) [id number] Lissy Hernández [id number] Lissy Hernández 04/25/2023 2 [facility] (MEDICAID REPLACEMENT - HMO) [id number] Lissy Hernández [id number] Lissy Hernández 07/27/2023 1 [facility] (MEDICARE REPLACEMENT/AD VANTAGE - HMO) [id number] Lissy Hernández [id number] Lissy Hernández 07/27/2023 2 [facility] (MEDICAID REPLACEMENT - HMO) [id number] Lissy Hernández [id number] Lissy Hernández Notes Date Note Type Note [...] denies any other complaints. Artem Patel DPM [address], [place] [address], [place], [address], [employer] 04/25/2023 15:38:43 07/27/2023 text/html . Patient is a 72-year-old female who returns the office for follow-up on diabetic foot care. Patient denies any new complaints. Patient denies any open wounds or infection. Patient denies any pain with walking. Artem Patel DPM [address], [place] [address], [place], [address], [employer] 07/31/2023 11:06:42 OBGyn Episode No OBEpisode recorded.
--- OUTSIDE RECORDS SUMMARY | 2024-10-30 14:53 | XMS_ITS | Clinical Summary ---
Author Organization [facility] Address [address] [address] Phone Care Team Providers Care Boat Garnisher Name Role Phone FrankdanyaZhou Jessica JJ Primary Care Provider + Allergies [...] mg by mouth 3 times daily. 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 Gender Identity Not on file Sexual Orientation Not on file Plan of Treatment Health Maintenance Due Date Last Done Comments DEXA Bone Density 1950 Hepatitis C Virus (HCV) Screening 1950 Mammogram 1950 TdaP Immunization 1950 Colonoscopy 1994 Colorectal Cancer Screening 1994 Cologuard 09/24/1999 Immunochemical Fecal Occult Blood 09/24/1999 Pneumococcal Immunization (5 0+ years) (1 of 1 - PCV) 09/24/1999 Zoster Immunization (1 of 2) 09/24/1999 SARS-COV-2 Immunization (1 - 2023- season) 2024 Respiratory Syncytial Virus (RSV) Immunization (Adult) (1 - 1-dose 75+ series) 2024 Influenza Immunization (Seas on Ended) 2025 Hepatitis B Immunization Aged Out No longer eligible based on patient's age to complete this topic Meningococcal Immunization (ACWY) Aged Out No longer eligible based on patient's age to complete this topic Rotavirus Immunization Aged Out No lo nger eligible based on patient's age to complete this topic Insurance MEDICARE C [facility] Care Teams Boat Garnisher Relationship Specialty Start Date End Date Zhou Garcia DO [address] [place] [id number] PCP - General Family Medicine 07/06/20
--- OUTSIDE RECORDS SUMMARY | 2024-10-30 14:53 | XMS_ITS | Clinical Summary ---
Author Organization [facility] [place] [address] Address [address] [place] [address] Care Team Providers Care Geospatial Specialist Name Role Phone Zhou Garcia Primary Care Provide r Allergies Active Allergy [...] (08/03/2021): Added automatically from request for surgery [id number] Tobacco dependence syndrome 08/07/2020 Pacemaker lead malfunction 06/26/2020 Overview (07/19/2021): Added automatically from request for surgery [id number] Added automatically from request for surgery [id number] Esophageal dysphagia 06/26/2020 Overview (07/03/2020): Added automatically from request for surgery [id number] Heart block 06/17/2020 S/P placement of cardiac [...] (07/19/2021): Added automatically from request for surgery [id number] Added automatically from request for surgery [id number] Added automatically from request for surgery [id number] 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 09/2019 Nonrheumatic aortic valve stenosis 06/20/2019 Rosacea 06/09/2019 Type 2 diabetes mellitus wit hout complication, without long-term current use of insulin ([facility]/HCC) 04/23/2019 Chronic renal failure syndrome 04/23/2019 Hyperlipidemia 04/23/2019 Esophageal dysphagia 01/06/2019 Overview (07/19/2021): Added automatically from request for surgery [id number] Heart murmur 01/06/2019 Tobacco use disorder 01/06/2019 Medical non-compliance 11/27/2018 Hypertension 05/03/2018 Transient ischemic attack 05/03/2018 Encounter for other preprocedural examination Encounters Date Type Department Care Team Description 08/28/2024 1:00 PM CDT Ancillary Procedure [facility] [address] [place] [address] Atrioventricular block, complete (HCC); Presence of cardiac pacemaker from Last 3 Months Immunizations Immunization Administration Dates Next Due Influenza, [...] often do you attend chur ch or orthodoxy services? Never 07/02/2020 Do you belong to any clubs o r organizations such as episcopal groups, unions, fraternal or athletic groups, or [...] [place] [facility] ([facility] No 07/02/2020 Comments No Sex and Gender Information Value Date Recorded Sex Assigned at Not on file Legal Sex Female 4:15 AM GENERATOR REPAIRER Gender Identity Not on file Sexual Orientation Not on file Obstetrics History Last Filed Vital Signs Vital Sign Reading Time Taken Comments Blood Pressure 130/80 05/16/2023 1:46 PM GENERATOR REPAIRER Pulse 66 05/16/2023 1:46 PM GENERATOR REPAIRER Temperature 36.5 C (97.7 F) 10/08/2021 12:05 PM CDT Respiratory Rate 18 10/08/2021 12:05 PM CDT Oxygen Saturation 97% 05/16/2023 1:46 PM GENERATOR REPAIRER Inhaled Oxygen Concentration - - Weight 97.5 kg (215 lb) 05/16/2023 1:46 PM GENERATOR REPAIRER Height 167.6 cm (5' 6) 05/16/2023 1:46 PM GENERATOR REPAIRER Body Mass Index 34.7 05/16/2023 1:46 PM GENERATOR REPAIRER Plan of Treatment Health Maintenance Due Date Last Done Comments Albumin Creatinine Ratio, Urine 1950 Colon Cancer Screening-Colonoscopy 1950 Hepatitis C Screening 1950 Dilated Eye Exam 1949 Foot Exam 1950 Hepatitis B Screening 09/24/1967 Well Visit 65+ 2014 Depression Screening 07/28/2021 07/28/2020 Hemoglobin A1C 03/23/2022 09/20/2021 eGFR 09/20/2022 09/20/2021, 021 10/2020, 07/06/2020, Additional history exists Fall Risk Assessment 10/08/2022 10/08/2021 Covid-19 Vaccine (4 - 2023-2 5 season) 2024 05/27/2021, 09/09/2020, 08/12/2020 Osteoporosis Screening-Bone Density Scan 07/05/2024 07/05/2022 Lipid Panel 03/19/2025 03/19/2024, 02/0 10/2023, 05/16/2023, Additional history exists DTaP/Tdap/Td Vaccine (3 - Td or Tdap) 05/08/2029 05/08/2019, 06/25/2015, 07/07/2004 Pneumococcal vaccine 65+ Completed 022, 06/25/2015, 04/19/2012 Zoster Vaccine Completed 04/25/2022, 01/04/2022 Breast Cancer Screening-Mammogram Discontinued 023, 07/05/2022 Influenza Vaccine Completed 05/31/2024, , 03/25/2021, Additional history exists Medical Devices Implanted 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 Device Identifier Shelf Expiration Date Model / Serial / Lot Pacemaker- [id number] Implanted:2020 (Quantity not on file) Pacemaker N/A: Heart [employer] [id number] Promri Solia S 60cm Lead Pacing Steroid Eluting - [id number] - [id number] Implanted:Qty: 1 on 05/08/2020 by Jase Silvestre MD at [facility] Left: Chest [employer] 02/18/2022 [id number] / [id number] / [employer] [id number] Solia S 53cm Steroid Elute Bipolar Active Fixation Endocardial - [id number] - [id number] Implanted:Qty: 1 on 05/08/2020 by Jase Silvestre MD at [facility] Left: Chest [employer] 03/21/2022 [id number] / [id number] / [employer] [id number] Edora Promri 90i27t2.5mm Dual Chamber Rate Adaptive Unipolar Bipolar - [id number] - [id number] Implanted:Qty: 1 on 05/08/2020 by Jase Silvestre MD at [facility] Left: Chest [employer] 07/19/2021 [id number] / [id number] / [employer] [id number] Inspiris Resilia Leaflet Sewing Ring 23mm Valve Aortic Bovine - [id number] - [id number] Implanted:Qty: 1 on 07/01/2020 by Jesse Segura MD at [facility] N/A: Heart [employer] 01/15/2024 [id number] / [id number] / Procedures Procedure Name Priority Date/Time Associated Diagnosis Comments DEVICE CHECK - IN OFFICE Routine 08/28/2024 12:54 PM CDT Atrioventricular block, complete (HCC) Presence of cardiac pacemaker POCT LIPID PANEL Routine 05/16/2023 2:41 PM GENERATOR REPAIRER Lipid screening EGFR Routine 09/20/2021 4:52 PM [...] RAVEN. Appropriate lead measurements noted. Presenting rhythm: -K9 HANDLER with PVC's. Underlying rhythm-CHB no v-escape @ DDI 30 bpm. Consider Pacemaker Dependent. AP-18%, K9 HANDLER-96%. No Atrial high rate episodes noted. No Ventricular high rate episodes noted. Medications; ASA 81 mg, Triamterene-Hydrochlorothiazide, Norvasc, Lotensin. No programming changes made to device settings. See scanned report. Office pacemaker f/u 12/03/2025. Bi[employer]ronik remote f/u 12/03/2024. Sienna Gutierrez, JAREK us Murphy Kim MD [facility] PROC EDURES Final Result * POCT lipid panel (05/16/2023 2:41 PM GENERATOR REPAIRER) Cholesterol, POC 158 mg/dL HDL, POC 49 mg/dL Triglycerides, POC 262 mg/dL LDL Cholesterol POC 57 mg/dL Chol/HDL Ratio, POC 1.2 Non-HDL Cholesterol, POC 109 mg/dL Cholesterol Total, POC 158 mg/dL Capillary blood 05/16/2023 2 :41 PM GENERATOR REPAIRER us Murphy Kim MD POINT OF CARE TEST ORDER YESENIA Final Result * (ABNORMAL) eGFR (09/20/2021 4:52 PM CDT) eGFR 31(L) 90 - 130 mL/min/1. 73 m2 [facility] Comment: Interpretive Data Reference Interval Normal >/= [...] NP LAB BLOOD ORDERABLES F inal Result [facility] Department [place] [address] * (ABNORMAL) POCT hemoglobin A1c (09/20/2021 4:23 PM CDT) Hgb A1C, POC 6.7(H) 4.0 - 5.6 % [facility] Est Average Gluc POC 146 mg/dL [facility] Comment: The ADA recommends reporting an estimated Average Glucose (eAG) with all Hemoglobin A1c results using the equation derived from a study of 507 normal and diabetic adults. Minority populations were underrepresented and children were not included. (Diabetes Care 31:4016-8931, 2008). The eAG is not equivalent to a fasting glucose. Blood 09/20/2021 4:23 PM CDT 09/20/2021 4:23 PM CDT Murphy Ellsworth MD PhD POINT OF CARE TEST ORD ERABLES Final Result [facility] Department [place] [address] from Last 3 Months or Most Recently Relevant to Health Maintenance Insurance [facility] MEDICARE ADVANTAGE IDPA [facility] HMO REF [facility] MEDICARE ADVANTAGE Advance Directives For more information, please contact: [phone] * Full Code (Latest Code Status on File) Date Activated Date Inactivated Comments 10/07/2021 5:50 PM 10/08/2021 6:47 PM * Full Code Date Activated Date Inactivated Comments 07/01/2020 2:59 PM 07/07/2020 9:55 PM * Full Code Date Activated Date Inactivated Comments 05/08/2020 3:55 AM 05/09/2020 8:05 PM Care Teams Geospatial Specialist Relationship Specialty Start Date End Date Zhou Garcia DO [address] [place] [id number] PCP - General Family Medicine 07/12/18
--- OUTSIDE RECORDS SUMMARY | 2024-10-30 14:53 | XMS_ITS | Data Portability ---
Author Organization [facility] [place] Address [address] [place] [address] Care Team Providers Care Pre Kindergarten Teacher Name Role Phone THOMPSON MATHEW Referring Provider Assessment Encounter Date Assessment Date Assessment LastModified by Organization Details LastModified Time 07/19/2022 07/19/2022 discussed no bleeding is reassuring, but with cervical stenosis, bleeding could be blocked ddx from benign to malignant discussed surgery and risks including those of anesthesia given her medical problems. consented, questions answered. [email or web address] Not available 07/22/2022 09:49:24 08/01/2022 08/01/2022 Discussed pathology and diagnosis of suspected endometrial carcinoma with at least complex atypical hyperplasia. questions answered, support given. discussed referral to talent director onc, treatment likely to be hyst with staging. pt prefers not [facility] as she is nervous trying to get around their campus. would prefer [facility] if possible with her insurance. [email or web address] Not available 08/01/2022 18:47:29 10/24/2024 10/24/2024 Annual gynecological exam performed. Patient will come back in a year unless there are new symptoms. Not available 10/24/2024 12:09:07 Plan of Treatment Reminders Order Date Submit Date Provider Last Modified By Organization Details Last Modified Time Details Appointments None recorded. Lab unlisted lab - women's health swab, CHULA 2024 025 [facility] (Lab), [address], [place], [address], 13:06:[address] referral 2022 023 [place] [address] [facility], [address] [place], [address], 4 14:14:45 Procedures None recorded. Surgeries None recorded. Imaging None recorded. Medication Orders nystatin-tr iamcinolone 100,000 unit/gram-0 .1 % topical ointment 2024 025 [facility] [address], [address] [place] [address], [address], 5 13:34:47 nystatin 100,000 unit/gram topical powder 2024 025 [facility] [address], [address] [place] [address], [address], 5 13:35:05 nystatin 100,000 unit/gram topical ointment [address], [address] [place] [address], [address], 5 12:22:54 nystatin 100,000 unit/gram topical powder [address], [address] [place], [address], 5 12:22:56 mupirocin 2 % topical ointment 2022 023 [facility] [address], [address] [place] [address], [address], 3 16:15:05 Patient TargetsNo targets recorded. Patient InstructionsNo instructions recorded. Reason for Referral Nurse Esthetician Referral for S kin lesion Referring Physician: Romelia Saeed, KEG HEADER, Encounter Date: 04/10/2023 Results Created Date Observation Date Name Description Value Unit Range Abnormal Flag Note LastModifiedBy Organization Detail LastModifiedTime 04/10/20 23 04/10/2023 VAGIN ITIS/ VAGIN OSIS, DNA PROBE emile sp. detection, direct probe Negati ve negati ve Not Available [facility] (Lab) [address] [facility], [place], [address], 04/13/2023 08:41:58 04/10/2004/10/2023 VAGIN ITIS/ VAGIN OSIS, DNA PROBE gardnerella vag. detection, direct probe Negati ve negati ve Not Available [facility] (Lab) [address] [facility], [place], [address], 04/13/2023 08:41:58 04/10/2004/10/2023 VAGIN ITIS/ VAGIN OSIS, DNA PROBE trichomonas vag. detection, direct probe Negati ve negati ve Not Available [facility] (Lab) [address] [facility], [place], [address], 04/13/2023 08:41:58 04/10/2004/10/2023 CULTU RE: AEROB IC/AN AEROB IC result report SEE RESULT S BELOW Test: Cultu re: Aerob ic/An aerob ic Speci men Sourc e: Other Speci men Type: Micro biolo gy Speci men Speci men Date: 04/10 5:17 PM Resul t Date: 04/13 7:38 AM Resul t Statu s: Final resul t Yareli bernstein Lab: [facility] [address] [facility] [address] Tel: CULTU RE ----- ----- ----- --- Light Growt h Hetal l skin sheryl Cultu re sampl es colle cted from sites that are proxi mal to hetal l anaer obic sheryl , do not provi de usefu l infor matrico n. The anaer obic porti on of this cultu re has been credi mimi. STAIN ----- ----- ----- --- No organ isms seen Not Available [facility] (Lab) [address] [facility], [place], [address], 04/13/2023 08:41:58 06/28/1906/28/2022 US, trans vagin al No observ ation record ed. [email or web address] [place] [address], [place], [address], 10/03/2022 11:13:35 06/28/1906/28/2022 US, trans vagin al No observ ation record ed. [email or web address] [facility] [address], [place], [address], 07/06/2022 16:25:16 Result Notes None recorded. Problems Name Problem SNOMED Code Status Onset Date Resolution Date Notes Provider Name and Address Organization Details Recorded Time Type 2 diabetes mellitus 28003297 Active 2022 Gwen Conteh MD [address], [place], [address], [facility] 17:03:29 Essential hypertensi on 32474346 Active 2022 Gwen Conteh MD [address], [place], [address], [facility] 17:03:47 Hyperlipid emia 46001103 Active 2022 Gwen Conteh MD [address], [place], [address], [facility] 17:03:55 Coronary arterioscl erosis 60448327 Active 2022 Gwen Conteh MD [address], [place], [address], [facility] 17:04:04 Chronic obstructiv e pulmonary disease 70953817 Active 2022 Gwen Conteh MD [address], [place], [address], [facility] 17:04:21 Heavy tobacco smoker 168723533950 103 Active 2022 Gwen Conteh MD [address], [place], [address], [facility] 17:05:02 Endometria l carcinoma 823429495 Active 2022 Gwen Conteh MD [address], [place], [address], [facility] 18:46:14 Problem Notes None recorded. Procedures Surgical History Date Name Laterality Status Provider Name and Address Organization Details Recorded Time 01/21/20 23 biopsy of lesion of cheek completed Andressa Simon [facility] 04/10/2023 16:08:00 09/20/19 23 Total Hysterectomy completed Andressa Simon [facility] 04/11/2023 14:09:48 07/26/19 23 DILATION AND CURETTAGE WITH HYSTEROSCOPY (SURG) completed Nickie Wilder [facility] 07/26/2022 10:16:01 07/06/19 23 Endometrial Biopsy completed Gwen Conteh MD [address], [place], [address], [facility] 07/06/2022 17:46:51 05/22/19 22 balloon dilation of achalasia of esophagus completed Andressa Simon [facility] 04/11/2023 14:19:09 06/25/19 21 open heart surgery completed Melisa Tapia [facility] 10/24/2024 12:28:31 05/22/19 20 cardiac pacemaker procedure completed Sophia Montesinos [facility] 06/13/2022 16:40:04 05/22/19 13 Colonoscopy completed Andressa Simon [facility] 04/10/2023 16:08:05 Imaging Results None recorded. Procedure Notes None recorded. Medical Equipment None Reported. Allergies Allergen ID Allergen Name Allergen Category Reaction Reaction Severity Criticality Documentation Date Start Date Code Code System Note Provider Name and Address Organization Details Recorded Time 15400 latex environme nt,medica tion Not available Not available Not available 06/13/2022 21576 91 RxNorm Sophia Montesinos [facility] 16:38:23 [address]06[address] Product containin g penicilli n (product) medicatio n Not available Not available Not available 06/13/2022 17748 8001 SNOMED Sophia Montesinos [facility] 16:38:34 44160 amlodipin e medicatio n Not available Not available Not available 06/13/2022 01607 RxNorm Sophia Montesinos [facility] 16:38:39 Medications Name Sig Start Date Stop Date Status Note LastModified by Organization Details LastModified Time amoxicillin 500 mg capsule TAKE FOUR CAPSULES BY MOUTH ONE HOUR BEFORE APPOINTME NT 10/24 completed Not Available Not Available Not Available furosemide 40 mg tablet TAKE 1 TABLET BY MOUTH ONCE DAILY 07/19 completed Not Available Not Available Not Available fluticasone 250 mcg-salmete rol 50 mcg/dose blistr powdr for inhalation INHALE 1 DOSE BY MOUTH TWICE DAILY 04/10 completed Not Available Not Available Not Available doxycycline hyclate 100 mg capsule TAKE 1 CAPSULE BY MOUTH TWICE DAILY FOR 10 DAYS 10/24 completed Not Available Not Available Not Available albuterol sulfate 2.5 mg/3 mL (0.083 %) solution for nebulizatio n USE 1 VIAL IN NEBULIZER EVERY 6 HOURS NEEDED FOR WHEEZING FOR SHORTNESS OF BREATH active Not Available Not Available No t Available cetirizine 10 mg tablet TAKE 1 TABLET BY MOUTH ONCE DAILY active Not Available Not Available No t Available nifedipine ER 90 mg tablet,exte nded release TAKE 1 TABLET BY MOUTH ONCE DAILY active Not Available Not Available No t Available nystatin 100,000 unit/gram topical ointment APPLY OINTMENT TOPICALLY TO AFFECTED AREA TWICE DAILY FOR 7 DAYS 10/24 completed Not Available Not Available Not Available fluconazole 150 mg tablet TAKE ONE TABLET BY MOUTH ONCE FOR 1 DOSE, REPEAT IN 72 HOURS IF NEEDED. 10/24 completed Not Available Not Available Not Available benzonatate 200 mg capsule TAKE 1 CAPSULE BY MOUTH THREE TIMES DAILY NEEDED FOR COUGH 10/24 completed Not Available Not Available Not Available hydrocodone 5 mg-acetamin ophen 325 mg tablet TAKE 1 TABLET BY MOUTH EVERY 6 HOURS NEEDED FOR PAIN active Not Available Not Available No t Available promethazin e 25 mg rectal suppository INSERT 1 SUPPOSITO RY RECTALLY EVERY 6 HOURS NEEDED FOR NAUSEA OR VOMITING 04/10 completed Not Available Not Available Not Available prednisone 20 mg tablet TAKE 3 TABLETS DAILY FOR 3 DAYS, THEN TAKE 2 TABLETS DAILY FOR 3 DAYS, THE TAKE 1 TABLET DAILY FOR 3 DAYS active Not Available Not Available No t Available fluorouraci l 5 % topical cream [...] azole 800 mg-trimetho prim 160 mg tablet TAKE 1 TABLET BY MOUTH TWICE DAILY FOR 10 DAYS active Not Available Not Available No t Available omeprazole 40 mg capsule,del ayed release TAKE 1 CAPSULE BY MOUTH ONCE DAILY 04/10 completed Not Available Not Available Not Available simvastatin 40 mg tablet TAKE 1 TABLET BY MOUTH NIGHTLY AT BEDTIME active Not Available Not Available No t Available nystatin-tr iamcinolone 100,000 unit/gram-0 .1 % topical ointment active Not Available Not Available Not Available OneTouch Ultra Test strips USE TO [...] Not Available Not Available No t Available codeine 10 mg-guaifene sin 100 mg/5 mL oral liquid TAKE 5-10 MLS BY MOUTH EVERY 6 HOURS NEEDED FOR COUGH 10/24 completed Not Available Not Available Not Available mupirocin 2 % topical ointment APPLY A SMALL AMOUNT OF OINTMENT TOPICALLY TO THE AFFECTED AREA THREE TIMES DAILY FOR 7 DAYS active Not Available Not Available No t Available furosemide 20 mg tablet TAKE 1 TABLET BY MOUTH ONCE DAILY NEEDED active Not Available Not Available No t Available nystatin 100,000 unit/gram topical powder APPLY TO THE AFFECTED AREA(S) BY TOPICAL ROUTE 2 TIMES PER DAY NEEDED 2024 active Not Available Not Available Not Avai [...] Not Available Not Available No t Available nifedipine ER 60 mg tablet,exte nded release TAKE 1 TABLET BY MOUTH ONCE DAILY 10/24 completed Not Available Not Available Not Available ondansetron 4 mg disintegrat ing tablet [...] Not Available Not Available No t Available doxycycline hyclate 100 mg tablet TAKE 1 TABLET BY MOUTH TWICE DAILY 10/24 completed Not Available Not Available Not Available oxycodone 5 mg tablet TAKE 1 TABLET BY MOUTH EVERY 4 HOURS NEEDED FOR PAIN 04/10 completed Not Available Not Available Not Available ciprofloxac in 0.3 %-dexametha sone 0.1 % ear drops,suspe nsion INSTILL 4 DROPS INTO LEFT EAR TWICE DAILY FOR 10 DAYS active Not Available Not Available No t Available nitrofurant oin monohydrate /macrocryst als 100 [...] Updated DateTime 07/19/2022 165.1 cm 34.8 kg/m2 89667.81 g 129 mm[Hg] 74 mm[Hg] [facility] 3 15:52:10 Date Recorded Body height Body mass index (BMI) Body weight Systolic blood pressure Diastolic blood pressure Provider Name and Address Organization Details Last Updated DateTime 08/01/2022 165.1 cm 35.4 kg/m2 54190.17 g 149 mm[Hg] 80 mm[Hg] [facility] 3 16:41:05 Date Recorded Body height Body mass index (BMI) Body weight Systolic blood pressure Diastolic blood pressure Provider Name and Address Organization Details Last Updated DateTime 10/24/2024 165.1 cm 32.9 kg/m2 08838.29 g 122 mm[Hg] 70 mm[Hg] Melisa Tapia [facility] 5 12:22:33 Date Recorded Body height Body mass index (BMI) Body weight Systolic blood pressure Diastolic blood pressure Provider Name and Address Organization Details Last Updated DateTime 04/10/2023 165.1 cm 35.6 kg/m2 63451.77 g 160 mm[Hg] 78 mm[Hg] Andressa Simon [facility] 16:04:06 Social History Question Answer Notes LastModified by Organizat ion Details LastModified Time Tobacco Smoking Status Current Every Day Smoker Sophia Montesinos negrito, [facility] 06/13/2022 16:39:41 Are You Blind Or Do You Have Difficulty Seeing? No [email or web address] Information n ot available 04/10/2023 In The 14 Days Before Symptom Onset, Have You Had Close Contact With A Laboratory-confirm ed COVID-19 While That Case Was Ill? No [email or web address] Information n ot available 04/10/2023 In The 14 Days Before Symptom Onset, Have You Had Close Contact With A Person Who Is Under Investigation For COVID-19 While That Person Was Ill? No [email or web address] Information not available 04/10/2023 Have You Been To An Area Known To Be High Risk For COVID-19? No [email or web address] Information not available 04/10/2023 Are You Deaf Or Do You Have Serious Difficulty Hearing? No [email or web address] Information not available 04/10/2023 What Type Of Diet Are You Following? DIABETIC [email or web address] Information n ot available 04/10/2023 Do You Use Your Seat Belt Or Car Seat Routinely? Yes Information not available 04/10/2023 Do You Have Smoke And Carbon Monoxide Detectors In Your Home? Yes Information not available 04/10/2023 How Much Tobacco Do You Smoke? No Information not available 06/13/2022 Do You Use Sunscreen Routinely? Yes [email or web address] Information not available 04/10/2023 Has Tobacco Cessation Counseling Been Provided? No Information not available 06/13/2022 Do You Have Difficulty Walking Or Climbing Stairs? No Information not available 04/10/2023 Sex: Unknown Functional Status Question Answer Note LastModified by Organizat ion Details LastModified Time Do you use any illicit or recreational drugs? No Information not available 06/13/2022 Do you or have you ever used any other forms of tobacco or nicotine? No Information not available 06/13/2022 Are you able to walk? YESWOREST [email or web address] Information not available 04/10/2023 Are you able to care for yourself? Yes [email or web address] Information n ot available 04/10/2023 Do you have difficulty dressing or bathing? No [email or web address] Information not available 04/10/2023 What is your exercise level? Occasional [email or web address] Information not available 04/10/2023 Mental Status Question Answer Note LastModified by Organization D etails LastModified Time Do you feel stressed (tense, restless, nervous, or anxious, or unable to sleep at night)? [id number] [email or web address] Information not available 04/10/2023 Family History Relationship Description Onset Age of this Age Resolved Age Notes LastModified by Organization Details LastModified Time Father Asthma [email or web address] Not available 16:49:04 Father Heart disease [email or web address] Not available 2022 16:49:15 Father Hypertensive disorder [email or web address] Not available 04/10 15:21:44 Sister Diabetes mellitus [email or web address] Not available 2022 16:49:23 Sister Genetic disease [email or web address] Not available 2022 16:49:44 Sister Hypercholest erolemia [email or web address] Not available 2022 16:49:58 Mother Hypercholest erolemia [email or web address] Not available 2022 16:49:58 Mother Cyst of ovary [email or web address] Not available 2022 16:50:14 Mother Parkinson's disease Not available 2024 12:25:42 Brother Hypertensive disorder [email or web address] Not available 04/10 15:21:44 Brother Disorder of lung [email or web address] Not available 04/10 15:22:11 Maternal Grandmother Dementia [email or web address] Not available 15:22:37 Paternal Grandmother Dementia [email or web address] Not available 15:22:37 Unspecified Relation Sickle cell-hemoglo bin SS disease niece [email or web address] Not available 04/10 15:23:03 Medical History Condition Response Allergies (Food, seasonal, environmental ) Y Other N Blood Transfusion N Drug/Latex Allergies/Reactions Y Breast Cancer N Dermatologic Disorders N Lung Disease Y [...] Disease Y Pre-Eclampsia N Hypertension Y Osteoporosis Y Thrombophilias N Gynecological History Statement/Question Response Abnormal Pap N Date of Last Mammogram Date of LMP 05/22/1995 STIs/STDs N HPV Vaccine N Current Control Method Menopause Date of Last Colonoscopy Sexually Active? N Menses Monthly N Date of DEXA bone scan Date of Last Pap Smear Sexual Problems? N Desired Control Method Hysterectom y Obstetrics History GPAL:G 0 P 0 0 0 0 Past Encounters Encounter ID Performer Location Encounter Start Date Encounter Closed Date Diagnosis/Indication Diagnosis SNOMED-CT Code Diagnosis ICD10 Code Diagnosis Note [id number] Gwen Conteh MD [place] [address],[place] [address] 06/13/2022 15:45:22 06/14/2022 15:15:35 Endometrium thickened 336915046 R93.89 Heavy tobacco smoker 499 8210674 50784 Z72.0 Uterine leiomyoma 088911 05 D25.9 [id number] Gwen Conteh MD [place] [address],[facility] [place] [address] 06/28/2022 15:25:12 07/05/2022 15:18:40 Endometrium thickened 816221609 R93.89 D25.9 [id number] Gwen Conteh MD [place] [address],[place] [address] 07/06/2022 15:35:01 07/06/2022 17:56:24 Endometrium thickened 022587026 R93.89 D25.9 Candidal intertrigo 2661 08316 B37.2 [id number] Gwen Conteh MD [place] [address],[place] [address] 07/19/2022 15:28:49 07/22/2022 11:14:14 Preoperative state 96335252 Z78.9 Endometrium thickened 44 5337085 R93.89 D25.9 [id number] Gwen Conteh MD [place] [address],[place] [address] 08/01/2022 16:04:25 08/02/2022 10:27:20 Endometrium thickened 275791752 R93.89 D25.9 Endometrial carcinoma 25 4830394 C54.1 [id number] Romelia Saeed TAMIA [place] [address],[place] [address] 04/10/2023 15:35:44 04/11/2023 09:32:44 Vulval irritation 421890449 N90.89 vaginitis panel sent per pt requestrx sent, nystatin ointmentve g based moisturize r routine discussedv ulvar care guidelines reviewed Skin lesion 53017145 L98 .9 cx sentrecomm ended dermatolog ist [...] counseling and review of plan of care. [id number] CAMERON [facility] [address],[place] [address] 10/24/2024 11:34:33 10/25/2024 09:28:28 Vulval irritation 422828184 N90.89 Vulvar care guidelines discussed, d/c use of feminine wipes which likely has been causing dermatitis vaginitis panel sentRx nystatin-t riamcinolo nerec crisco/rusty onut oil/or extra virgin olive oil to vulva daily Candidiasis of skin 4984 3006 B37.2 keep area clean/dryn ystatin powder PRNRTC for WWE Time spent in visit is a total of 30 mins with at least 50% of visit consisting of counseling and review of plan of care. Health Concerns Section Related Observation LastModified by Organization Detai ls LastModified Time None Recorded Concern Status LastModified by Organization Details LastModified Time None Recorded Advance Directives Directive None Recorded Payers Encounter Date Sequence Insurance Name Policy Number Policy Shen Covered Member ID Shen Member ID Guarantor Name 07/19/2022 2 [place] [facility] Lissy Hernández [id number] Lissy Edgar 07/19/2022 1 [facility] (MEDICARE REPLACEMENT/A DVANTAGE - HMO) [id number] Lissy Moi Hernández [id number] Lissyjoel Rhodeses 08/01/2022 2 [place] [facility] Lissy Hernández [id number] Lissy Edgar 08/01/2022 1 [facility] (MEDICARE REPLACEMENT/A DVANTAGE - HMO) [id number] Lissyjoel Hernández [id number] Lissy Edgar 04/10/2023 2 [place] [facility] Lissy Edgar [id number] Lissy Edgar 04/10/2023 1 [facility] (MEDICARE REPLACEMENT/A DVANTAGE - HMO) [id number] Lissy D Edgar [id number] Lissyjoel Rhodeses 10/24/2024 1 [facility] (MEDICARE REPLACEMENT/A DVANTAGE - HMO) [id number] Lissy D Edgar [id number] Lissyjoel Rhodeses Notes Date Note Type Note Provider Name and Address Organization Details Recorded Time 3 text/html 71yo G0 with 2cm endometrial complex on US. Cervical stenosis and unable to do EMB in office. No bleeding. [facility] D and C next week. Gwen Conteh MD [address], [place], [address], [facility] 07/22/2022 09:49:39 3 text/html post op D and C 07/25. Had diarrhea after, resolved. Started some vaginal bleeding this weekend, spotting or a little heavier, now stopped. no pain. path: at least atypical complex hyperplasia and highly likely to be endometriod carcinoma Gwen Conteh MD [address], [place], [address], [facility] 08/01/2022 18:47:45 3 text/html 72yop[age] for [...] complex hyperplasia CAMERON Alva [address], [place], [address], [facility] 04/11/2023 09:13:38 5 text/html 74yopresents for evaluation of vulvar irritation/drynesshas noticed symptoms over the past 2 weeksno d/c or odorsnot SAhas been using feminine wipes itchy/red rash under breast and pannus that comes and goes TL, BSO w/ gyne onco 2022 for complex hyperplasia CAMERON Alva [address], [place], [address], [facility] 10/25/2024 09:21:17 OBGyn Episode No OBEpisode recorded.
--- OUTSIDE RECORDS SUMMARY | 2024-10-30 16:05 | XMS_ITS ---
Author Organization [facility] [address] Address [address] [place] [address] Care Team Providers Care Consultative Sales Associate Name Role Phone Zhou Garcia Primary Care Provide r Active Problems Problem Noted Date Diagnosed Date H/O prosthetic aortic valve replacement 01/28/20 22 Achalasia 08/03/2021 Overview (08/03/2021): Added automatically from request for surgery [id number] Tobacco dependence syndrome 08/07/2020 Pacemaker lead malfunction 06/26/2020 Overview (07/19/2021): Added automatically from request for surgery [id number] Added automatically from request for surgery [id number] Esophageal dysphagia 06/26/2020 Overview (07/03/2020): Added automatically from request for surgery [id number] Heart block 06/17/2020 S/P placement of cardiac [...] (07/19/2021): Added automatically from request for surgery [id number] Added automatically from request for surgery [id number] Added automatically from request for surgery [id number] 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
--- OUTSIDE RECORDS SUMMARY | 2024-10-30 16:05 | XMS_ITS | Clinical Summary ---
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
--- OUTSIDE RECORDS SUMMARY | 2024-10-30 16:05 | XMS_ITS | Clinical Summary ---
Author Organization [facility] Address [address] [facility] [place] [address] Care Team Providers Care Training Program Developer Name Role Phone Zhou Garcia Primary Care Provider + Source Comments [facility],non-owned Affiliates and Associated Physician Practices is amultiple site organization consisting of ambulatory clinics and hospital sitesin [place], [place], [place] and [place]. This disclosure is being madepursuant to the Care Everywhere program and may not contain all information available regarding this patient. Last updated 18.[facility] Allergies Active Allergy Reactions Criticality Noted Date [...] daily 30 tablet 3 Active nystatin (Mycostatin) 758025 UNIT/GM powder Apply to affected area 2 [...] Type 2 diabetes mellitus with diabetic polyneuro trery 04/20/2021 Atrioventricular block, complete 08/07/2020 Tobacco dependence syndrome 05/25/2020 Acute congestive heart failure 05/08/2020 Atrioventricular block, complete 05/08/2020 Chronic obstructive pulmonary disease 05/08/2020 Adenoma of colon 02/23/2020 Chronic renal failure syndrome 04/23/2019 Hyperlipidemia 04/23/2019 Dysphagia 01/06/2019 Overview (08/25/2022): Added automatically from request for surgery [id number] Added automatically from request for surgery [id number] Added automatically from request for surgery [id number] Essential (primary) hypertension 05/03/2018 Family History Medical [...] on file Legal Sex Female 11:38 AM UI APPLICATION DEVELOPER Gender Identity Not on file Sexual Orientation [...] - 5.1 mmol/L 09/21/2022 6:55 AM CDT [facility] Chloride 108(H) 98 - 107 mmol/L 09/21/2022 6:55 AM CDT [facility] CO2 23 23 - 31 mmol/L 09/21/2022 6:55 AM CDT [facility] Calcium 10.5(H) 8.4 - 10.4 mg/dL 09/21/2022 6:55 AM CDT [facility] Anion Gap 11 8 - 18 mmol/L 09/21/2022 6:55 AM CDT [facility] BUN 22(H) 9.8 - 20.1 mg/dL 09/21/2022 6:55 AM CDT [facility] Creatinine 1.34(H) 0.57 - 1.11 mg/dL 09/21/2022 6:55 AM CDT [facility] Alkaline Phosphatase 111 40 - 150 U/L 09/21/2022 6:55 AM CDT [facility] ALT 21 0 - 61 U/L 09/21/2022 6:55 AM CDT [facility] AST 20 5 - 34 U/L 09/21/2022 6:55 AM CDT [facility] Protein Total 7.3 6.4 - 8.3 gm/dL 09/21/2022 6:55 AM CDT [facility] Albumin 4.3 3.2 - 4.6 gm/dL 09/21/2022 6:55 AM CDT [facility] Bilirubin Total 0.7 0.2 - 1.2 mg/dL 09/21/2022 6:55 AM CDT [facility] eGFR by CKD-EPI 42(L) >=90 mL/min/1.7 3 m2 09/21/2022 6:55 AM CDT [facility] Blood BLOOD SPECIMEN / Unknown Venipuncture / Unknown 09/21/2022 6:11 AM CDT 09/21/2022 6:28 AM CDT Joni Fair MD LAB - CHEMISTRY ORDERABLES Final Result Performing Organization Address City/State/[facility] Co de Phone Number [facility] [address] [place] [address] from Last 3 Months or Most Recently Relevant to Health Maintenance Insurance MEDICAID - [place] Care Teams Training Program Developer Relationship Specialty Start Date End Date Zhou Garcia DO [address] [place] [address] PCP - General 08/05/22
--- OUTSIDE RECORDS SUMMARY | 2024-10-30 16:05 | XMS_ITS | CONTINUITY OF CARE DOCUMENT ---
Author Name mini morse Address Unknown Organization [facility] Address [address] [place] [address] Phone [phone] Care Team Providers Care Oxide Furnace Tender Name Role Phone Jase Silvestre MD Unavailable [phone] Thompson Mathew MD Unavailable [phone] Thompson Mathew MD Unavailable PROBLEMS Condition Status [...] In-person encounter Office Visit Jase Silvestre MD [facility] Achalasia - In-person encounter Office Visit Jase Silvestre MD [facility] Complete heart block S/P Biotronik dc [...] Policy type / Coverage type Judi red green party ID UHC MEDICARE COMPLETE HMO Other [id number] ADVANCE DIRECTIVES Name Date DISCUSSED - NO DECISION MADE TREATMENT PLAN Date Name Performer [id number],S, S TRONGLY ENCOURAGED TO STOP SMOKING; SMOKING CESSATION TECHNIQUES DISCUSSED. Valentina Rach [id number],S, C ontinues on Metformin. Reduced intake of carbohydrates and sugars advised. Valentina Rach [id number],S, P er hospital records. Unclear why she is not on Aspirin. Valentina Rach [id number],C, D evice check today showed 0% AT/AF burden, 4 episodes of Afib. % pacing : RA:2%, RV: 99%. Valentina Rach [id number],S, s /p recent open aortic valve replacement. The incision is healing well. She continues to follow with CT surgery. Valentina Rach [id number],S, P er hospital records. Unclear why she is not on Aspirin. Jase Silvestre MD [id number],S, S CARMINALY ENCOURAGED TO STOP SMOKING; SMOKING CESSATION TECHNIQUES DISCUSSED. Jase Silvestre MD [id number],S, C ontinues on Metformin. Reduced intake of [...]
--- OUTSIDE RECORDS SUMMARY | 2024-10-30 16:05 | XMS_ITS | Referral Summary ---
Author Organization [facility] [address] [facility] [address] Address [address] [place] [address] Care Team Providers Care Associate Director Data & Analytics Name Role Phone Zhou Garcia Primary Care Provide r Encounters Date Type Department Care Team Description 08/28/2024 1:00 PM CDT Ancillary Procedure [facility] Cardiology [address] [place] [address] [address] [place] [address] Atrioventricular block, complete (HCC); Presence [...] (08/03/2021): Added automatically from request for surgery [id number] Tobacco dependence syndrome 08/07/2020 Pacemaker lead malfunction 06/26/2020 Overview (07/19/2021): Added automatically from request for surgery [id number] Added automatically from request for surgery [id number] Esophageal dysphagia 06/26/2020 Overview (07/03/2020): Added automatically from request for surgery [id number] Heart block 06/17/2020 S/P placement of cardiac [...] (07/19/2021): Added automatically from request for surgery [id number] Added automatically from request for surgery [id number] Added automatically from request for surgery [id number] 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 Never 07/02/2020 Do you belong to any clubs o r organizations such as sabianism groups, unions, fraternal or athletic groups, or [...] place to sleep or slept in a mcfp (including now)? No 07/02/2020 Comments No Sex and Gender Information Value Date Recorded Sex Assigned at Not on file Legal Sex Female 4:15 AM CRAYON SAWYER Gender Identity Not on file Sexual Orientation Not on file Last Filed Vital Signs Vital Sign Reading Time Taken Comments Blood Pressure 130/80 05/16/2023 1:46 PM CRAYON SAWYER Pulse 66 05/16/2023 1:46 PM CRAYON SAWYER Temperature 36.5 C (97.7 F) 10/08/2021 12:05 PM CDT Respiratory Rate 18 10/08/2021 12:05 PM CDT Oxygen Saturation 97% 05/16/2023 1:46 PM CRAYON SAWYER Inhaled Oxygen Concentration - - Weight 97.5 kg (215 lb) 05/16/2023 1:46 PM CRAYON SAWYER Height 167.6 cm (5' 6) 05/16/2023 1:46 PM CRAYON SAWYER Body Mass Index 34.7 05/16/2023 1:46 PM CRAYON SAWYER Plan of Treatment Not on file Medical Devices Implanted Type Area Assayer Device Identifier Shelf Expiration Date Model / Serial / Lot Pacemaker- 021 Implanted:2020 (Quantity not on file) Pacemaker N/A: Heart Medtronic Biotronik [employer] [id number] Promri Solia S 60cm Lead Pacing Steroid Eluting - [id number] - [id number] Implanted:Qty: 1 on 05/08/2020 by Jase Silvestre MD at [facility] Left: Chest [employer]ronik Inc 02/18/2022 [id number] / [id number] / Biotronik Inc [id number] Solia S 53cm Steroid Elute Bipolar Active Fixation Endocardial - [id number] - [id number] Implanted:Qty: 1 on 05/08/2020 by Jase Silvestre MD at [facility] Left: Chest [employer]ik Inc 03/21/2022 [id number] / [id number] / Bi[employer]ronik Inc [id number] Edora Promri 26s16r1.5mm Dual Chamber Rate Adaptive Unipolar Bipolar - [id number] - [id number] Implanted:Qty: 1 on 05/08/2020 by Jase Silvestre MD at [facility] Left: Chest [employer] Inc 07/19/2021 [id number] / [id number] / [employer] [id number] Inspiris Resilia Leaflet Sewing Ring 23mm Valve Aortic Bovine - [id number] - [id number] Implanted:Qty: 1 on 07/01/2020 by Jesse Segura MD at [facility] N/A: Heart [employer] 01/15/2024 [id number] / [id number] / Procedures Procedure Name Priority Date/Time Associated Diagnosis Comments DEVICE CHECK - IN OFFICE Routine 08/28/2024 12:54 PM CDT Atrioventricular block, complete (HCC) Presence of cardiac pacemaker POCT LIPID PANEL Routine 05/16/2023 2:41 PM CRAYON SAWYER Lipid screening EGFR Routine 09/20/2021 4:52 PM [...] RAVEN. Appropriate lead measurements noted. Presenting rhythm: -I O PSYCHOLOGIST with PVC's. Underlying rhythm-CHB no v-escape @ DDI 30 bpm. Consider Pacemaker Dependent. AP-18%, I O PSYCHOLOGIST-96%. No Atrial high rate episodes noted. No Ventricular high rate episodes noted. Medications; ASA 81 mg, Triamterene-Hydrochlorothiazide, Norvasc, Lotensin. No programming changes made to device settings. See scanned report. Office pacemaker f/u 12/03/2025. Biotronik remote f/u 12/03/2024. Sienna Gutierrez RN Murphy Kim MD CV CARDIAC SERVICES PROC EDURES Final Result * POCT lipid panel (05/16/2023 2:41 PM CRAYON SAWYER) Cholesterol, POC 158 mg/dL HDL, POC 49 mg/dL Triglycerides, POC 262 mg/dL LDL Cholesterol POC 57 mg/dL Chol/HDL Ratio, POC 1.2 Non-HDL Cholesterol, POC 109 mg/dL Cholesterol Total, POC 158 mg/dL Capillary blood 05/16/2023 2 :41 PM CRAYON SAWYER us Murphy Kim MD POINT OF CARE TEST ORDER YESENIA Final Result * (ABNORMAL) eGFR (09/20/2021 4:52 PM CDT) eGFR 31(L) 90 - 130 mL/min/1. 73 m2 [facility] Comment: Interpretive Data Reference Interval Normal [...] NP LAB BLOOD ORDERABLES F inal Result [facility] Department [place] [address] * (ABNORMAL) POCT hemoglobin A1c (09/20/2021 4:23 PM CDT) Hgb A1C, POC 6.7(H) 4.0 - 5.6 % [facility] Est Average Gluc POC 146 mg/dL [facility] Comment: The ADA recommends reporting an estimated Average Glucose (eAG) with all Hemoglobin A1c results using the equation derived from a study of 507 normal and diabetic adults. Minority populations were underrepresented and children were not included. (Diabetes Care 31:7512-9293, 2008). The eAG is not equivalent to a fasting glucose. Blood 09/20/2021 4:23 PM CDT 09/20/2021 4:23 PM CDT Murphy Ellsworth MD PhD POINT OF CARE TEST ORD ERABLES Final Result Performing Organization Address City/State/[facility] Co de Phone Number [facility] Department [place] [address] from Last 3 Months or Most Recently Relevant to Health Maintenance Insurance IDPA [facility] MEDICARE ADVANTAGE IDPA Advance Directives For more information, please contact: [phone] * Full Code (Latest Code Status on File) Date Activated Date Inactivated Comments 10/07/2021 5:50 PM 10/08/2021 6:47 PM * Full Code Date Activated Date Inactivated Comments 07/01/2020 2:59 PM 07/07/2020 9:55 PM * Full Code Date Activated Date Inactivated Comments 05/08/2020 3:55 AM 05/09/2020 8:05 PM Care Teams Associate Director Data & Analytics Relationship Specialty Start Date End Date Zhou Garcia DO [address] [place] [address] [phone] PCP - General Family Medicine 07/12/18
--- OUTSIDE RECORDS SUMMARY | 2024-10-30 16:05 | XMS_ITS | Clinical Summary ---
Author Organization [facility] [address] Address [address] [place] [address] Care Team Providers Care Coupon And Bond Collection Clerk Name Role Phone Zhou Garcia Primary Care [...] (08/03/2021): Added automatically from request for surgery [id number] Tobacco dependence syndrome 08/07/2020 Pacemaker lead malfunction 06/26/2020 Overview (07/19/2021): Added automatically from request for surgery [id number] Added automatically from request for surgery [id number] Esophageal dysphagia 06/26/2020 Overview (07/03/2020): Added automatically from request for surgery [id number] Heart block 06/17/2020 S/P placement of cardiac [...] (07/19/2021): Added automatically from request for surgery [id number] Added automatically from request for surgery [id number] Added automatically from request for surgery [id number] 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 09/2019 Nonrheumatic aortic valve stenosis 06/20/2019 Rosacea 06/09/2019 Type 2 diabetes mellitus wit hout complication, without long-term current use of insulin ([facility]/HCC) 04/23/2019 Chronic renal failure syndrome 04/23/2019 Hyperlipidemia 04/23/2019 Esophageal dysphagia 01/06/2019 Overview (07/19/2021): Added automatically from request for surgery [id number] Heart murmur 01/06/2019 Tobacco use disorder 01/06/2019 Medical non-compliance 11/27/2018 Hypertension 05/03/2018 Transient ischemic attack 05/03/2018 Encounter for other preprocedural examination Encounters Date Type Department Care Team Description 08/28/2024 1:00 PM CDT Ancillary Procedure [facility] Cardiology [address] [place] [address] Atrioventricular block, complete (HCC); Presence of cardiac [...] often do you attend chur ch or sikhism services? Never 07/02/2020 Do you belong to any clubs o r organizations such as orthodox groups, unions, fraternal or athletic groups, [...] place to sleep or slept in a senior care (including now)? No 07/02/2020 Comments No Sex and Gender Information Value Date Recorded Sex Assigned at Not on file Legal Sex Female 4:15 AM DISPLAY CARD WRITER Gender Identity Not on file Sexual Orientation Not on file Obstetrics History Last Filed Vital Signs Vital Sign Reading Time Taken Comments Blood Pressure 130/80 05/16/2023 1:46 PM DISPLAY CARD WRITER Pulse 66 05/16/2023 1:46 PM DISPLAY CARD WRITER Temperature 36.5 C (97.7 F) 10/08/2021 12:05 PM CDT Respiratory Rate 18 10/08/2021 12:05 PM CDT Oxygen Saturation 97% 05/16/2023 1:46 PM DISPLAY CARD WRITER Inhaled Oxygen Concentration - - Weight 97.5 kg (215 lb) 05/16/2023 1:46 PM DISPLAY CARD WRITER Height 167.6 cm (5' 6) 05/16/2023 1:46 PM DISPLAY CARD WRITER Body Mass Index 34.7 05/16/2023 1:46 PM DISPLAY CARD WRITER Plan of Treatment Health Maintenance Due Date [...] history exists Medical Devices Implanted Type Area Administration Clerk Device Identifier Shelf Expiration Date Model / Serial / Lot Pacemaker- 021 Implanted:2020 (Quantity not on file) Pacemaker N/A: Heart Medtronic Biotronik Inc [id number] Promri Solia S 60cm Lead Pacing Steroid Eluting - [id number] - [id number] Implanted:Qty: 1 on 05/08/2020 by Jase Silvestre MD at [facility] Left: Chest [employer]ik Inc 02/18/2022 [id number] / [id number] / Bi[employer]ron[employer] Inc [id number] Solia S 53cm Steroid Elute Bipolar Active Fixation Endocardial - [id number] - [id number] Implanted:Qty: 1 on 05/08/2020 by Jase Silvestre MD at [facility] Left: Chest [employer] 03/21/2022 [id number] / [id number] / Bi[employer]ron[employer] Inc [id number] Edora Promri 16o10p9.5mm Dual Chamber Rate Adaptive Unipolar Bipolar - [id number] - [id number] Implanted:Qty: 1 on 05/08/2020 by Jase Silvestre MD at [facility] Left: Chest [employer] Inc 07/19/2021 [id number] / [id number] / [employer] [id number] Inspiris Resilia Leaflet Sewing Ring 23mm Valve Aortic Bovine - [id number] - [id number] Implanted:Qty: 1 on 07/01/2020 by Jesse Segura MD at [facility] N/A: Heart [employer] 01/15/2024 [id number] / [id number] / Procedures Procedure Name Priority Date/Time Associated Diagnosis Comments DEVICE CHECK - IN OFFICE Routine 08/28/2024 12:54 PM CDT Atrioventricular block, complete (HCC) Presence of cardiac pacemaker POCT LIPID PANEL Routine 05/16/2023 2:41 PM DISPLAY CARD WRITER Lipid screening EGFR Routine 09/20/2021 4:52 PM [...] RAVEN. Appropriate lead measurements noted. Presenting rhythm: -FREIGHT CALLER with PVC's. Underlying rhythm-CHB no v-escape @ DDI 30 bpm. Consider Pacemaker Dependent. AP-18%, FREIGHT CALLER-96%. No Atrial high rate episodes noted. No Ventricular high rate episodes noted. Medications; ASA 81 mg, Triamterene-Hydrochlorothiazide, Norvasc, Lotensin. No programming changes made to device settings. See scanned report. Office pacemaker f/u 12/03/2025. Biotronik remote f/u 12/03/2024. Sienna Gutierrez, JAREK us Murphy Kim MD CV CARDIAC SERVICES PROC EDURES Final Result * POCT lipid panel (05/16/2023 2:41 PM DISPLAY CARD WRITER) Cholesterol, POC 158 mg/dL HDL, POC 49 mg/dL Triglycerides, POC 262 mg/dL LDL Cholesterol POC 57 mg/dL Chol/HDL Ratio, POC 1.2 Non-HDL Cholesterol, POC 109 mg/dL Cholesterol Total, POC 158 mg/dL Capillary blood 05/16/2023 2 :41 PM DISPLAY CARD WRITER us Murphy Kim MD POINT OF CARE TEST ORDER YESENIA Final Result * (ABNORMAL) eGFR (09/20/2021 4:52 PM CDT) eGFR 31(L) 90 - 130 mL/min/1. 73 m2 [facility] Comment: Interpretive Data Reference Interval Normal [...] NP LAB BLOOD ORDERABLES F inal Result [facility] Department [place] [address] * (ABNORMAL) POCT hemoglobin A1c (09/20/2021 4:23 PM CDT) Hgb A1C, POC 6.7(H) 4.0 - 5.6 % [facility] Est Average Gluc POC 146 mg/dL [facility] Comment: The ADA recommends reporting an estimated Average Glucose (eAG) with all Hemoglobin A1c results using the equation derived from a study of 507 normal and diabetic adults. Minority populations were underrepresented and children were not included. (Diabetes Care 31:3020-4192, 2008). The eAG is not equivalent to a fasting glucose. Blood 09/20/2021 4:23 PM CDT 09/20/2021 4:23 PM CDT Murphy Ellsworth MD PhD POINT OF CARE TEST ORD ERABLES Final Result [facility] Department [place] [address] from Last 3 Months or Most Recently Relevant to Health Maintenance Insurance IDPA [facility] MEDICARE ADVANTAGE IDPA [facility] HMO REF [facility] MEDIC[facility] ADVANTAGE Advance Directives For more information, please contact: [phone] * Full Code (Latest Code Status on File) Date Activated Date Inactivated Comments 10/07/2021 5:50 PM 10/08/2021 6:47 PM * Full Code Date Activated Date Inactivated Comments 07/01/2020 2:59 PM 07/07/2020 9:55 PM * Full Code Date Activated Date Inactivated Comments 05/08/2020 3:55 AM 05/09/2020 8:05 PM Care Teams Coupon And Bond Collection Clerk Relationship Specialty Start Date End Date Zhou Garcia DO [address] [place] [id number] PCP - General Family Medicine 07/12/18
== END 2024-10-30 18:21 | disposition home or self-care (01) ==
PROVIDERS: Emergency Provider Student in an Organized Health Care Education/Training Program; PCP Student in an Organized Health Care Education/Training Program
DX: R20.0 Anesthesia of skin (principal); R20.2 Paresthesia of skin; L27.0 Generalized skin eruption due to drugs and medicaments taken internally; T36.8X5A Adverse effect of other systemic antibiotics, initial encounter
CPT/HCPCS: 36415; 71045; 80048; 85025; 96361; 96374; 96375; 99284; J1200; J2919; J7030